=== PATIENT | male | born 1945 | race Caucasian/White ===

== ENCOUNTER 2017-03-19 13:43 | Observation (INO) ==
[2017-03-19] MEDS ORDERED: 0.9 % Sodium Chloride 500 ML IVC ONE (13:56)
[2017-03-19] MEDS ORDERED: Aspirin 81 MG TAB.CHEW PO ONE (13:56)
[2017-03-19] MEDS ORDERED: Nitroglycerin 0.4 MG TAB.SUBL SL ONE (13:56)
--- NOTE | 2017-03-19 13:59 | Emergency Department Note ---
Disposition Clinical Impression: Chest pain Disposition: Admitted As Inpatient Condition: Good Time of Disposition: 17:06 Chest Pain HPI - General Chief Complaint: ED Chest Pain Stated Complaint: Chest Pain Time Seen by Provider: 03/19/17 13:47 Source: patient Mode of arrival: ambulatory Limitations: no limitations Vital Signs Reviewed: Yes Nursing Notes Reviewed: Yes - History of Present Illness HPI Narrative: Patient presents to the ED with the chief complaint of chest pain. Patient is having his anginal equivalent to a SD he had 5 weeks ago. He required 2 stents placed at [facility] in [place]. He has been on aspirin and Plavix daily and has not missed a dose. 6. Approximately 30 minutes prior to arrival. He was getting ready to go to [place] and had the acute onset of left-sided chest heaviness and pressure. States that it was a very intense pressure that radiated into his neck and into his shoulder. He states that he immediately took a nitroglycerin which brought his pain from a 10 -5. The pain is sent started moving down into his arm on the left. States that this is the exact symptoms he had previously and he was concerned. He did get nauseated and diaphoretic which resolved after the nitroglycerin. He did develop a "nitroglycerin headache." And states that he gets this every time he takes nitroglycerin. No fever, chills, cough, congestion, changes in vision, abdominal pain, vomiting, diarrhea, pain or swelling in his legs. No history of DVT or PE. No history of malignancy. He has not smoked for over 30 years. Severity scale (1-10): 5 - Related Data Previous Rx's Medication Instructions Recorded OxyCODONE/APAP 5/325 [Percocet 1 each PO Q6HR PRN #12 tablet 05/15/16 5/325 MG] OxyCODONE/APAP 5/325 [Percocet 1 each PO Q6HR PRN #15 tablet 11/24/16 5/325 MG] Allergies Allergy/AdvReac Type Severity Reaction Status Date / Time No Known Allergies Allergy Verified 11/24/16 14:48 All systems ED: reviewed and negative except as stated. Cardiovascular: Reports: chest pain, dyspnea on exertion Respiratory: Reports: dyspnea Gastrointestinal: Reports: nausea Neurological: Reports: headache Chest Pain PMH - Past Medical History Medical history: Reports: myocardial infarction Psychiatric history: Reports: no psych history - Social History Smoking Status: Former smoker Alcohol use: Reports: none Drug use: Reports: none Physical Exam - General Limitations: no limitations General appearance: alert, other (Patient appears uncomfortable) - Head Head exam: atraumatic, normocephalic, normal inspection - Eye Eye exam: Present: normal appearance, PERRL, EOMI - ENT ENT exam: normal exam, normal oropharynx, mucous membranes moist - Neck Neck exam: Present: normal inspection, full ROM, trachea midline - Chest Chest inspection: Present: normal inspection, symmetric chest wall rise - Respiratory Respiratory exam: Present: normal lung sounds bilaterally - Cardiovascular Cardiovascular exam: Present: regular rate, normal rhythm, normal heart sounds - Abdominal Exam Abdominal exam: Present: soft, Non-Tender. Absent: tenderness, distention, guarding, rebound, rigidity - Extremities Exam Extremities exam: Present: normal inspection, full ROM. Absent: tenderness, pedal edema - Neurological Exam Neurological exam: Present: alert, oriented X3 - Skin Skin exam: Present: warm, dry, intact, normal color Course Course Narrative: Patient presenting with signs and symptoms concerning for ACS. His initial EKG does not show any acute changes. However, he is having his anginal equivalent. We will obviously check a troponin. We will also likely repeat his EKG. We will give him more nitroglycerin to see if we can completely resolve his pain. Patient will be admitted to the hospital - Reevaluation(s) Reevaluation #1: Patient was pain-free after nitroglycerin. Now complaining of headache. We will admit for angina. Repeat EKG was unchanged. Vital Signs Temperature 97.8 F 03/19/17 13:45 Pulse Rate 66 03/19/17 13:45 Respiratory Rate 20 03/19/17 13:45 Blood Pressure 136/77 03/19/17 13:45 O2 Sat by Pulse Oximetry 97 03/19/17 13:45 Temperature 97.8 F 03/19/17 13:45 Pulse Rate 55 03/19/17 17:00 Respiratory Rate 18 03/19/17 17:25 Blood Pressure 127/110 03/19/17 17:25 O2 Sat by Pulse Oximetry 98 03/19/17 17:00 Oxygen Delivery Oxygen Delivery Nasal Cannula Chest Pain - Medical Records Medical records reviewed: Yes I reviewed the patient's medical records. - Lab Data Lab results reviewed: Yes I reviewed the patient's lab results. Result diagrams: 03/19/17 14:18 03/19/17 14:18 Lab Results 03/19/17 03/19/17 03/19/17 Range/Units 14:18 14:18 14:18 WBC 7.1 (4.3-11.1) K/mcL RBC 5.05 (4.19-5.50) M/mcL Hgb 14.1 (12.9-16.9) g/dL Hct 41.7 (37.5-50.1) % MCV 82.6 L (83.0-100.0) fL MCH 27.9 L (28.0-33.3) pg MCHC 33.8 (31.6-35.5) g/dL RDW 14.1 (11.5-14.5) % Plt Count 365 (140-400) K/mcL MPV 8.9 L (9.4-12.4) fL Immature Gran % 0.3 (0-4) % Seg Neutrophils % 65.9 % Lymphocytes % 15.8 % Monocytes % 12.7 % Eosinophils % 3.9 % Basophils % 1.4 % Neutrophils # 4.7 (1.6-8.9) K/mcL Lymphocytes # 1.1 (0.6-4.6) K/mcL Monocytes # 0.9 (0.0-1.3) K/mcL Eosinophils # 0.3 (0.0-0.6) K/mcL Basophils # 0.1 (0.0-0.2) K/mcL PT 12.8 H (9.4-12.1) Seconds INR 1.2 APTT 30.6 (26.0-36.0) Seconds Sodium 138 (136-145) mEq/L Potassium 3.8 (3.5-4.5) mEq/L Chloride 102 (98-109) mEq/L Carbon Dioxide 26 (19-29) mEq/L BUN 18 (8-26) mg/dL Creatinine 1.19 (0.72-1.25) mg/dL Est GFR ( Amer) > 60 (> 60) Est GFR (Non-Af Amer) > 60 (> 60) BUN/Creatinine Ratio 15 (6-26) Glucose 104 H (70-99) mg/dL Calculated Osmolality 288 (280-300) Calcium 9.8 (8.6-10.8) mg/dL Troponin I (0-0.03) ng/mL 03/19/17 Range/Units 14:18 WBC (4.3-11.1) K/mcL RBC (4.19-5.50) M/mcL Hgb (12.9-16.9) g/dL Hct (37.5-50.1) % MCV (83.0-100.0) fL MCH (28.0-33.3) pg MCHC (31.6-35.5) g/dL RDW (11.5-14.5) % Plt Count (140-400) K/mcL MPV (9.4-12.4) fL Immature Gran % (0-4) % Seg Neutrophils % % Lymphocytes % % Monocytes % % Eosinophils % % Basophils % % Neutrophils # (1.6-8.9) K/mcL Lymphocytes # (0.6-4.6) K/mcL Monocytes # (0.0-1.3) K/mcL Eosinophils # (0.0-0.6) K/mcL Basophils # (0.0-0.2) K/mcL PT (9.4-12.1) Seconds INR APTT (26.0-36.0) Seconds Sodium (136-145) mEq/L Potassium (3.5-4.5) mEq/L Chloride (98-109) mEq/L Carbon Dioxide (19-29) mEq/L BUN (8-26) mg/dL Creatinine (0.72-1.25) mg/dL Est GFR ( Amer) (> 60) Est GFR (Non-Af Amer) (> 60) BUN/Creatinine Ratio (6-26) Glucose (70-99) mg/dL Calculated Osmolality (280-300) Calcium (8.6-10.8) mg/dL Troponin I 0.01 (0-0.03) ng/mL - Radiology Data Radiology results reviewed: Yes I reviewed the patient's radiology results. - EKG Data EKG attestation: Yes I reviewed and interpreted this EKG. EKG results narrative: Sinus rhythm, rate 65, PA interval 172, QRS 96, QTC 42, left axis deviation, no acute ischemic changes. We will trend EKGs. Repeat EKG at 1437 was unchanged. Patient is pain-free Critical Care Time Critical Care Time: Yes Total Critical Care Time: 35 Attestation: Critical care time 35 minutes managing patient's chest pain. Kailee - Kailee Situation: Demographics, MOA Background: Presenting Complaint, Relevant PMH, Meds, & Allergies Assessment: Vital Signs, Course and respsone to treatment, Exam Concerns, Patient/Family Expectation, Pertinant Lab Results, Outstanding Labs Recommendation: Recommendation based on pending studies, treatments, or consults Kailee Report Given to: Dr. Delvalle for admission Kailee Repor Time: 17:06 Attestation Statement - Attestation Attestation: Patient was seen with resident physician. I reviewed the history, physical, assessment and plan, and agree with the findings. I also personally evaluated this patient and had [id number] time with this patient. 8-year-old male presents to emergency Department chief complaint of chest pain. Pain is left chest pressure sensation radiating to the left arm across the chest. The same as his heart attack pain was proximally 5 weeks ago when he received stents at [facility] in [place]. Is associated with diaphoresis and shortness of breath. The pain has been ongoing waxing and waning for approximately 1-1.5 hours. He took one sublingual nitroglycerin that he had with him and that resolved the pain about 30%. As other symptoms at this time currently is having pain. On exam vital signs are stable. Heart regular rhythm and rate. Lungs clear. Abdomen soft and nontender. Extremity is unremarkable. Neurological the patient's intact. EKG shows no acute ischemic changes on arrival. We will do chest x-ray repeat EKG, troponin, we will administer nitroglycerin and aspirin and reevaluate. Chest x-ray revealed some mediastinal widening. CT scan of the chest was not obtained and did not reveal any significant abnormalities. Patient's pain was improved while in the emergency department. However considering his cardiac history he will require hospitalization and further evaluation and treatment. His initial troponin was negative, and 2 EKGs showed no acute ischemic changes. I agree with the resident physician assessment and plan. Critical care time 35 minutes.
[2017-03-19 14:30] LABS: Basophils # 0.1 K/mcL (0.0-0.2); Basophils % 1.4 %; Eosinophils # 0.3 K/mcL (0.0-0.6); Eosinophils % 3.9 %; Hematocrit 41.7 % (37.5-50.1); Hemoglobin 14.1 g/dL (12.9-16.9); Immature Granulocytes % 0.3 % (0-4); Lymphocytes # 1.1 K/mcL (0.6-4.6); Lymphocytes % 15.8 %; Mean Corpuscular HGB Conc 33.8 g/dL (31.6-35.5); Mean Corpuscular Hemoglobin 27.9 pg (28.0-33.3); Mean Corpuscular Volume 82.6 fL (83.0-100.0); Mean Platelet Volume 8.9 fL (9.4-12.4); Monocytes # 0.9 K/mcL (0.0-1.3); Monocytes % 12.7 %; Neutrophils # 4.7 K/mcL (1.6-8.9); Platelet Count 365 K/mcL (140-400); Red Blood Count 5.05 M/mcL (4.19-5.50); Red Cell Distribution Width 14.1 % (11.5-14.5); Segmented Neutrophils % 65.9 %
[2017-03-19] MEDS ORDERED: *HR* HYDROmorphone (PF) 1 MG/ML SYRINGE IVP ONE ×2 (14:33→16:54)
[2017-03-19 14:35] LABS: INR 1.2; Prothrombin Time 12.8 Seconds (9.4-12.1)
[2017-03-19 14:38] LABS: Activated Partial Thrombo Time 30.6 Seconds (26.0-36.0)
[2017-03-19 14:43] LABS: BUN/Creatinine Ratio 15 (6-26); Blood Urea Nitrogen 18 mg/dL (8-26); Calcium 9.8 mg/dL (8.6-10.8); Carbon Dioxide 26 mEq/L (19-29); Chloride 102 mEq/L (98-109); Glucose 104 mg/dL (70-99); Osmolality,Calculated 288 (280-300); Potassium 3.8 mEq/L (3.5-4.5); Sodium 138 mEq/L (136-145); eGFR For African Americans > 60 (> 60); eGFR For Non-African Americans > 60 (> 60)
--- NOTE | 2017-03-19 18:54 | Internal Med History&Physical ---
Date of Encounter: 03/19/17 Time of Encounter: 18:50 Assessment and Plan (1) Chest pain Current visit: Yes Status: Acute currently chest pain is better as per the pt. he took one ntg on his way to ED. has had 2 stents placed 6 weeks ago and says that he is compliant with his meds will trend trop, first trop negative. no EKG changes. since stenting was done 6 weeks ago, very less chance of restenosis or thrombosis of the stent. will continue DAPT. Qualifiers: Chest pain type: unspecified Qualified Code(s): R07.9 - Chest pain, unspecified (2) CAD (coronary artery disease) Current visit: Yes Status: Acute Qualifiers: Associated angina: with stable angina Qualified Code(s): I25.118 - Atherosclerotic heart disease of [place] coronary artery with other forms of angina pectoris (3) HTN (hypertension) Current visit: Yes Status: Acute will continue home meds, BP stable for now. Qualifiers: Hypertension type: essential hypertension Qualified Code(s): I10 - Essential (primary) hypertension Internal Medicine - H&P: HPI Chief complaint: chest pain Admitted From: Home Plans for Post Hospital Care: Home History of present illness: Mr. Edwards is a 71 year old male with PMH of CAD s/p stenting, HTN presented to ED with left sided chest pain. He required 2 stents placed at [facility] in [place]. He has been on aspirin and Plavix daily and has not missed a dose. Approximately 30 minutes prior to arrival. He was getting ready to go to [place] and had the acute onset of left-sided chest heaviness and pressure. States that it was a very intense pressure that radiated into his neck and into his shoulder. He states that he immediately took a nitroglycerin which brought his pain from a 10-5. He did get nauseated and diaphoretic which resolved after the nitroglycerin. He did develop a "nitroglycerin headache." And states that he gets this every time he takes nitroglycerin. No fever, chills, cough, congestion, changes in vision, abdominal pain, vomiting, diarrhea, pain or swelling in his legs. No history of DVT or PE. No history of malignancy. He has not smoked for over 30 years. he reports similar chest pain 1 week after the stent placement and he reports that his meds was adjusted( he does not recall which one). Past Med Surg Social Fam HX - Past Medical History Medical history: hypertension, myocardial infarction Psychiatric history: no psych history - Past Surgical History Surgical History: appendectomy - Social History Smoking Status: Former smoker Smokeless Tobacco Status: No Alcohol use: none Drug use: none - Family History Father Hx Family Cancer: Yes Internal Medicine - H&P: Meds OxyCODONE/APAP 5/325 [Percocet 5/325 MG] 1 each PO Q6HR PRN #12 tablet 05/15/16 [Rx] OxyCODONE/APAP 5/325 [Percocet 5/325 MG] 1 each PO Q6HR PRN #15 tablet 11/24/16 [Rx] Allergies No Known Allergies Allergy (Verified 11/24/16 14:48) All Systems PM: A 10-system review of systems was performed and is negative for pertinent findings except as documented above in the HPI. - Constitutional Constitutional: no chills, no fever(s), no night sweats - EENT Eyes: no change in vision, no discharge, no pain, no photophobia Ears: no ear discharge, no ear pain, no tinnitus Nose, mouth and throat: no dysphagia, no nasal discharge, no neck pain, no sore throat - Cardiovascular Cardiovascular ROS IM: chest pain - Respiratory Respiratory: no cough, no dyspnea, no wheezing, no excessive phlegm production - Gastrointestinal Gastrointestinal: no abdominal pain, no diarrhea, no hematemesis, no hematochezia, no melena, no nausea, no vomiting - Musculoskeletal Musculoskeletal ROS IM: no numbness, no tingling - Constitutional Vitals: Temp Pulse Resp BP Pulse Ox 97.8 F 55 18 127/110 98 03/19/17 13:45 03/19/17 17:00 03/19/17 17:25 03/19/17 17:25 03/19/17 17:00 General appearance: Present: A&O X 3, no acute distress Exam: neck- supple chest- b/l clear, no added sounds CVS-s1 and s2, no m/r/g abd-soft, non tender, bs are present ext- no edema neuro- no focal deficits Internal Med - H&P Results - Labs CBC & Chem 7: 03/19/17 14:18 03/19/17 14:18
[2017-03-19] MEDS ORDERED: Naloxone 0.4 MG/ML INJ IVP PRN (19:09)
[2017-03-19] MEDS: Nitroglycerin 0.4 MG TAB.SUBL SL PRN ×2 (20:39→20:45)
[2017-03-19] MEDS: *HR* HYDROcodone/Acet 5/325 mg TABLET PO PRN (20:40)
[2017-03-19] MEDS: *HR* Morphine 2 MG/ML SYRINGE IVP PRN (23:27)
[2017-03-20 02:57] LABS: Basophils # 0.1 K/mcL (0.0-0.2); Basophils % 1.4 %; Eosinophils # 0.3 K/mcL (0.0-0.6); Eosinophils % 5.2 %; Hematocrit 39.4 % (37.5-50.1); Hemoglobin 13.1 g/dL (12.9-16.9); Immature Granulocytes % 0.3 % (0-4); Lymphocytes # 1.2 K/mcL (0.6-4.6); Lymphocytes % 20.3 %; Mean Corpuscular HGB Conc 33.2 g/dL (31.6-35.5); Mean Corpuscular Hemoglobin 27.6 pg (28.0-33.3); Mean Corpuscular Volume 83.1 fL (83.0-100.0); Mean Platelet Volume 8.6 fL (9.4-12.4); Monocytes # 0.8 K/mcL (0.0-1.3); Monocytes % 13.2 %; Neutrophils # 3.5 K/mcL (1.6-8.9); Platelet Count 313 K/mcL (140-400); Red Blood Count 4.74 M/mcL (4.19-5.50); Red Cell Distribution Width 14.3 % (11.5-14.5); Segmented Neutrophils % 59.6 %
[2017-03-20 03:12] LABS: BUN/Creatinine Ratio 13 (6-26); Blood Urea Nitrogen 15 mg/dL (8-26); Calcium 9.2 mg/dL (8.6-10.8); Carbon Dioxide 27 mEq/L (19-29); Chloride 104 mEq/L (98-109); Glucose 97 mg/dL (70-99); Osmolality,Calculated 287 (280-300); Potassium 3.5 mEq/L (3.5-4.5); Sodium 138 mEq/L (136-145); eGFR For African Americans > 60 (> 60); eGFR For Non-African Americans > 60 (> 60)
[2017-03-20] MEDS: *HR* Morphine 2 MG/ML SYRINGE IVP PRN (03:23)
[2017-03-20] MEDS: *HR* HYDROcodone/Acet 5/325 mg TABLET PO PRN (06:18)
[2017-03-20 07:09] VITALS: BP 155/71
[2017-03-20] MEDS ORDERED: Lisinopril 20 MG TABLET PO SCH (09:00)
[2017-03-20] MEDS ORDERED: Aspirin 325 MG TABLET PO SCH (09:00)
[2017-03-20] MEDS ORDERED: Diltiazem CD (24hr) 240 MG CAPSULE PO SCH (09:00)
--- NOTE | 2017-03-20 09:31 | Electrocardiograph Report ---
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
[2017-03-20] MEDS ORDERED: Ondansetron 4 MG/2 ML VIAL IVP ONE (09:54)
[2017-03-20] MEDS ORDERED: Ketorolac 30 MG/ML VIAL IVP ONE (09:54)
[2017-03-20] MEDS: SUMAtriptan succinate 50 MG TABLET PO PRN ×2 (11:37→13:26)
--- NOTE | 2017-03-20 13:07 | Discharge Summary ---
Date of Encounter: 03/20/17 Time of Encounter: 09:30 - Discharge Diagnosis (1) Chest pain Priority: Primary Status: Resolved Comments: Patient denied chest pain after admission. He endorsed mild pressure but denies shortness of breath. He had URI symptoms on examination. Troponins negative 3. Chest x-ray and chest CTA unremarkable. Acute coronary syndrome ruled out. Qualifiers: Chest pain type: unspecified Qualified Code(s): R07.9 - Chest pain, unspecified (2) URI (upper respiratory infection) Priority: Primary Status: Acute Comments: Patient with nasal congestion, sinus headache, and postnasal drip. Mucinex. Suspect viral, no indication for antibiotics. (3) Drug-seeking behavior Priority: Primary Status: Acute Comments: OAS report with 21 prescribers from all around [place]. Patient continually asked for controlled substances while admitted and became very angry when he was not getting them. (4) CAD (coronary artery disease) Priority: Secondary Status: Chronic (5) HTN (hypertension) Priority: Secondary Status: Chronic Comments: Borderline hypertensive at time of discharge however patient was upset that he was not getting Dilaudid. Recommend daily blood pressure checks at home, keeping a log, and following up closely outpatient. Qualifiers: Hypertension type: essential hypertension Qualified Code(s): I10 - Essential (primary) hypertension - Discharge Medications Prescriptions: Guaifenesin [Guaifenesin ER] 1,200 mg PO BID #10 tab.er.12h SUMAtriptan [Imitrex] 50 mg PO Q2H PRN #20 tablet PRN Reason: Migraine Headache Home Medications: Aspirin [Lo-Dose Aspirin EC] 81 mg PO DAILY 03/20/17 [History] Clopidogrel [Plavix] 75 mg PO DAILY 03/20/17 [History] Diltiazem HCl [Diltiazem 24Hr Cd] 240 mg PO BID 03/20/17 [History] Guaifenesin [Guaifenesin ER] 1,200 mg PO BID #10 tab.er.12h 03/20/17 [Rx] HydrALAZINE 25 mg PO Q8HR 03/20/17 [History] Lisinopril [Zestril] 20 mg PO BID 03/20/17 [History] Metoprolol [Lopressor] 50 mg PO BID 03/20/17 [History] SUMAtriptan [Imitrex] 50 mg PO Q2H PRN #20 tablet 03/20/17 [Rx] Allergies/Adverse Reactions: Allergies No Known Allergies Allergy (Verified 11/24/16 14:48) Procedures/tests Complete & Pending: Procedures Performed prior 72 hours Category Date Time Status ECG 12 lead ECG [ECG] Routine Y 03/19/17 20:48 Completed Date of admission: 03/19/17 17:11 Primary care physician: PCP PA Discharging clinician: Prema Chen Anticipated date of discharge: 03/20/17 - Patient Status Disposition: Home, Self-Care Condition: Fair Functional capacity at discharge: independent ambulation Overall status at discharge: patient is back to baseline - Discharge Instructions Follow Up With: [facility] [Primary Care Provider] - Additional Instructions: Follow-up with primary care provider within one to 2 weeks - Diet and Activity Activity: increase activity as tolerated Diet: low fat, low cholesterol, low salt diet Hospital course: Mr. Edwards is a 71 year old male with past medical history of hypertension, former tobacco abuse, CAD status post stent. Patient had 2 stents placed 6 weeks ago at a hospital in [place]. He has been on aspirin and Plavix daily and endorses compliance. Patient presented to the emergency department chief complaint left-sided chest pain that began 30 minutes prior to presentation. Patient stated he was getting ready to go into a store when he had acute onset of left-sided chest heaviness and pressure that varied in intensity and radiated to his neck and his shoulder. He states he took a nitroglycerin which brought his pain down. He also endorsed nausea and diaphoresis which resolved after the nitroglycerin. Patient stating after he took the nitroglycerin that he developed what he referred to as a nitroglycerin headache and states he gets these every time he has to take nitroglycerin. No shortness of breath or swelling in his legs. No changes in his vision or gait. No history of DVT/PE. Workup in the emergency department unremarkable. No ECG changes. Chest x- ray unremarkable. Chest CTA negative for acute processes. Patient was admitted to the hospitalist service for further evaluation and management. Troponins negative 3. Patient denied chest pain throughout his admission. He did endorse intermittent chest pressure but his chief complaint was a headache. Refractory to NSAIDs. Patient became verbally aggressive with nursing staff when he was informed that he would not be receiving Dilaudid. OARRS report was checked which revealed 21 different prescribers over the past year from all over the state of [place]. Patient was again informed that he would not be receiving any controlled substances. His headache was abated with Imitrex which she was sent home on a small supply of. On examination, physical examination consistent with URI with nasal congestion and postnasal drip and sinus pressure. He was also started on guaifenesin. Acute coronary syndrome ruled out. Patient stating he wanted to leave immediately after being told he would not be receiving any narcotic pain medication. He was discharged home in stable condition with close outpatient follow-up recommended. ITS Impressions Chest X-Ray 03/19/17 13:56 IMPRESSION: 1. No prior studies are available for comparison. 2. Minimal widening of the superior mediastinum which is favored to be related to low lung volumes and portable technique. If there is concern for acute vascular injury, dedicated CTA is recommended. 3. Minimal interstitial edema. D/ / 03/19/2017 14:39:36 Ellen Rueda MD / day Interpreting Provider: Ellen Rueda MD Chest CTA 03/19/17 14:56 IMPRESSION: No evidence of pulmonary embolism or acute pulmonary abnormality. Thoracic aorta is normal caliber. D/ / Fito Garcia MD / Fito Garcia MD Interpreting Provider: Fito Garcia MD - Time Spent with Patient Total time spent providing and/or coordinating discharge services: - Constitutional Vitals: Temp Pulse Resp BP Pulse Ox 97.9 F 69 16 155/71 95 03/20/17 07:08 03/20/17 07:08 03/20/17 07:08 03/20/17 07:08 03/20/17 07:08 General appearance: Present: A&O X 3, no acute distress, answers questions appropriately - Head Head exam: Present: atraumatic, normocephalic - Eye Eye exam: Present: PERRL, conjuntiva pink, sclera anicteric Pupils: Present: PERRL - Neck Neck exam general surgery: Present: supple, trachea midline. Absent: lymphadenopathy - Respiratory Respiratory exam: Present: CTAB. Absent: accessory muscle use, rales, respiratory distress, rhonchi, wheezes - Cardiovascular Cardiovascular exam: Present: RRR, +S1, +S2. Absent: diastolic murmur, gallop, rubs, systolic murmur - GI/Abdominal GI/Abdominal exam: Present: normal bowel sounds, soft, no peritoneal signs. Absent: distended, tenderness - Extremities Exam Extremities exam: Present: warm, radial pulses palpable and symetrical. Absent : calf tenderness, cyanotic, pedal edema - Neurological Exam Neurological exam: Present: alert, CN II-XII intact, normal gait, oriented X3, no focal deficits, strengths equal and symetr throughout. Absent: pronater drift, facial droop, speech deficit - Psychiatric Psychiatric exam: Present: agitated. Absent: suicidal ideation - Expanded Psychiatric Exam Focused psych exam: Present: restlessness - Skin Skin exam: Present: dry, intact, normal color, warm
[2017-03-20] MEDS ORDERED: hydrALAZINE 25 MG TABLET PO SCH (16:00)
--- NOTE | 2017-03-20 18:02 | Electrocardiograph Report ---
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
== END 2017-03-20 13:45 | disposition home or self-care (01) ==
LOC: 3BNU 13:43 → EMEROO 13:43 → 3BNU 18:00
PROVIDERS: ADMIT Nurse Practitioner Family; ATTEND Nurse Practitioner Family

== ENCOUNTER 2017-05-10 03:05 | Observation (INO) ==
[2017-05-10] MEDS ORDERED: Aspirin 81 MG TAB.CHEW PO ONE (03:11)
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
[2017-05-10 03:27] LABS: Basophils % 0.1 %; Hematocrit 42.3 % (37.5-50.1); Hemoglobin 14.3 g/dL (12.9-16.9); Immature Granulocytes % 0.5 % (0-4); Lymphocytes # 0.9 K/mcL (0.6-4.6); Lymphocytes % 4.2 %; Mean Corpuscular HGB Conc 33.8 g/dL (31.6-35.5); Mean Corpuscular Hemoglobin 28.2 pg (28.0-33.3); Mean Corpuscular Volume 83.4 fL (83.0-100.0); Mean Platelet Volume 9.4 fL (9.4-12.4); Monocytes # 1.4 K/mcL (0.0-1.3); Monocytes % 6.6 %; Neutrophils # 18.3 K/mcL (1.6-8.9); Platelet Count 246 K/mcL (140-400); Red Blood Count 5.07 M/mcL (4.19-5.50); Red Cell Distribution Width 14.5 % (11.5-14.5); Segmented Neutrophils % 88.6 %
[2017-05-10] MEDS: Nitroglycerin 0.4 MG TAB.SUBL SL ONE ×3 (03:27→03:36)
[2017-05-10 03:39] LABS: BUN/Creatinine Ratio 15 (6-26); Blood Urea Nitrogen 18 mg/dL (8-26); Calcium 10.3 mg/dL (8.6-10.8); Carbon Dioxide 21 mEq/L (19-29); Chloride 106 mEq/L (98-109); Glucose 168 mg/dL (70-99); Osmolality,Calculated 292 (280-300); Potassium 3.9 mEq/L (3.5-4.5); Sodium 138 mEq/L (136-145); eGFR For African Americans > 60 (> 60); eGFR For Non-African Americans > 60 (> 60)
[2017-05-10] MEDS ORDERED: Nitroglycerin 1 INCH/GM PACKET TP ONE (04:14)
[2017-05-10] MEDS ORDERED: Ondansetron 4 MG/2 ML VIAL IVP PRN (05:02)
[2017-05-10] MEDS ORDERED: Naloxone 0.4 MG/ML INJ IVP PRN (05:02)
[2017-05-10] MEDS ORDERED: Acetaminophen 325 MG TABLET PO PRN (05:02)
--- NOTE | 2017-05-10 05:02 | Internal Med History&Physical ---
Date of Encounter: 05/10/17 Time of Encounter: 04:45 Assessment and Plan (1) Chest pain Current visit: Yes Status: Acute Acute on chronic chest pain - possible unstable angina - rule out ACS Continue aspirin, Plavix and statin Recent LHC with stents at [facility] EKG - sinus rhythm with no acute ST-T changes Troponin negative - trend troponin Chest x-ray - negative for any acute process Echocardiogram pending Cardiology consult Labs in a.m. Qualifiers: Chest pain type: unspecified Qualified Code(s): R07.9 - Chest pain, unspecified (2) CAD (coronary artery disease) Current visit: No Status: Chronic Coronary artery disease status post stents Recent left heart catheter with stents at [facility] Continue aspirin, Plavix and statin Qualifiers: Coronary Disease-Associated Artery/Lesion type: [place] artery [place] vs. transplanted heart: [place] heart Associated angina: with stable angina Qualified Code(s): I25.118 - Atherosclerotic heart disease of [place] coronary artery with other forms of angina pectoris (3) Leukocytosis Current visit: Yes Status: Acute Leukocytosis - unclear etiology, possibly reactive, WBC 20.7 UA and cultures pending Empiric IV Rocephin Labs in a.m. Qualifiers: Leukocytosis type: unspecified Qualified Code(s): D72.829 - Elevated white blood cell count, unspecified (4) HTN (hypertension) Current visit: No Status: Chronic Essential hypertension, controlled, monitor Continue home medications Qualifiers: Hypertension type: essential hypertension Qualified Code(s): I10 - Essential (primary) hypertension (5) Hyperlipidemia Current visit: Yes Status: Chronic Continue statin, lipid panel pending Qualifiers: Hyperlipidemia type: mixed hyperlipidemia Qualified Code(s): E78.2 - Mixed hyperlipidemia (6) Drug-seeking behavior Current visit: No Status: Chronic As per medical records patient has a history of drug-seeking behavior OARRS report with 21 prescriber is from [place] - as per records (7) DVT prophylaxis Current visit: Yes Status: Acute Continue heparin subcutaneous Internal Medicine - H&P: HPI Chief complaint: Chest pain Admitted From: Emergency Dept History of present illness: Mr. Edwards is a 71 year old male with past medical history of hypertension, hyperlipidemia, coronary artery disease status post stents and GERD. Patient presents to the ED with complaints of chest pain that started just prior to arrival. Patient states he was driving back from [place] when his symptoms began. Patient describes it as left-sided chest pain radiating to his neck. He does have associated nausea and mild diaphoresis. Mild shortness of breath, which is now resolved. He initially took 2 nitroglycerin and this improved his symptoms. Patient describes the pain as pressure type of pain and rates it about 6 out of 10 in intensity. No aggravating factors. He says it has now improved and the ED with a nitroglycerin patch. Patient also complains of a headache at present. Patient denies shortness of breath at present, denies palpitations denies abdominal pain or vomiting or nausea or dizziness. No other associated symptoms. On examination patient is awake and alert. He is able to provide all history. No family members at bedside. He is in discomfort due to chest pain. Initial ED workup shows troponin is negative, EKG shows sinus rhythm with left axis deviation with no acute ST-T changes, white count is elevated, chest x-ray is negative for any acute process. Patient is being placed in observation for chest pain, rule out ACS. We will continue aspirin and Plavix and statin. Patient apparently had a recent left heart catheter about 2 months ago with stents at [facility]. Cardiology consult. Patient has been explained about his condition and plan of care. He understood and agreed. No unanswered questions. CODE STATUS full code. Past Med Surg Social Fam HX - Past Medical History Medical history: GERD, myocardial infarction, hyperlipidemia, hypertension Psychiatric history: no psych history - Past Surgical History Surgical History: appendectomy - Social History Smoking Status: Former smoker Smokeless Tobacco Status: No Alcohol use: none Drug use: none - Family History Father Hx Family Cancer: Yes Internal Medicine - H&P: Meds Aspirin [Lo-Dose Aspirin EC] 81 mg PO DAILY 03/20/17 [History] Clopidogrel [Plavix] 75 mg PO DAILY 03/20/17 [History] Diltiazem HCl [Diltiazem 24Hr Cd] 240 mg PO BID 03/20/17 [History] Guaifenesin [Guaifenesin ER] 1,200 mg PO BID #10 tab.er.12h 03/20/17 [Rx] Lisinopril [Zestril] 20 mg PO BID 03/20/17 [History] Metoprolol [Lopressor] 50 mg PO BID 03/20/17 [History] SUMAtriptan succinate [Imitrex] 50 mg PO Q2H PRN #20 tablet 03/20/17 [Rx] hydrALAZINE [HydrALAZINE] 25 mg PO Q8HR 03/20/17 [History] Aspirin [Lo-Dose Aspirin EC] 81 mg PO DAILY 04/20/17 [History] Atorvastatin Calcium [Lipitor] 40 mg PO HS 04/20/17 [History] Clopidogrel [Plavix] 75 mg PO DAILY 04/20/17 [History] Diltiazem HCl [Diltiazem 24Hr Cd] 240 mg PO DAILY 04/20/17 [History] Isosorbide DInitrate [Isosorbide Dinitrate] 30 mg PO DAILY 04/20/17 [History] Lansoprazole [Prevacid] 15 mg PO BIDAC 04/20/17 [History] Lisinopril [Zestril] 20 mg PO DAILY 04/20/17 [History] Metoprolol [Lopressor] 50 mg PO BID 04/20/17 [History] Allergies No Known Allergies Allergy (Verified 11/24/16 14:48) All Systems PM: A 10-system review of systems was performed and is negative for pertinent findings except as documented above in the HPI. - Constitutional Constitutional: no fatigue, no fever(s), no weakness - EENT Eyes: no blurry vision, no loss of vision - Cardiovascular Cardiovascular ROS IM: chest pain, diaphoresis, no dyspnea, no dyspnea on exertion, no lightheadedness, no orthopnea, no syncope - Respiratory Respiratory: no cough, no dyspnea, no dyspnea on exertion, no wheezing, no chest congestion - Gastrointestinal Gastrointestinal: no abdominal pain, no cramping, no diarrhea, no nausea, no vomiting - Genitourinary Genitourinary ROS male: no dysuria - Musculoskeletal Musculoskeletal ROS IM: no arthralgias - Neurological Neurological ROS: headache(s), no abnormal gait, no confusion, no dizziness, no focal weakness, no loss of vision, no numbness - Constitutional Vitals: Temp Pulse Resp BP Pulse Ox 97.6 F 84 20 162/103 93 05/10/17 03:05 05/10/17 04:00 05/10/17 04:51 05/10/17 04:51 05/10/17 04:00 General appearance: Present: A&O X 3, no acute distress, answers questions appropriately Exam: Not in any distress, but in obvious discomfort due to chest pain - Head Head exam: Present: atraumatic - Eye Eye exam: Present: EOMI - ENT ENT exam: Present: mucous membranes moist - Neck Neck exam general surgery: Present: supple - Respiratory Respiratory exam: Present: CTAB. Absent: rales, rhonchi, wheezes - Cardiovascular Cardiovascular exam: Present: RRR, +S1, +S2 - GI/Abdominal GI/Abdominal exam: Present: soft, no peritoneal signs. Absent: distended, firm , guarding, rigid, tenderness - Extremities Exam Extremities exam: Present: radial pulses palpable and symetrical. Absent: cyanotic, pedal edema, tenderness - Neurological Exam Neurological exam: Present: alert, oriented X3, no focal deficits Internal Med - H&P Results - Labs CBC & Chem 7: 05/10/17 03:20 05/10/17 03:20
[2017-05-10] MEDS: *HR* Morphine 2 MG/ML SYRINGE IVP PRN ×3 (05:33→14:18)
[2017-05-10] MEDS ORDERED: Nitroglycerin 0.4 MG TAB.SUBL SL PRN (05:36)
[2017-05-10] MEDS ORDERED: Famotidine 20 MG/2 ML VIAL IVP SCH (06:00)
[2017-05-10] MEDS ORDERED: *HR* Heparin 5,000 UNIT/ML VIAL SQ SCH (06:00)
[2017-05-10] MEDS ORDERED: hydrALAZINE 25 MG TABLET PO SCH (08:00)
[2017-05-10 08:26] LABS: Bilirubin,Urine Negative (Negative); Blood,Urine Negative (Negative); Clarity,Urine Clear (Clear); Color,Urine Yellow (Yellow); Glucose,Urine (UA) Normal (Normal); Ketones,Urine Negative (Negative); Leukocyte Esterase,Urine Negative (Negative); Nitrite,Urine Negative (Negative); PH,Urine 5.5 pH Units (5.0-8.0); Protein,Urine Negative (Neg-Trace); Specific Gravity,Urine 1.013 (1.010-1.025); Urobilinogen,Urine Normal (Normal)
[2017-05-10 08:34] LABS: Chol/HDL Ratio 3.5 (0-4.9)
[2017-05-10] MEDS ORDERED: Aspirin Enteric Coated 81 MG Tablet PO SCH (09:00)
[2017-05-10] MEDS ORDERED: Lisinopril 20 MG TABLET PO SCH (09:00)
[2017-05-10] MEDS ORDERED: Diltiazem CD (24hr) 240 MG CAPSULE PO SCH (09:00)
[2017-05-10 09:24] LABS: Hemoglobin A1C 5.7 %
[2017-05-10 09:51] LABS: Amphetamine Screen,Urine Negative ng/mL (Cutoff=1000); Barbiturate Screen,Urine Negative ng/mL (Cutoff=200); Benzodiazepines Screen,Urine Negative ng/mL (Cutoff=200); Cannabinoid Screen,Urine Negative ng/mL (Cutoff = 50); Cocaine Screen,Urine Negative ng/mL (Cutoff= 300); Opiate Screen,Urine Positive ng/mL (Cutoff=300); Phencyclidine Screen,Urine Negative ng/mL (Cutoff=25)
--- NOTE | 2017-05-10 12:07 | Cardiology Consult Note ---
Date of Encounter: 05/10/17 Time of Encounter: 12:00 Assessment and Plan (1) Chest pain Current Visit: Yes Status: Acute Per Cardiology: Atypical, occurring at rest. Chronic back pain and unable to received injections now d/t inability to stop plavix (stenting 01/2017). Trops negative x 3. Outside records received from [facility] inpatient underwent stenting to diagonal branch in January 2017 with multiple recurrent hospitalizations for chest pain. Normal stress test February 2017. Repeat left heart catheterization April 14, 2017-- nonobstructive CAD. Assuming echo (already ordered) shows no significant findings, f/u with primary social insurance administrator. Will s/o, re-consult PRN. Qualifiers: Chest pain type: unspecified Qualified Code(s): R07.9 - Chest pain, unspecified (2) CAD (coronary artery disease) Current Visit: No Status: Chronic Per Cardiology: LHC 04/14/17 at [facility] showed patent diagonal stent with mild nonobstructive disease-- left Main 10-20%, circumflex 20-30%, RCA 20-40% diffuse disease, patent diagonal stent. On asa, plavix, statin, BB, ACEI, Imdur- - patient agreeable to increase Imdur to 60mg PO daily and f/u with his primary [employer] Att[employer] Dr. Esquivel in a few weeks as scheduled. Qualifiers: Coronary Disease-Associated Artery/Lesion type: [place] artery [place] vs. transplanted heart: [place] heart Associated angina: with stable angina Qualified Code(s): I25.118 - Atherosclerotic heart disease of [place] coronary artery with other forms of angina pectoris (3) HTN (hypertension) Current Visit: No Status: Chronic Per Cardiology: Elevated 180's on arrival. Currently improved. Monitor. Qualifiers: Hypertension type: essential hypertension Qualified Code(s): I10 - Essential (primary) hypertension (4) Leukocytosis Current Visit: Yes Status: Acute Per Cardiology: Afebrile. Management per primary service. Qualifiers: Leukocytosis type: unspecified Qualified Code(s): D72.829 - Elevated white blood cell count, unspecified Discussion w patient/family: The assessment and plan as outlined above was discussed with the patient and/or family members who expressed understanding and agreement. All questions were answered. Thank you for involving us in the care of your patient. Please call with any questions. History of Present Illness Consult date: 05/10/17 Consult reason: CP, hx of CAD Chief complaint: CP, Back Pain History of present illness: Mr. Edwards is a 71 year old male with relevant past medical history of seizure disorder, hypertension, GERD, chronic back pain, and CAD. Previous records reviewed: "Patient presents to the ED with complaints of chest pain that started just prior to arrival. Patient states he was driving back from [place] when his symptoms began. Patient describes it as left-sided chest pain radiating to his neck. He does have associated nausea and mild diaphoresis. Mild shortness of breath, which is now resolved. He initially took 2 nitroglycerin and this improved his symptoms. Patient describes the pain as pressure type of pain and rates it about 6 out of 10 in intensity. No aggravating factors". Cardiology consult for chest pain. Confirms above information. Patient reports no chest pain currently. Reports back pain-- chronic. Had previously received injections until unable to complete d/t Plavix. Reports recent addition of Imdur 30mg PO daily about 1 week ago. Past Med Surg Social Fam HX - Past Medical History Attestation: Yes The following information was validated with the patient. Source: patient, old records reviewed Medical history: coronary artery disease, GERD, hyperlipidemia, hypertension, myocardial infarction Psychiatric history: no psych history - Past Surgical History Surgical History: appendectomy - Social History Smoking Status: Former smoker Smokeless Tobacco Status: No Alcohol use: none Drug use: none - Family History Father Hx Family Cancer: Yes Medications and Allergies Aspirin [Lo-Dose Aspirin EC] 81 mg PO DAILY 03/20/17 [History] Clopidogrel [Plavix] 75 mg PO DAILY 03/20/17 [History] Diltiazem HCl [Diltiazem 24Hr Cd] 240 mg PO BID 03/20/17 [History] Lisinopril [Zestril] 20 mg PO BID 03/20/17 [History] Metoprolol [Lopressor] 50 mg PO BID 03/20/17 [History] Atorvastatin Calcium [Lipitor] 40 mg PO HS 04/20/17 [History] Isosorbide DInitrate [Isosorbide Dinitrate] 30 mg PO DAILY 04/20/17 [History] Lansoprazole [Prevacid] 15 mg PO BIDAC 04/20/17 [History] Albuterol Sulfate [Albuterol Inhaler] 2 puff IH Q6HR PRN 05/10/17 [History] Furosemide [Lasix] 20 mg PO DAILY PRN 05/10/17 [History] Potassium Chloride [K-Tab ER] 20 meq PO DAILY PRN MDD WITH LASIX 05/10/17 [ History] Allergies No Known Allergies Allergy (Verified 11/24/16 14:48) All Systems Review: A 10-system review of systems was performed and is negative for pertinent findings except as documented above in the HPI. - Cardiovascular Cardiovascular: as per HPI, chest pain at rest - Musculoskeletal Musculoskeletal: back pain Physical Examination Vital Signs, Last 4 Hours Temp Pulse Resp BP Pulse Ox 05/10/17 11:45 97.6 F 70 18 163/75 96 Selected Entries 05/10/17 03:05 Blood Pressure 183/112 General: Conversant, No Apparent Distress HEENT: Atraumatic, Normocephaly, Mucus Membranes Moist Neck: No JVD, Normal carotid pulses Cardiac: Reg Rate and Rhythm, Normal S1 and S2, No Murmur Lungs: Normal Breath Sounds, No Wheeze, Rales, Rhonchi Neuro: Alert and responsive, No focal deficits noted Abdomen: Soft, Non-Tender Skin: No rashes noted on visualized skin Musculoskeletal: No Chest Wall Tenderness, Other (c/o back pain ) Extremities: No Clubbing, No Cyanosis, No Edema, Normal Pulses Results 05/10/17 03:20 05/10/17 03:20 Lab Results Laboratory Tests 05/10/17 05/10/17 05/10/17 03:20 03:20 07:51 WBC 20.7 H Troponin I 0.00 B-Natriuretic Peptide 80 LDL Cholesterol, Calc Urine Opiates Screen 05/10/17 05/10/17 05/10/17 07:51 07:51 08:12 WBC Troponin I 0.01 B-Natriuretic Peptide LDL Cholesterol, Calc 82 Urine Opiates Screen Positive H ITS Impressions Chest X-Ray 05/10/17 03:11 IMPRESSION: 1. No acute cardiopulmonary disease. D/ / Sterling Duggan MD / Sterling Duggan MD Interpreting Provider: Sterling Duggan MD Active Medications Acetaminophen (Tylenol) 650 mg PO Q6HR PRN PRN Reason: Mild Pain (1-3) Stop: 11/09/17 05:03 Aspirin (Aspirin Ec) 81 mg PO DAILY [facility] Stop: 11/09/17 09:01 Atorvastatin Calcium (Lipitor) 40 mg PO HS [facility] Stop: 11/09/17 05:16 Last Admin: 05/10/17 05:33 Dose: 40 mg Clopidogrel Bisulfate (Plavix) 75 mg PO DAILY [facility] Stop: 11/09/17 09:01 Diltiazem HCl (Cardizem Cd) 240 mg PO DAILY [facility] Stop: 11/09/17 09:01 Famotidine (Pepcid) 20 mg IVP Q12HR [facility] Stop: 11/09/17 06:01 Last Admin: 05/10/17 05:34 Dose: 20 mg Heparin Sodium (Porcine) (Heparin) 5,000 unit SQ Q8HCO [facility] Stop: 11/09/17 06:01 Last Admin: 05/10/17 05:33 Dose: 5,000 unit Hydralazine HCl (Hydralazine) 25 mg PO Q8HR [facility] Stop: 11/09/17 08:01 Ceftriaxone Sodium 1,000 mg/ (Dextrose) 100 mls @ 200 mls/hr IVPB Q24H [facility] Stop: 11/09/17 06:01 Last Admin: 05/10/17 06:47 Dose: 200 mls/hr Isosorbide Dinitrate (Isordil) 30 mg PO DAILY [facility] Stop: 11/09/17 09:01 Lisinopril (Zestril) 20 mg PO DAILY [facility] PRN Reason: Protocol Stop: 11/09/17 09:01 Metoprolol Tartrate (Lopressor) 50 mg PO BID [facility] Stop: 11/09/17 09:01 Morphine Sulfate (Morphine Sulfate) 2 mg IVP Q4HR PRN PRN Reason: Severe Pain (7-10) Stop: 11/09/17 05:03 Last Admin: 05/10/17 09:39 Dose: 2 mg Naloxone HCl (Narcan) 0.4 mg IVP Q2MIN PRN PRN Reason: Opioid Reversal Stop: 11/09/17 05:03 Nitroglycerin (Nitroglycerin) 0.4 mg SL Q5MIN PRN PRN Reason: Chest Pain Stop: 11/09/17 05:37 Last Admin: 05/10/17 08:18 Dose: 0.4 mg Ondansetron HCl (Zofran) 4 mg IVP Q8HR PRN PRN Reason: Nausea And Vomiting Stop: 11/09/17 05:03 - Imaging and Cardiology Chest Xray: report reviewed Echo: pending Cardiac cath: report reviewed - EKG Interpretation EKG results cardiology: personally reviewed, normal ECG, sinus rhythm, other ( SR on tele) Consult Discharge Plan - Plan Referrals: [facility]P [Primary Care Provider[facility] -
--- NOTE | 2017-05-10 14:48 | Discharge Summary ---
Date of Encounter: 05/10/17 Time of Encounter: 13:00 - Discharge Diagnosis (1) Chest pain Priority: Primary Status: Chronic Comments: Patient with ongoing chest pain that is only relieved with IV narcotics. Seen and evaluated by cardiology who recommended continued medical management. Imdur dosage was increased. Follow-up outpatient. Qualifiers: Chest pain type: unspecified Qualified Code(s): R07.9 - Chest pain, unspecified (2) Leukocytosis Priority: Primary Status: Acute Comments: neutrophilic. No signs of acute infections- suspect 2/2 stress. Repeated 12 hours later,just prior to discharge and it was trending down. followup outpatient Qualifiers: Leukocytosis type: other Qualified Code(s): D72.828 - Other elevated white blood cell count (3) Drug-seeking behavior Priority: Primary Status: Suspected Comments: Acute on chronic. Patient has been seek at [facility] as well as other institutions around [place]. OARRS report with 21 prescribers from around [place]. Patient asked for his IV pain medication continuously and at time of discharge, he asked if he could get "just one more shot, then just 2 days of pain pills until I can see my pain doctor." (4) CAD (coronary artery disease) Priority: Secondary Status: Chronic Qualifiers: Coronary Disease-Associated Artery/Lesion type: [place] artery [place] vs. transplanted heart: [place] heart Associated angina: with stable angina Qualified Code(s): I25.118 - Atherosclerotic heart disease of [place] coronary artery with other forms of angina pectoris (5) HTN (hypertension) Priority: Secondary Status: Chronic Comments: Hypertensive at times however normotensive on day of discharge. Likely secondary to pain, recommend continued blood pressure checks at home, keeping a log, and following up outpatient. Qualifiers: Hypertension type: essential hypertension Qualified Code(s): I10 - Essential (primary) hypertension (6) DVT prophylaxis Priority: Primary Status: Acute Comments: Subcutaneous heparin while admitted (7) Hyperlipidemia Priority: Secondary Status: Chronic Comments: Lipid panel unremarkable. Recommend continue statin and low-cholesterol diet. Qualifiers: Hyperlipidemia type: mixed hyperlipidemia Qualified Code(s): E78.2 - Mixed hyperlipidemia - Discharge Medications Prescriptions: Cyclobenzaprine [Flexeril] 10 mg PO BID PRN #12 tablet PRN Reason: Muscle Spasm Isosorbide DInitrate [Isosorbide Dinitrate] 60 mg PO DAILY #60 tablet Home Medications: Aspirin [Lo-Dose Aspirin EC] 81 mg PO DAILY 03/20/17 [History] Clopidogrel [Plavix] 75 mg PO DAILY 03/20/17 [History] Diltiazem HCl [Diltiazem 24Hr Cd] 240 mg PO BID 03/20/17 [History] Lisinopril [Zestril] 20 mg PO BID 03/20/17 [History] Metoprolol [Lopressor] 50 mg PO BID 03/20/17 [History] Atorvastatin Calcium [Lipitor] 40 mg PO HS 04/20/17 [History] Lansoprazole [Prevacid] 15 mg PO BIDAC 04/20/17 [History] Albuterol Sulfate [Albuterol Inhaler] 2 puff IH Q6HR PRN 05/10/17 [History] Cyclobenzaprine [Flexeril] 10 mg PO BID PRN #12 tablet 05/10/17 [Rx] Furosemide [Lasix] 20 mg PO DAILY PRN 05/10/17 [History] Isosorbide DInitrate [Isosorbide Dinitrate] 60 mg PO DAILY #60 tablet 05/10/17 [ Rx] Potassium Chloride [K-Tab ER] 20 meq PO DAILY PRN MDD WITH LASIX 05/10/17 [ History] Allergies/Adverse Reactions: Allergies No Known Allergies Allergy (Verified 11/24/16 14:48) Procedures/tests Complete & Pending: Procedures Performed prior 72 hours Category Date Time Status ECG 12 lead ECG [ECG] AM 0600 Y 05/10/17 06:00 Completed EV echocardiogram Routine Y 05/10/17 05:51 Completed Date of admission: 05/10/17 04:23 [facility] care physician: [facility] Consults: 05/10/17 05:05 Consult to [facility] [place] [CONS] Routine Reason for SW Consult: Discharge planning 05/10/17 05:06 Consult to Cardiology [CONS] Routine Comment: Consulting Provider: Cardiology [facility] Reason for Consult: Chest pain, coronary artery disease Call Completed: No Discharging clinician: Prema Chen Anticipated date of discharge: 05/10/17 - Patient Status Disposition: Home, Self-Care Condition: Good Functional capacity at discharge: independent ambulation Overall status at discharge: patient is progressing back to baseline - Discharge Instructions Follow Up With: [facility] [Primary Care Provider] - Cesar Levy DO [Partnered Physician] - Additional Instructions: Follow-up with primary care provider within one to 2 weeks, follow-up with pain management as needed - Diet and Activity Activity: increase activity as tolerated Diet: low fat, low cholesterol, low salt diet Hospital course: Mr. Edwards is a 71 year old male with past medical history of CAD status post stent, hypertension, hyperlipidemia, GERD, former tobacco abuse. Patient presented to the emergency department chief complaint of chest pain that began just prior to arrival. Patient stating he was driving back from [place] when his symptoms began. He described his pain as left-sided chest pain that radiated to his neck associated with nausea and mild diaphoresis. Also endorsing mild shortness of breath that resolved prior to presentation. Patient stating he took 2 nitroglycerin and this improved his symptoms. He described the pain as pressure type and without aggravating factors. Patient stating the pain improved in the emergency department with a nitroglycerin patch. Patient also endorsed a headache after he was given nitroglycerin. He denied shortness of breath, palpitations, abdominal pain, nausea or dizziness. Workup in the emergency department unremarkable other than mildly elevated blood pressure upon presentation. No ischemic changes on EKG. Chest x-ray negative. Patient did have a white count of 20 upon presentation that trended down prior to discharge and was likely secondary to stress as no active signs of infection were uncovered during this admission-urinalysis normal, chest x- ray negative. Patient was admitted to the hospitalist service for further evaluation and management. Records were received from [facility] and reviewed. In summation, patient had a stent to the diagonal branch placed at [facility] in January of this year. He was then seen again in February for chest pain at which time he had a negative stress test. He was seen again for chest pain on 04/14/17 at which time a left heart catheter was performed which revealed a patent stent and mild nonobstructive disease. Patient was again seen on 04/20/17 for chest pain. In review of his chart, patient has been seen at [facility] 3 times since his stent and at [facility] with this being his fourth visit since his stent was placed. During this admission, cardiology was brought on board who recommended continued medical management and felt that further workup on an inpatient basis was not warranted. His Imdur dosage was increased. During this admission, patient continually asked for IV narcotic pain and new down to the minute when his next dose was due. OARRS report checked which revealed 21 different prescribers from around [place]. Patient was informed that he was going to be treated with medical management and set to be discharged at which time he asked for "one last pain shot and then just a couple days of pain pills." He was requesting pain medication due to his chronic back pain. He states that he can no longer receive injections in his back since he was started on Plavix after his stent was placed. He was given a short supply of muscle relaxers as well as an increased dose of Imdur and he was discharged home in stable condition with close outpatient follow-up recommended. 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 Esquivel. Echocardiogram report pending at time of discharge, recommend follow-up outpatient for results. ITS Impressions Chest X-Ray 05/10/17 03:11 IMPRESSION: 1. No acute cardiopulmonary disease. D/ / Sterling Duggan MD / Sterling Duggan MD Interpreting Provider: Sterling Duggan MD Echocardiogram impressions: - Time Spent with Patient Total time spent providing and/or coordinating discharge services: - Constitutional Vitals: Temp Pulse Resp BP Pulse Ox 97.6 F 70 18 163/75 96 05/10/17 11:45 05/10/17 11:45 05/10/17 11:45 05/10/17 11:45 05/10/17 11:45 General appearance: Present: A&O X 3, pleasant, no acute distress, answers questions appropriately - Head Head exam: Present: atraumatic, normocephalic - Eye Eye exam: Present: PERRL, conjuntiva pink, sclera anicteric Pupils: Present: PERRL - Neck Neck exam general surgery: Present: supple, trachea midline. Absent: lymphadenopathy - Respiratory Respiratory exam: Present: CTAB. Absent: accessory muscle use, rales, respiratory distress, rhonchi, wheezes - Cardiovascular Cardiovascular exam: Present: RRR, +S1, +S2. Absent: diastolic murmur, gallop, rubs, systolic murmur - GI/Abdominal GI/Abdominal exam: Present: normal bowel sounds, soft, no peritoneal signs. Absent: distended, tenderness - Extremities Exam Extremities exam: Present: warm, radial pulses palpable and symetrical. Absent : calf tenderness, cyanotic, pedal edema - Back Exam Back exam: Present: muscle spasm, paraspinal tenderness, tenderness - Neurological Exam Neurological exam: Present: alert, CN II-XII intact, oriented X3, no focal deficits, strengths equal and symetr throughout. Absent: pronater drift, facial droop, speech deficit - Skin Skin exam: Present: dry, intact, normal color, warm
[2017-05-10 15:05] LABS: Basophils % 0.1 %; Hematocrit 38.8 % (37.5-50.1); Immature Granulocytes % 0.8 % (0-4); Lymphocytes % 6.5 %; Mean Corpuscular HGB Conc 33.5 g/dL (31.6-35.5); Mean Corpuscular Hemoglobin 28.3 pg (28.0-33.3); Mean Corpuscular Volume 84.5 fL (83.0-100.0); Mean Platelet Volume 9.5 fL (9.4-12.4); Monocytes # 0.9 K/mcL (0.0-1.3); Monocytes % 5.5 %; Platelet Count 220 K/mcL (140-400); Red Blood Count 4.59 M/mcL (4.19-5.50); Red Cell Distribution Width 14.7 % (11.5-14.5); Segmented Neutrophils % 87.1 %
[2017-05-11 03:30] VITALS: BP 114/73
--- NOTE | 2017-05-11 08:46 | Electrocardiograph Report ---
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
--- NOTE | 2017-05-11 08:46 | Electrocardiograph Report ---
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
--- NOTE | 2017-05-11 08:46 | Electrocardiograph Report ---
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
== END 2017-05-10 17:50 | disposition home or self-care (01) ==
LOC: 3BNU 03:05 → EMEROO 03:05 → SUATTDRO 04:23 → 3BNU 05:10
PROVIDERS: ADMIT Family Medicine; ATTEND Nurse Practitioner Family

== ENCOUNTER 2018-04-16 10:50 | Observation (INO) ==
[2018-04-16] MEDS ORDERED: *HR* Morphine 2 MG/ML SYRINGE IVP ONE (11:12)
[2018-04-16] MEDS: Nitroglycerin 0.4 MG TAB.SUBL SL ONE ×2 (11:14→11:22)
[2018-04-16] MEDS ORDERED: Aspirin 81 MG TAB.CHEW PO STA (11:15)
--- NOTE | 2018-04-16 11:15 | Emergency Department Note ---
Disposition Clinical Impression: Chest pain Qualifiers: Chest pain type: unspecified Qualified Code(s): R07.9 - Chest pain, unspecified Chronic back pain Qualifiers: Back pain location: low back pain Back pain laterality: unspecified Sciatica presence: unspecified whether sciatica present Qualified Code(s): M54.5 - Low back pain; G89.29 - Other chronic pain Disposition: Admitted As Inpatient Condition: Fair [facility]errals: [facility],PC[facility] [Primary Care Provider] - Forms: ED Satisfaction Letter Time of Disposition: 13:23 Chest Pain HPI - General Chief Complaint: ED Chest Pain Stated Complaint: Chest pain Time Seen by Provider: 04/16/18 10:58 Source: patient Limitations: no limitations Vital Signs Reviewed: Yes Nursing Notes Reviewed: Yes - History of Present Illness HPI Narrative: Patient is a 72-year-old male with a past medical history of CAD with 3 stents presents to [facility] ED with a chief complaint of chest pain. States this started approximately 2 hours ago while he was driving. It was briefly relieved for about 5 minutes with nitroglycerin tablets. States it then came back. Denies any nausea, vomiting, fever or chills. States he does feel short of breath with this. States his chest pain is sharp stabbing in nature and goes from his substernal region and radiates up into his left neck. States he had been driving for a while when it started and the pain seemed to start in his hips and went into his back and then the chest pain started. States his cardiology care is mainly through the [facility] over in [place]. Pt complaint: chest pain Onset (ago): hour(s) (2) Duration: constant Onset: during rest Pain Location: substernal Severity: moderate Severity scale (1-10): 7 Quality: sharp Pain Radiation: neck Improves with: nitroglycerin Worsens with: nothing Associated symptoms: Reports: dyspnea. Denies: nausea, vomiting, diaphoresis Treatments prior to arrival chest pain: nitroglycerin - Related Data Home Medications Medication Instructions Recorded Confirmed Aspirin [Lo-Dose Aspirin EC] 81 mg PO DAILY 03/20/17 12/14/17 Clopidogrel [Plavix] 75 mg PO DAILY 03/20/17 12/14/17 Diltiazem HCl [Diltiazem 24Hr Cd] 240 mg PO BID 03/20/17 12/14/17 Lisinopril [Zestril] 20 mg PO BID 03/20/17 12/14/17 Metoprolol [Lopressor] 50 mg PO BID 03/20/17 12/14/17 Atorvastatin Calcium [Lipitor] 40 mg PO HS 04/20/17 12/14/17 Lansoprazole [Prevacid] 15 mg PO BIDAC 04/20/17 12/14/17 Albuterol Sulfate [Albuterol 2 puff IH Q6HR PRN 05/10/17 12/14/17 Inhaler] Furosemide [Lasix] 20 mg PO DAILY PRN 05/10/17 12/14/17 Potassium Chloride [K-Tab ER] 20 meq PO DAILY PRN MDD WITH LASIX 05/10/17 Isosorbide MONOnitrate (24 HR) 60 mg PO DAILY 12/15/17 12/15/17 [Imdur] Previous Rx's Medication Instructions Recorded Cyclobenzaprine [Flexeril] 10 mg PO BID PRN #12 tablet 05/10/17 clonazePAM [Klonopin] 0.5 mg PO TID PRN #30 tablet 05/20/17 OxyCODONE/APAP 5/325 [Percocet 1 each PO Q4HR PRN 7 Days #28 12/15/17 5/325 MG] tablet Allergies Allergy/AdvReac Type Severity Reaction Status Date / Time No Known Allergies Allergy Verified 08/06/17 16:51 All systems ED: reviewed and negative except as stated. Chest Pain PMH - Past Medical History Medical history: Reports: coronary artery disease, GERD, hyperlipidemia, hypertension, myocardial infarction Surgical history: Reports: angioplasty/stent, appendectomy Psychiatric history: Reports: no psych history - Social History Smoking Status: Former smoker Alcohol use: Reports: none Drug use: Reports: none Physical Exam - General Limitations: no limitations General appearance: alert, in no apparent distress - Head Head exam: atraumatic, normocephalic, normal inspection - Eye Eye exam: Present: normal appearance, EOMI - ENT ENT exam: normal exam, normal oropharynx, mucous membranes moist - Neck Neck exam: Present: normal inspection, full ROM, trachea midline - Chest Chest inspection: Present: normal inspection, symmetric chest wall rise - Respiratory Respiratory exam: Present: normal lung sounds bilaterally - Cardiovascular Cardiovascular exam: Present: regular rate, normal rhythm, normal heart sounds - Abdominal Exam Abdominal exam: Present: soft, Non-Tender. Absent: tenderness, distention, guarding, rebound, rigidity - Extremities Exam Extremities exam: Present: normal inspection, full ROM. Absent: tenderness, pedal edema - Back Exam Back exam: Present: normal inspection, full ROM, paraspinal tenderness (lumbar) - Neurological Exam Neurological exam: Present: alert - Psychiatric Psychiatric exam: Present: normal affect, normal mood - Skin Skin exam: Present: warm, dry, intact, normal color Course Course Narrative: Patient seen and examined. Chest pain 2 hours, relieved with nitroglycerin briefly. Cardiopulmonary workup ordered. We will give more sublingual nitroglycerin. However when talking with the patient, he states the nitroglycerin we will just make his headache worse. We will go ahead and give 4 mg of morphine. Aspirin also given. We will likely admit for cardiac workup. - Reevaluation(s) Reevaluation #1: Labwork unremarkable. Pain was relieved with morphine. I discussed with the hospitalist for admission for chest pain workup for ACS. Patient has been accepted for admission. Time: 13:23 Vital Signs Temperature 97.7 F 04/16/18 10:55 Pulse Rate 67 04/16/18 10:55 Respiratory Rate 18 04/16/18 10:55 Blood Pressure 173/100 04/16/18 10:55 O2 Sat by Pulse Oximetry 95 04/16/18 10:55 Temperature 97.7 F 04/16/18 10:55 Pulse Rate 71 04/16/18 12:25 Respiratory Rate 21 04/16/18 12:25 Blood Pressure 121/102 04/16/18 12:25 O2 Sat by Pulse Oximetry 96 04/16/18 12:25 Oxygen Delivery Oxygen Delivery Room Air Chest Pain - Medical Records Medical records reviewed: Yes I reviewed the patient's medical records. - Lab Data Lab results reviewed: Yes I reviewed the patient's lab results. Result diagrams: 04/16/18 11:24 04/16/18 11:24 Lab Results 04/16/18 04/16/18 Range/Units 11:24 11:24 WBC 6.4 (4.3-11.1) K/mcL RBC 3.99 L (4.19-5.50) M/mcL Hgb 10.3 L (12.9-16.9) g/dL Hct 32.1 L (37.5-50.1) % MCV 80.5 L (83.0-100.0) fL MCH 25.8 L (28.0-33.3) pg MCHC 32.1 (31.6-35.5) g/dL RDW 17.2 H (11.5-14.5) % Plt Count 210 (140-400) K/mcL MPV 9.6 (9.4-12.4) fL Immature Gran % 0.5 (0-4) % Seg Neutrophils % 60.5 % Lymphocytes % 23.8 % Monocytes % 11.7 % Eosinophils % 3.0 % Basophils % 0.5 % Neutrophils # 3.9 (1.6-8.9) K/mcL Lymphocytes # 1.5 (0.6-4.6) K/mcL Monocytes # 0.8 (0.0-1.3) K/mcL Eosinophils # 0.2 (0.0-0.6) K/mcL Basophils # 0.0 (0.0-0.2) K/mcL Sodium 135 L (136-145) mEq/L Potassium 3.6 (3.5-5.1) mEq/L Chloride 105 (98-107) mEq/L Carbon Dioxide 22 L (23-29) mEq/L BUN 16 (8-23) mg/dL Creatinine 1.25 (0.70-1.30) mg/dL Est GFR ( Amer) > 60 (> 60) Est GFR (Non-Af Amer) 57 L (> 60) BUN/Creatinine Ratio 13 (6-26) Glucose 109 H (70-105) mg/dL Calculated Osmolality 282 (280-300) Calcium 9.1 (8.6-10.3) mg/dL Troponin I < 0.03 (< 0.04) ng/mL - Radiology Data Radiology results reviewed: Yes I reviewed the patient's radiology results. Chest X-Ray 04/16/18 11:04 IMPRESSION: No acute cardiopulmonary disease. D/ / Marco Smith MD / Marco Smith MD Interpreting Provider: Marco Smith MD - EKG Data EKG attestation: Yes I reviewed and interpreted this EKG. EKG results narrative: EKG done at 1055 shows normal sinus rhythm with a rate of [address] elevation or depression. Normal axis. Unchanged from prior EKG done 2017. Heart Score - Score History: Moderately Suspicious EKG: Non Specific repolarisation Disturbance Age: Greater than 65 Risk Factors: Equal/Greater than 3 risk factor or history of atherosclerotic disease Troponin: Less than normal limit HEART Score Total: 6
[2018-04-16 11:31] LABS: Basophils % 0.5 %; Eosinophils # 0.2 K/mcL (0.0-0.6); Hematocrit 32.1 % (37.5-50.1); Hemoglobin 10.3 g/dL (12.9-16.9); Immature Granulocytes % 0.5 % (0-4); Lymphocytes # 1.5 K/mcL (0.6-4.6); Lymphocytes % 23.8 %; Mean Corpuscular HGB Conc 32.1 g/dL (31.6-35.5); Mean Corpuscular Hemoglobin 25.8 pg (28.0-33.3); Mean Corpuscular Volume 80.5 fL (83.0-100.0); Mean Platelet Volume 9.6 fL (9.4-12.4); Monocytes # 0.8 K/mcL (0.0-1.3); Monocytes % 11.7 %; Neutrophils # 3.9 K/mcL (1.6-8.9); Platelet Count 210 K/mcL (140-400); Red Blood Count 3.99 M/mcL (4.19-5.50); Red Cell Distribution Width 17.2 % (11.5-14.5); Segmented Neutrophils % 60.5 %
--- NOTE | 2018-04-16 11:32 | Emergency Department Note ---
Disposition Clinical Impression: Chronic back pain Chest pain Qualifiers: Chest pain type: unspecified Qualified Code(s): R07.9 - Chest pain, unspecified Disposition: Admitted As Inpatient Condition: Fair General Adult HPI - General Chief complaint: ED Chest Pain Stated complaint: Chest pain Time Seen by Provider: 04/16/18 10:58 Source: patient Limitations: no limitations - History of Present Illness Pain Scale: 0 - Related Data Home Medications Medication Instructions Recorded Confirmed Aspirin [Lo-Dose Aspirin EC] 81 mg PO DAILY 03/20/17 04/16/18 Clopidogrel [Plavix] 75 mg PO DAILY 03/20/17 04/16/18 Lisinopril [Zestril] 20 mg PO DAILY 03/20/17 04/16/18 Metoprolol [Lopressor] 50 mg PO QAM 03/20/17 04/16/18 Atorvastatin Calcium [Lipitor] 40 mg PO DAILY 04/20/17 04/16/18 Albuterol Sulfate [Albuterol 1 puff IH Q6HR PRN 05/10/17 04/16/18 Inhaler] Furosemide [Lasix] 20 mg PO DAILY PRN 05/10/17 04/16/18 Finasteride [Proscar] 5 mg PO DAILY 04/16/18 04/16/18 Nitroglycerin [Nitrostat] 0.4 mg SL Q5M PRN 04/16/18 04/16/18 Omeprazole [PriLOSEC] 20 mg PO DAILY 04/16/18 04/16/18 Sennosides/Docusate Sodium 1 tab PO DAILY PRN 04/16/18 04/16/18 [Senna-Docusate Sodium Tablet] cloNIDine HCl [CloNIDine HCl] 0.1 mg PO BID PRN 04/16/18 04/16/18 Previous Rx's Medication Instructions Recorded Cyclobenzaprine [Flexeril] 10 mg PO BID PRN #12 tablet 05/10/17 Allergies Allergy/AdvReac Type Severity Reaction Status Date / Time No Known Allergies Allergy Verified 04/16/18 13:32 Past Medical History - Past Medical History Medical history: Reports: coronary artery disease, GERD, hyperlipidemia, hypertension, myocardial infarction Surgical history: Reports: angioplasty/stent, appendectomy Psychiatric history: Reports: no psych history - Social History Smoking Status: Former smoker Smokeless Tobacco Status: No Alcohol use: Reports: none Drug use: Reports: none Physical Exam - General Limitations: no limitations General appearance: alert, in no apparent distress Course Vital Signs Temperature 97.7 F 04/16/18 10:55 Pulse Rate 67 04/16/18 10:55 Respiratory Rate 18 04/16/18 10:55 Blood Pressure 173/100 04/16/18 10:55 O2 Sat by Pulse Oximetry 95 04/16/18 10:55 Temperature 98.0 F 04/16/18 14:39 Pulse Rate 62 04/16/18 14:39 Respiratory Rate 19 04/16/18 14:39 Blood Pressure 149/89 04/16/18 14:39 O2 Sat by Pulse Oximetry 96 04/16/18 14:39 Oxygen Delivery Oxygen Delivery Room Air Medical Decision Making - Lab Data Result diagrams: 04/16/18 11:24 04/16/18 11:24 Lab Results 04/16/18 04/16/18 Range/Units 11:24 11:24 WBC 6.4 (4.3-11.1) K/mcL RBC 3.99 L (4.19-5.50) M/mcL Hgb 10.3 L (12.9-16.9) g/dL Hct 32.1 L (37.5-50.1) % MCV 80.5 L (83.0-100.0) fL MCH 25.8 L (28.0-33.3) pg MCHC 32.1 (31.6-35.5) g/dL RDW 17.2 H (11.5-14.5) % Plt Count 210 (140-400) K/mcL MPV 9.6 (9.4-12.4) fL Immature Gran % 0.5 (0-4) % Seg Neutrophils % 60.5 % Lymphocytes % 23.8 % Monocytes % 11.7 % Eosinophils % 3.0 % Basophils % 0.5 % Neutrophils # 3.9 (1.6-8.9) K/mcL Lymphocytes # 1.5 (0.6-4.6) K/mcL Monocytes # 0.8 (0.0-1.3) K/mcL Eosinophils # 0.2 (0.0-0.6) K/mcL Basophils # 0.0 (0.0-0.2) K/mcL Sodium 135 L (136-145) mEq/L Potassium 3.6 (3.5-5.1) mEq/L Chloride 105 (98-107) mEq/L Carbon Dioxide 22 L (23-29) mEq/L BUN 16 (8-23) mg/dL Creatinine 1.25 (0.70-1.30) mg/dL Est GFR ( Amer) > 60 (> 60) Est GFR (Non-Af Amer) 57 L (> 60) BUN/Creatinine Ratio 13 (6-26) Glucose 109 H (70-105) mg/dL Calculated Osmolality 282 (280-300) Calcium 9.1 (8.6-10.3) mg/dL Troponin I < 0.03 (< 0.04) ng/mL Attestation Statement - Attestation Attestation: I examined this patient and my medical decision-making was reviewed with the Resident Physician. I agree with the documented findings, disposition and treatment plan as described except to the extent set forth below. [id number] time provided Patient with a known history of coronary artery disease s/p coronary stent placement x 3 presents with chest pain. He is chest pain-free at the time of my evaluation. ECG reviewed by me upon arrival. Patient evaluated in conjunction with the resident physician Dr. Bennett
[2018-04-16 11:56] LABS: BUN/Creatinine Ratio 13 (6-26); Blood Urea Nitrogen 16 mg/dL (8-23); Calcium 9.1 mg/dL (8.6-10.3); Carbon Dioxide 22 mEq/L (23-29); Chloride 105 mEq/L (98-107); Glucose 109 mg/dL (70-105); Osmolality,Calculated 282 (280-300); Potassium 3.6 mEq/L (3.5-5.1); Sodium 135 mEq/L (136-145); eGFR For African Americans > 60 (> 60); eGFR For Non-African Americans 57 (> 60)
[2018-04-16 11:58] LABS: Troponin I < 0.03 ng/mL (< 0.04)
[2018-04-16] MEDS ORDERED: Naloxone 0.4 MG/ML INJ IVP PRN (13:11)
[2018-04-16] MEDS ORDERED: Ondansetron 4 MG/2 ML VIAL IVP PRN (13:11)
[2018-04-16] MEDS ORDERED: Acetaminophen 325 MG TABLET PO PRN (13:11)
[2018-04-16] MEDS ORDERED: traMADol 50 MG TABLET PO PRN (13:11)
[2018-04-16] MEDS ORDERED: Ketorolac 15 MG/ML VIAL IVP PRN (13:11)
[2018-04-16] MEDS ORDERED: clonazePAM 0.5 MG TABLET PO PRN (13:19)
[2018-04-16] MEDS ORDERED: Furosemide 20 MG TABLET PO PRN (13:19)
--- NOTE | 2018-04-16 13:25 | Internal Med History&Physical ---
Date of Encounter: 04/16/18 Time of Encounter: 13:23 Internal Medicine - H&P: HPI Chief complaint: Chest pain Admitted From: Emergency Dept History of present illness: Mr. Edwards is a 72 year old male with a past medical history of CAD status post stents, chronic kidney disease stage III, hypertension and chronic back pain who came to emergency room complaining of chest pain that started around 10 AM we will he was driving, she took nitroglycerin glycerin which improved the pain after 5 minutes, unfortunately the pain came back 10 out of 10 in intensity substernal sharp pressure-like that has decreased down to 3 out of 10 after the administration of morphine at the emergency room. Chest x-rays unremarkable, EKG is normal, the patient had a normal stress test back in December, complaining of headaches with nitroglycerin. Blood pressure was 173/104. Past Med Surg Social Fam HX - Past Medical History Medical history: coronary artery disease (Stents), GERD, hyperlipidemia, hypertension, myocardial infarction, other (Chronic kidney disease of stage III , chronic back pain, seizures 15 years ago, according to prior records he has drug-seeking behavior) Additional medical history: back pain Psychiatric history: no psych history - Past Surgical History Surgical History: angioplasty/stent, appendectomy, other (Right arm surgery) Additional surgical history: heart stents 07/2017 - Social History Smoking Status: Former smoker Smokeless Tobacco Status: No Alcohol use: none Drug use: none - Family History Father Hx Family Cancer: Yes - Additional Family History Additional family history: Father with heart disease Internal Medicine - H&P: Meds Aspirin [Lo-Dose Aspirin EC] 81 mg PO DAILY 03/20/17 [History] Clopidogrel [Plavix] 75 mg PO DAILY 03/20/17 [History] Diltiazem HCl [Diltiazem 24Hr Cd] 240 mg PO BID 03/20/17 [History] Lisinopril [Zestril] 20 mg PO BID 03/20/17 [History] Metoprolol [Lopressor] 50 mg PO BID 03/20/17 [History] Atorvastatin Calcium [Lipitor] 40 mg PO HS 04/20/17 [History] Lansoprazole [Prevacid] 15 mg PO BIDAC 04/20/17 [History] Albuterol Sulfate [Albuterol Inhaler] 2 puff IH Q6HR PRN 05/10/17 [History] Cyclobenzaprine [Flexeril] 10 mg PO BID PRN #12 tablet 05/10/17 [Rx] Furosemide [Lasix] 20 mg PO DAILY PRN 05/10/17 [History] Potassium Chloride [K-Tab ER] 20 meq PO DAILY PRN MDD WITH LASIX 05/10/17 [ History] clonazePAM [Klonopin] 0.5 mg PO TID PRN #30 tablet 05/20/17 [Rx] Isosorbide MONOnitrate (24 HR) [Imdur] 60 mg PO DAILY 12/15/17 [History] OxyCODONE/APAP 5/325 [Percocet 5/325 MG] 1 each PO Q4HR PRN 7 Days #28 tablet [Rx] 3 Allergy/AdvReac Type Severity Reaction Status Date / Time No Known Allergies Allergy Verified 08/06/17 16:51 All Systems PM: A 10-system review of systems was performed and is negative for pertinent findings except as documented above in the HPI. Review of systems: No shortness of breath, other systems out of the 10 reviewed were negative - Constitutional Vitals: Temp Pulse Resp BP Pulse Ox 97.7 F 71 21 121/102 96 04/16/18 10:55 04/16/18 12:25 04/16/18 12:25 04/16/18 12:25 04/16/18 12:25 General appearance: Present: A&O X 3 - Head Head exam: Present: atraumatic, normocephalic - Eye Eye exam: Present: PERRL, conjuntiva pink, sclera anicteric Pupils: Present: PERRL - Neck Neck exam general surgery: Present: supple, trachea midline. Absent: lymphadenopathy - Respiratory Respiratory exam: Present: CTAB. Absent: accessory muscle use, rales, rhonchi, wheezes - Cardiovascular Cardiovascular exam: Present: RRR, +S1, +S2. Absent: diastolic murmur, gallop, rubs, systolic murmur - GI/Abdominal GI/Abdominal exam: Present: normal bowel sounds, soft, no peritoneal signs. Absent: distended, tenderness - Extremities Exam Extremities exam: Present: warm, radial pulses palpable and symmetrical. Absent : calf tenderness, cyanotic, pedal edema - Neurological Exam Neurological exam: Present: CN II-XII intact, oriented X3, no focal deficits. Absent: pronater drift, facial droop, speech deficit - Skin Skin exam: Present: dry, intact Internal Med - H&P Results - Labs CBC & Chem 7: 04/16/18 11:24 04/16/18 11:24 Labs: Short CBC 04/16/18 Range/Units 11:24 WBC 6.4 (4.3-11.1) K/mcL Hgb 10.3 L (12.9-16.9) g/dL Hct 32.1 L (37.5-50.1) % Plt Count 210 (140-400) K/mcL Neutrophils # 3.9 (1.6-8.9) K/mcL BMP 04/16/18 11:24 Sodium 135 L Potassium 3.6 Chloride 105 Carbon Dioxide 22 L BUN 16 Creatinine 1.25 Glucose 109 H Calcium 9.1 Cardiac Enzymes 04/16/18 Range/Units 11:24 Troponin I < 0.03 (< 0.04) ng/mL - Impressions ITS Impressions Chest X-Ray 04/16/18 11:04 IMPRESSION: No acute cardiopulmonary disease. D/ / Marco Smith MD / Marco Smith MD Interpreting Provider: Marco Smith MD - Assessment and plan (1) Chest pain Current Visit: Yes Status: Acute Assessment and plan: Unclear etiology Schedule recheck troponins Continue aspirin, metoprolol, isosorbide, Plavix, atorvastatin Check lipid panel Consider cardiology consult if not improving Omeprazole for GI prophylaxis and Lovenox for DVT prophylaxis. The patient will be admitted for observation. Full code. Time spent on this admission 40 minutes Qualifiers: Chest pain type: unspecified Qualified Code(s): R07.9 - Chest pain, unspecified (2) CAD (coronary artery disease) Current Visit: No Status: Chronic Qualifiers: Coronary Disease-Associated Artery/Lesion type: [place] artery [place] vs. transplanted heart: [place] heart Associated angina: with stable angina Qualified Code(s): I25.118 - Atherosclerotic heart disease of [place] coronary artery with other forms of angina pectoris (3) Chronic back pain Current Visit: No Status: Chronic Qualifiers: Back pain location: thoracic back pain Back pain laterality: midline Qualified Code(s): M54.6 - Pain in thoracic spine; G89.29 - Other chronic pain; G89.29 - Other chronic pain (4) GERD (gastroesophageal reflux disease) Current Visit: No Status: Chronic Qualifiers: Esophagitis presence: without esophagitis Qualified Code(s): K21.9 - Gastro -esophageal reflux disease without esophagitis (5) HTN (hypertension) Current Visit: No Status: Chronic Assessment and plan: Continue lisinopril Hydralazine IV as needed Qualifiers: Hypertension type: essential hypertension Qualified Code(s): I10 - Essential (primary) hypertension (6) Hyperlipidemia Current Visit: No Status: Chronic Qualifiers: Hyperlipidemia type: pure hypercholesterolemia Qualified Code(s): E78.00 - Pure hypercholesterolemia, unspecified; E78.0 - Pure hypercholesterolemia (7) Anemia Current Visit: Yes Status: Acute Assessment and plan: No evidence of active bleeding Recheck CBC in the morning Qualifiers: Anemia type: iron deficiency Qualified Code(s): D50.8 - Other iron deficiency anemias - Time Spent With Patient Total time spent is greater than 50% in coordination of care (as documented) at patient's floor/unit and/or counseling patient:
[2018-04-16] MEDS ORDERED: *HR* Enoxaparin 40 MG/0.4 ML SYRINGE SQ SCH (13:27)
[2018-04-16 14:40] VITALS: BP 149/89
[2018-04-16] MEDS ORDERED: Ketorolac 30 MG/ML VIAL IVP PRN (16:29)
[2018-04-16] MEDS ORDERED: Nitroglycerin 0.4 MG TAB.SUBL SL PRN (16:31)
--- NOTE | 2018-04-16 19:44 | Discharge Summary ---
Orders not resulted at time of discharge: Pending orders 04/16/18 13:29 Fecal Hemoccult [Occult Blood,Stool] [BF] Stat Date of Encounter: 04/16/18 Time of Encounter: 19:38 - Discharge Diagnosis (1) Chest pain Priority: Primary Status: Acute Qualifiers: Chest pain type: unspecified Qualified Code(s): R07.9 - Chest pain, unspecified (2) CAD (coronary artery disease) Priority: Secondary Status: Chronic Qualifiers: Coronary Disease-Associated Artery/Lesion type: [place] artery [place] vs. transplanted heart: [place] heart Associated angina: with stable angina Qualified Code(s): I25.118 - Atherosclerotic heart disease of [place] coronary artery with other forms of angina pectoris (3) Chronic back pain Priority: Secondary Status: Chronic Qualifiers: Back pain location: thoracic back pain Back pain laterality: midline Qualified Code(s): M54.6 - Pain in thoracic spine; G89.29 - Other chronic pain; G89.29 - Other chronic pain (4) GERD (gastroesophageal reflux disease) Priority: Secondary Status: Chronic Qualifiers: Esophagitis presence: without esophagitis Qualified Code(s): K21.9 - Gastro -esophageal reflux disease without esophagitis (5) HTN (hypertension) Priority: Secondary Status: Chronic Qualifiers: Hypertension type: essential hypertension Qualified Code(s): I10 - Essential (primary) hypertension (6) Hyperlipidemia Priority: Secondary Status: Chronic Qualifiers: Hyperlipidemia type: pure hypercholesterolemia Qualified Code(s): E78.00 - Pure hypercholesterolemia, unspecified; E78.0 - Pure hypercholesterolemia (7) Anemia Priority: Secondary Status: Acute Qualifiers: Anemia type: iron deficiency Qualified Code(s): D50.8 - Other iron deficiency anemias Hospital course: Mr. Edwards is a 72 year old male with a past medical history of oronary artery disease (Stents), GERD, hyperlipidemia, hypertension, myocardial infarction, Chronic kidney disease of stage III, chronic back pain, seizures 15 years ago, according to prior records he has drug-seeking behavior who came to emergency room complaining of chest pain that started around 10 AM while he was driving, he took nitroglycerin glycerin which improved the pain after 5 minutes, unfortunately the pain came back 10 out of 10 in intensity substernal sharp pressure-like that has decreased down to 3 out of 10 after the administration of morphine at the emergency room. Chest x-rays was unremarkable, EKG is normal , the patient had a normal stress test back in December, complaining of headaches with nitroglycerin. Blood pressure was 173/104. His hemoglobin was 10.3, there were no signs of bleeding, he was started on omeprazole and she was scheduled to have his hemoglobin rechecked and to consider calling GI if needed. He was admitted in order to have proper monitoring with telemetry and to recheck troponins, also to schedule a limited echocardiogram to evaluate wall motion of the heart. Nurse paged me saying that the patient wanted to leave AGAINST MEDICAL ADVICE and did not want to wait for me to see him again. Apparently he was requesting more opioids as Toradol, tramadol and nitroglycerin were not helping with his pain. Apparently his nurse explained all the risks including . - Time Spent with Patient Total time spent providing and/or coordinating discharge services: Greater than 30 minutes (40 min) - Discharge Medications Home Medications: Aspirin [Lo-Dose Aspirin EC] 81 mg PO DAILY 03/20/17 [History] Clopidogrel [Plavix] 75 mg PO DAILY 03/20/17 [History] Lisinopril [Zestril] 20 mg PO DAILY 03/20/17 [History] Metoprolol [Lopressor] 50 mg PO QAM 03/20/17 [History] Atorvastatin Calcium [Lipitor] 40 mg PO DAILY 04/20/17 [History] Albuterol Sulfate [Albuterol Inhaler] 1 puff IH Q6HR PRN 05/10/17 [History] Cyclobenzaprine [Flexeril] 10 mg PO BID PRN #12 tablet 05/10/17 [Rx] Furosemide [Lasix] 20 mg PO DAILY PRN 05/10/17 [History] Finasteride [Proscar] 5 mg PO DAILY 04/16/18 [History] Nitroglycerin [Nitrostat] 0.4 mg SL Q5M PRN 04/16/18 [History] Omeprazole [PriLOSEC] 20 mg PO DAILY 04/16/18 [History] Sennosides/Docusate Sodium [Senna-Docusate Sodium Tablet] 1 tab PO DAILY PRN 01/29 [History] cloNIDine HCl [CloNIDine HCl] 0.1 mg PO BID PRN 04/16/18 [History] Allergies/Adverse Reactions: 3 Allergy/AdvReac Type Severity Reaction Status Date / Time No Known Allergies Allergy Verified 04/16/18 13:32 Date of admission: 04/16/18 13:24 Primary care physician: PCP [facility] - Constitutional Vitals: Temp Pulse Resp BP Pulse Ox 98.0 F 62 19 149/89 96 04/16/18 14:39 04/16/18 14:39 04/16/18 14:39 04/16/18 14:39 04/16/18 14:39 General appearance: Present: A&O X 3, morbidly obese - Head Head exam: Present: atraumatic, normocephalic - Eye Eye exam: Present: PERRL, conjuntiva pink, sclera anicteric Pupils: Present: PERRL - Neck Neck exam general surgery: Present: supple, trachea midline. Absent: lymphadenopathy - Respiratory Respiratory exam: Present: CTAB. Absent: accessory muscle use, rales, rhonchi, wheezes - Cardiovascular Cardiovascular exam: Present: RRR, +S1, +S2. Absent: diastolic murmur, gallop, rubs, systolic murmur - GI/Abdominal GI/Abdominal exam: Present: normal bowel sounds, soft, no peritoneal signs. Absent: distended, tenderness - Extremities Exam Extremities exam: Present: warm, radial pulses palpable and symmetrical. Absent : calf tenderness, cyanotic, pedal edema - Neurological Exam Neurological exam: Present: CN II-XII intact, oriented X3, no focal deficits. Absent: pronater drift, facial droop, speech deficit - Skin Skin exam: Present: dry, intact - Patient Status Disposition: Left Against Medical Advice Condition: Fair - Discharge Instructions Follow Up With: [facility] [Primary Care Provider] -
[2018-04-16] MEDS ORDERED: Lisinopril 20 MG TABLET PO SCH (21:00)
[2018-04-16] MEDS ORDERED: DILTIAZEM HCL 240 MG PO SCH (21:00)
[2018-04-17] MEDS ORDERED: Aspirin Enteric Coated 81 MG Tablet PO SCH (09:00)
[2018-04-17] MEDS ORDERED: Isosorbide MONOnitrate (24 HR) 60 MG TAB.ER.24H PO SCH (09:00)
[2018-04-17] MEDS ORDERED: Furosemide 20 MG TABLET PO SCH (09:00)
--- NOTE | 2018-04-17 17:34 | Electrocardiograph Report ---
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
== END 2018-04-16 18:15 | disposition left against medical advice (07) ==
LOC: 2ANU 10:50 → EMEROO 10:50 → 2ANU 13:57
PROVIDERS: ADMIT Family Medicine; ATTEND Family Medicine

== ENCOUNTER 2018-05-04 09:11 | Observation (INO) ==
[2018-05-04] MEDS ORDERED: Aspirin 81 MG TAB.CHEW PO ONE (09:14)
--- NOTE | 2018-05-04 09:32 | Emergency Department Note ---
Disposition Clinical Impression: Chest pain Disposition: Admitted As Inpatient [facility]errals: [facility] [Primary Care Provider[facility] - Chest Pain HPI - General Stated Complaint: CP CAMERON Time Seen by Provider: 05/04/18 09:13 Vital Signs Reviewed: Yes Nursing Notes Reviewed: Yes - History of Present Illness HPI Narrative: 72-year-old male presents from home via EMS for evaluation of chest pain. Onset approximately 1.5 hours prior to arrival. Described as a substernal heavy dullness as well as sharp stabbing which radiates interscapular early as well as to his left arm causing left arm weakness. He has associated nausea with dyspnea. Similar in character but not as severe in intensity to prior [place]. He did take 2 sublingual nitroglycerin in route which did mildly help his symptoms which have since rebounded. He also has associated cough. He notes a headache after the sublingual nitroglycerin which is typical for him. PMH: Hypertension, [place] 2, stent 2 most recently approximately 1 year ago. 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 ROS: Positive: As above Negative: Fever, chills, vomiting, palpitations, abdominal pain Severity scale (1-10): 8 - Related Data Home Medications Medication Instructions Recorded Confirmed Aspirin [Lo-Dose Aspirin EC] 81 mg PO DAILY 03/20/17 05/04/18 Clopidogrel [Plavix] 75 mg PO DAILY 03/20/17 05/04/18 Lisinopril [Zestril] 20 mg PO DAILY 03/20/17 05/04/18 Metoprolol [Lopressor] 50 mg PO QAM 03/20/17 05/04/18 Atorvastatin Calcium [Lipitor] 40 mg PO DAILY 04/20/17 05/04/18 Albuterol Sulfate [Albuterol 1 puff IH Q6HR PRN 05/10/17 05/04/18 Inhaler] Furosemide [Lasix] 20 mg PO DAILY PRN 05/10/17 05/04/18 Finasteride [Proscar] 5 mg PO DAILY 04/16/18 05/04/18 Nitroglycerin [Nitrostat] 0.4 mg SL Q5M PRN 04/16/18 05/04/18 Omeprazole [PriLOSEC] 20 mg PO DAILY 04/16/18 05/04/18 Sennosides/Docusate Sodium 1 tab PO DAILY PRN 04/16/18 05/04/18 [Senna-Docusate Sodium Tablet] cloNIDine HCl [CloNIDine HCl] 0.1 mg PO BID PRN 04/16/18 05/04/18 Previous Rx's Medication Instructions Recorded Cyclobenzaprine [Flexeril] 10 mg PO BID PRN #12 tablet 05/10/17 Allergies Allergy/AdvReac Type Severity Reaction Status Date / Time No Known Allergies Allergy Verified 04/16/18 13:32 All systems ED: reviewed and negative except as stated. Review of Systems: As Per HPI Chest Pain PMH - Past Medical History Medical history: Reports: coronary artery disease, GERD, hyperlipidemia, hypertension, myocardial infarction Surgical history: Reports: angioplasty/stent, appendectomy Psychiatric history: Reports: no psych history - Social History Smoking Status: Former smoker Alcohol use: Reports: none Drug use: Reports: none Physical Exam Vital Signs Reviewed General: Patient is alert, oriented, and in moderate distress-he is dyspneic though oxygenating well, holding his chest and wincing and his chest pain. Head: atraumatic, normocephalic Eye: normal appearance, no scleral icterus, no conjunctival injection ENT: mucous membranes moist, normal external ear exam Neck: normal inspection, trachea midline, full ROM Chest: normal inspection, symmetric chest rise Respiratory: Good respiratory effort. Bilateral breath sounds are clear without wheezing, crackles, or rhonchi. Cardiovascular: Regular rate and rhythm. No clicks, rubs, gallops, or murmors. Normal heart sounds. Bilateral radial pulses 2/4 equal. Abdomen: Bowel sounds present normoactive x-4 quadrants. Abdomen is soft, nondistended, and nontender. No guarding or rebound. No organomegaly noted. Musculoskeletal: Spontaneously moving all extremities. Skin: warm, dry, intact. Neuro: Alert and oriented x4. Sensation light touch intact. Psych: Patient's affect is appropriate for situation. - General General appearance: alert Course Course Narrative: EKG dated 05/04/18 at 09:13 interpreted as sinus tachycardia with a rate of 100. ME 156, QRS 122, QTC 405. PVCs. Left axis. Nonspecific ST-T changes. Compared to previous dated 04/16/2018 showing no acute ischemic changes or comparison. History is concerning for ACS. Patient is in agreement to admission for continued evaluation. Once IV access is obtained, we will begin sublingual nitroglycerin and, if needed, nitro drip as long as his blood pressure tolerates it. EKG does not show ST elevated [place]. It is been less than 4-6 hours since onset of symptoms; initial troponin therefore not reliable. Patient's chest pain did improve several nitroglycerin however it did not resolve and is now worsening. Initial troponin is below upper limit of normal however this is within the troponin 10 concern to. Next I discussed the patient with the on-call corporate logistics manager, Dr. Abrams, who recommends beginning a nitroglycerin drip as well as heparin drip. He agrees for admission to hospital so cardiology consult. We will repeat EKG as well as troponin. I discussed the patient with the on-call hospitalist, Dr. Holder, who agrees to accept the patient with cardiology consult. Vital Signs Temperature 96.2 F L 05/04/18 09:14 Pulse Rate 100 05/04/18 09:14 Respiratory Rate 11 05/04/18 09:14 Blood Pressure 173/107 05/04/18 09:14 O2 Sat by Pulse Oximetry 100 05/04/18 09:14 Temperature 97.5 F L 05/04/18 09:56 Pulse Rate 119 05/04/18 10:31 Respiratory Rate 18 05/04/18 10:31 Blood Pressure 145/95 05/04/18 10:31 O2 Sat by Pulse Oximetry 98 05/04/18 10:26 Oxygen Delivery Oxygen Delivery Nasal Cannula Chest Pain - Lab Data Result diagrams: 05/04/18 09:41 05/04/18 09:41 Lab Results 05/04/18 05/04/18 05/04/18 Range/Units 09:41 09:41 09:41 WBC 5.7 (4.3-11.1) K/mcL RBC 4.52 (4.19-5.50) M/mcL Hgb 11.0 L (12.9-16.9) g/dL Hct 35.0 L (37.5-50.1) % MCV 77.4 L (83.0-100.0) fL MCH 24.3 L (28.0-33.3) pg MCHC 31.4 L (31.6-35.5) g/dL RDW 16.5 H (11.5-14.5) % Plt Count 250 (140-400) K/mcL MPV 9.7 (9.4-12.4) fL Immature Gran % 0.2 (0-4) % Seg Neutrophils % 58.4 % Lymphocytes % 24.3 % Monocytes % 13.2 % Eosinophils % 3.2 % Basophils % 0.7 % Neutrophils # 3.3 (1.6-8.9) K/mcL Lymphocytes # 1.4 (0.6-4.6) K/mcL Monocytes # 0.8 (0.0-1.3) K/mcL Eosinophils # 0.2 (0.0-0.6) K/mcL Basophils # 0.0 (0.0-0.2) K/mcL PT 12.6 H (9.4-12.1) Seconds INR 1.2 APTT 36.7 H (26.0-36.0) Seconds Sodium 138 (136-145) mEq/L Potassium 3.3 L (3.5-5.1) mEq/L Chloride 104 (98-107) mEq/L Carbon Dioxide 25 (23-29) mEq/L BUN 11 (8-23) mg/dL Creatinine 1.24 (0.70-1.30) mg/dL Est GFR ( Amer) > 60 (> 60) Est GFR (Non-Af Amer) 57 L (> 60) BUN/Creatinine Ratio 9 (6-26) Glucose 126 H (70-105) mg/dL Calculated Osmolality 287 (280-300) Calcium 10.2 (8.6-10.3) mg/dL Troponin I < 0.03 (< 0.04) ng/mL Heart Score - Score History: Highly Suspicious EKG: Non Specific repolarisation Disturbance Age: Greater than 65 Risk Factors: Equal/Greater than 3 risk factor or history of atherosclerotic disease
[2018-05-04] MEDS ORDERED: *HR* FentaNYL (PF) 100 MCG/2 ML VIAL IVP ONE ×2 (09:39→10:48)
[2018-05-04] MEDS ORDERED: Ondansetron 4 MG/2 ML VIAL IVP ONE (09:39)
[2018-05-04 09:53] LABS: Basophils % 0.7 %; Eosinophils # 0.2 K/mcL (0.0-0.6); Eosinophils % 3.2 %; Immature Granulocytes % 0.2 % (0-4); Lymphocytes # 1.4 K/mcL (0.6-4.6); Lymphocytes % 24.3 %; Mean Corpuscular HGB Conc 31.4 g/dL (31.6-35.5); Mean Corpuscular Hemoglobin 24.3 pg (28.0-33.3); Mean Corpuscular Volume 77.4 fL (83.0-100.0); Mean Platelet Volume 9.7 fL (9.4-12.4); Monocytes # 0.8 K/mcL (0.0-1.3); Monocytes % 13.2 %; Neutrophils # 3.3 K/mcL (1.6-8.9); Platelet Count 250 K/mcL (140-400); Red Blood Count 4.52 M/mcL (4.19-5.50); Red Cell Distribution Width 16.5 % (11.5-14.5); Segmented Neutrophils % 58.4 %
[2018-05-04 10:05] LABS: INR 1.2; Prothrombin Time 12.6 Seconds (9.4-12.1)
[2018-05-04 10:08] LABS: Activated Partial Thrombo Time 36.7 Seconds (26.0-36.0)
[2018-05-04] MEDS ORDERED: Nitroglycerin 0.4 MG TAB.SUBL SL ONE (10:12)
[2018-05-04 10:16] LABS: Troponin I < 0.03 ng/mL (< 0.04)
[2018-05-04 10:18] LABS: BUN/Creatinine Ratio 9 (6-26); Blood Urea Nitrogen 11 mg/dL (8-23); Calcium 10.2 mg/dL (8.6-10.3); Carbon Dioxide 25 mEq/L (23-29); Chloride 104 mEq/L (98-107); Glucose 126 mg/dL (70-105); Osmolality,Calculated 287 (280-300); Potassium 3.3 mEq/L (3.5-5.1); Sodium 138 mEq/L (136-145); eGFR For African Americans > 60 (> 60); eGFR For Non-African Americans 57 (> 60)
--- NOTE | 2018-05-04 10:32 | Emergency Department Note ---
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[place] Time Seen by Provider: 05/04/18 09:13 - History of Present Illness Pain Scale: 5 - Related Data Home Medications Medication Instructions Recorded Confirmed Aspirin [Lo-Dose Aspirin EC] 81 mg PO DAILY 03/20/17 04/16/18 Clopidogrel [Plavix] 75 mg PO DAILY 03/20/17 04/16/18 Lisinopril [Zestril] 20 mg PO DAILY 03/20/17 04/16/18 Metoprolol [Lopressor] 50 mg PO QAM 03/20/17 04/16/18 Atorvastatin Calcium [Lipitor] 40 mg PO DAILY 04/20/17 04/16/18 Albuterol Sulfate [Albuterol 1 puff IH Q6HR PRN 05/10/17 04/16/18 Inhaler] Furosemide [Lasix] 20 mg PO DAILY PRN 05/10/17 04/16/18 Finasteride [Proscar] 5 mg PO DAILY 04/16/18 04/16/18 Nitroglycerin [Nitrostat] 0.4 mg SL Q5M PRN 04/16/18 04/16/18 Omeprazole [PriLOSEC] 20 mg PO DAILY 04/16/18 04/16/18 Sennosides/Docusate Sodium 1 tab PO DAILY PRN 04/16/18 04/16/18 [Senna-Docusate Sodium Tablet] cloNIDine HCl [CloNIDine HCl] 0.1 mg PO BID PRN 04/16/18 04/16/18 Previous Rx's Medication Instructions Recorded Cyclobenzaprine [Flexeril] 10 mg PO BID PRN #12 tablet 05/10/17 Allergies Allergy/AdvReac Type Severity Reaction Status Date / Time No Known Allergies Allergy Verified 04/16/18 13:32 Past Medical History - Past Medical History Medical history: Reports: coronary artery disease, GERD, hyperlipidemia, hypertension, myocardial infarction Surgical history: Reports: angioplasty/stent, appendectomy Psychiatric history: Reports: no psych history - Social History Smoking Status: Former smoker Smokeless Tobacco Status: No Alcohol use: Reports: none Drug use: Reports: none Physical Exam - General General appearance: alert Course Vital Signs Temperature 96.2 F L 05/04/18 09:14 Pulse Rate 100 05/04/18 09:14 Respiratory Rate 11 05/04/18 09:14 Blood Pressure 173/107 05/04/18 09:14 O2 Sat by Pulse Oximetry 100 05/04/18 09:14 Temperature 97.5 F L 05/04/18 09:56 Pulse Rate 92 05/04/18 10:21 Respiratory Rate 20 05/04/18 10:26 Blood Pressure 141/95 05/04/18 10:26 O2 Sat by Pulse Oximetry 98 05/04/18 10:26 Oxygen Delivery Oxygen Delivery Nasal Cannula Medical Decision Making - Lab Data Result diagrams: 05/04/18 09:41 05/04/18 09:41 Lab Results 05/04/18 05/04/18 05/04/18 Range/Units 09:41 09:41 09:41 WBC 5.7 (4.3-11.1) K/mcL RBC 4.52 (4.19-5.50) M/mcL Hgb 11.0 L (12.9-16.9) g/dL Hct 35.0 L (37.5-50.1) % MCV 77.4 L (83.0-100.0) fL MCH 24.3 L (28.0-33.3) pg MCHC 31.4 L (31.6-35.5) g/dL RDW 16.5 H (11.5-14.5) % Plt Count 250 (140-400) K/mcL MPV 9.7 (9.4-12.4) fL Immature Gran % 0.2 (0-4) % Seg Neutrophils % 58.4 % Lymphocytes % 24.3 % Monocytes % 13.2 % Eosinophils % 3.2 % Basophils % 0.7 % Neutrophils # 3.3 (1.6-8.9) K/mcL Lymphocytes # 1.4 (0.6-4.6) K/mcL Monocytes # 0.8 (0.0-1.3) K/mcL Eosinophils # 0.2 (0.0-0.6) K/mcL Basophils # 0.0 (0.0-0.2) K/mcL PT 12.6 H (9.4-12.1) Seconds INR 1.2 APTT 36.7 H (26.0-36.0) Seconds Sodium 138 (136-145) mEq/L Potassium 3.3 L (3.5-5.1) mEq/L Chloride 104 (98-107) mEq/L Carbon Dioxide 25 (23-29) mEq/L BUN 11 (8-23) mg/dL Creatinine 1.24 (0.70-1.30) mg/dL Est GFR ( Amer) > 60 (> 60) Est GFR (Non-Af Amer) 57 L (> 60) BUN/Creatinine Ratio 9 (6-26) Glucose 126 H (70-105) mg/dL Calculated Osmolality 287 (280-300) Calcium 10.2 (8.6-10.3) mg/dL Troponin I < 0.03 (< 0.04) ng/mL Attestation Statement - Attestation Attestation: I examined this patient and my medical decision-making was reviewed with the Resident Physician. I agree with the documented findings, disposition and treatment plan as described except to the extent set forth below. 72 year old male presnte to the eD with complaints of chest pain for the past two hours and has a history of two cardiac stents. PAtient states that feels simliar to his cardiac pains back then but is not as severe. WE have given him aSA and nitro and have decreased his blood pressure. PAtinet is still having pain, we ethan ltreat with fnatyl although I think he may need nitro drip and heparin therapy . So we will consult with cardiolgoy before doing so and then admit to medicine.
[2018-05-04] MEDS ORDERED: *HR* Labetalol 20 MG/4 ML SYRINGE IVP ONE (10:48)
[2018-05-04] MEDS ORDERED: Nitroglycerin 25 MG/250 ML INFUS..BTL IVC SCH (11:15)
[2018-05-04] MEDS ORDERED: *HR* Heparin 5,000 UNIT/ML VIAL IVP ONE (11:16)
[2018-05-04] MEDS ORDERED: *HR* Heparin 5,000 UNIT/ML VIAL IVP PRN ×2 (11:16)
[2018-05-04] MEDS ORDERED: Heparin 25,000 UNIT/500 ML D5W 25,000 UNIT/500 ML BAG IVC SCH ×2 (11:30→12:30)
[2018-05-04] MEDS ORDERED: Naloxone 0.4 MG/ML INJ IVP PRN (12:17)
[2018-05-04] MEDS ORDERED: cloNIDine HCl 0.1 MG TABLET PO PRN (12:20)
[2018-05-04] MEDS ORDERED: Sennosides/Docusate Sodium TABLET PO PRN (12:20)
[2018-05-04] MEDS ORDERED: Furosemide 20 MG TABLET PO PRN (12:20)
[2018-05-04] MEDS ORDERED: Nitroglycerin 0.4 MG TAB.SUBL SL PRN (12:20)
--- NOTE | 2018-05-04 12:28 | Internal Med History&Physical ---
Date of Encounter: 05/04/18 Time of Encounter: 12:30 Internal Medicine - H&P: HPI Chief complaint: chest pain Admitted From: Home Plans for Post Hospital Care: Home History of present illness: Mr. Edwards is a 72 year old male with past medical history of coronary artery disease with 2 stents placed at approximately a year ago presented to the emergency department with chest pain. Substernal chest pain 10/10. Associated with nausea and vomiting, and some shortness of breath. Pain was radiating to the left arm. Stated that similar in character to what happened to him when he had his prior CT. Patient did take 2 sublingual nitroglycerin glycerin and his pain improved. He had some headaches from the nitroglycerin which is typical for him. Denied any blurry vision no abdominal pain or changes in bowel movement. Past Med Surg Social Fam HX - Past Medical History Medical history: coronary artery disease, GERD, hyperlipidemia, hypertension, myocardial infarction Additional medical history: back pain Psychiatric history: no psych history - Past Surgical History Surgical History: angioplasty/stent, appendectomy Additional surgical history: heart stents 07/2017,2015. loop recorder - Social History Smoking Status: Former smoker Smokeless Tobacco Status: No Alcohol use: none Drug use: none - Family History Father Hx Family Cancer: Yes Internal Medicine - H&P: Meds Aspirin [Lo-Dose Aspirin EC] 81 mg PO DAILY 03/20/17 [History] Clopidogrel [Plavix] 75 mg PO DAILY 03/20/17 [History] Lisinopril [Zestril] 20 mg PO DAILY 03/20/17 [History] Metoprolol [Lopressor] 50 mg PO QAM 03/20/17 [History] Atorvastatin Calcium [Lipitor] 40 mg PO DAILY 04/20/17 [History] Albuterol Sulfate [Albuterol Inhaler] 1 puff IH Q6HR PRN 05/10/17 [History] Cyclobenzaprine [Flexeril] 10 mg PO BID PRN #12 tablet 05/10/17 [Rx] Furosemide [Lasix] 20 mg PO DAILY PRN 05/10/17 [History] Finasteride [Proscar] 5 mg PO DAILY 04/16/18 [History] Nitroglycerin [Nitrostat] 0.4 mg SL Q5M PRN 04/16/18 [History] Omeprazole [PriLOSEC] 20 mg PO DAILY 04/16/18 [History] Sennosides/Docusate Sodium [Senna-Docusate Sodium Tablet] 1 tab PO DAILY PRN 01/29 [History] cloNIDine HCl [CloNIDine HCl] 0.1 mg PO BID PRN 04/16/18 [History] 3 Allergy/AdvReac Type Severity Reaction Status Date / Time No Known Allergies Allergy Verified 04/16/18 13:32 All Systems PM: A 10-system review of systems was performed and is negative for pertinent findings except as documented above in the HPI. Review of systems: Comprehensive 10 point review of system was done and it was negative other than what was mentioned above - Constitutional Vitals: Temp Pulse Resp BP Pulse Ox 97.5 F L 119 8 145/95 98 05/04/18 09:56 05/04/18 10:31 05/04/18 11:37 05/04/18 11:37 05/04/18 10:26 - Head Head exam: Present: atraumatic, normocephalic - Eye Eye exam: Present: PERRL, conjuntiva pink, sclera anicteric Pupils: Present: PERRL - Neck Neck exam general surgery: Present: supple, trachea midline. Absent: lymphadenopathy - Respiratory Respiratory exam: Present: CTAB. Absent: accessory muscle use, rales, rhonchi, wheezes - Cardiovascular Cardiovascular exam: Present: RRR, +S1, +S2. Absent: diastolic murmur, gallop, rubs, systolic murmur - GI/Abdominal GI/Abdominal exam: Present: normal bowel sounds, soft, no peritoneal signs. Absent: distended, tenderness - Extremities Exam Extremities exam: Present: warm, radial pulses palpable and symmetrical. Absent : calf tenderness, cyanotic, pedal edema - Neurological Exam Neurological exam: Present: CN II-XII intact, oriented X3, no focal deficits. Absent: pronater drift, facial droop, speech deficit - Skin Skin exam: Present: dry, intact Internal Med - H&P Results - Labs CBC & Chem 7: 05/04/18 09:41 05/04/18 09:41 - Assessment and plan (1) Chest pain Current Visit: Yes Status: Acute Assessment and plan: Mostly acute coronary syndrome Patient will be started on heparin drip ACS protocol Aspirin, metoprolol, statin, nitrates when necessary Serial troponin every 6 hours for 3 sets Cardiology consult, already contacted from the emergency department Monitor vital signs Qualifiers: Qualified Code(s): R07.9 - Chest pain, unspecified (2) Chest pain Current Visit: No Status: Acute Qualifiers: Chest pain type: unspecified Qualified Code(s): R07.9 - Chest pain, unspecified (3) Unstable angina Current Visit: Yes Status: Acute Assessment and plan: Plan as above (4) Hypokalemia Current Visit: Yes Status: Acute Assessment and plan: Mild hypokalemia with potassium 3.3 -Replaced Monitor and replace electrolytes as needed (5) CAD (coronary artery disease) Current Visit: No Status: Chronic Qualifiers: Coronary Disease-Associated Artery/Lesion type: [place] artery [place] vs. transplanted heart: [place] heart Associated angina: with stable angina Qualified Code(s): I25.118 - Atherosclerotic heart disease of [place] coronary artery with other forms of angina pectoris (6) HTN (hypertension) Current Visit: No Status: Chronic Qualifiers: Hypertension type: essential hypertension Qualified Code(s): I10 - Essential (primary) hypertension (7) Hyperlipidemia Current Visit: No Status: Chronic Qualifiers: Hyperlipidemia type: pure hypercholesterolemia Qualified Code(s): E78.00 - Pure hypercholesterolemia, unspecified; E78.0 - Pure hypercholesterolemia (8) On esomeprazole prophylaxis Current Visit: Yes Status: Acute (9) DVT prophylaxis Current Visit: Yes Status: Acute Assessment and plan: Already started on heparin drip - Time Spent With Patient Total time spent is greater than 50% in coordination of care (as documented) at patient's floor/unit and/or counseling patient:
[2018-05-04] MEDS ORDERED: 0.9 % Sodium Chloride 1,000 ML IVC SCH (12:30)
[2018-05-04] MEDS ORDERED: traMADol 50 MG TABLET PO PRN (12:57)
[2018-05-04 13:24] LABS: Hematocrit 36.4 % (37.5-50.1); Hemoglobin 11.5 g/dL (12.9-16.9); Mean Corpuscular HGB Conc 31.6 g/dL (31.6-35.5); Mean Corpuscular Hemoglobin 24.6 pg (28.0-33.3); Mean Corpuscular Volume 77.9 fL (83.0-100.0); Mean Platelet Volume 9.9 fL (9.4-12.4); Platelet Count 257 K/mcL (140-400); Red Blood Count 4.67 M/mcL (4.19-5.50); Red Cell Distribution Width 16.7 % (11.5-14.5)
--- NOTE | 2018-05-04 13:57 | Cardiology Consult Note ---
Date of Encounter: 05/04/18 Time of Encounter: 13:54 Assessment and Plan (1) Chest pain Current Visit: Yes Status: Acute - Acute on chronic on medical therapy, possibly multifactorial - Pain on rest and partially reproducible. Relieved with NTG and reports exertional component. - Recent cardiac workup including Echo showed ejection fraction of 60% otherwise normal with mild diastolic dysfunction. Stress test on 12/16/17 which was negative for ischemia or infarct. Left heart catheterization at [facility] with 1 stent placed to diagonal branch on 01/2017, repeat left heart catheterization on 04/14/17 showed patent stent with no additional occlusions. - Patient continues to have symptoms despite medical management. Plan - Continue BB, statin, ASA, NTG PRN, ACEi - Heparin gtt, add imdur - Plan for LHC tomorrow after 24 hours of heparin. NPO midnight. Further plan discussed with Dr. Abrams Qualifiers: Chest pain type: unspecified Qualified Code(s): R07.9 - Chest pain, unspecified (2) CAD (coronary artery disease) Current Visit: Yes Status: Chronic As above Qualifiers: Coronary Disease-Associated Artery/Lesion type: [place] artery [place] vs. transplanted heart: [place] heart Associated angina: with stable angina Qualified Code(s): I25.118 - Atherosclerotic heart disease of [place] coronary artery with other forms of angina pectoris (3) HTN (hypertension) Current Visit: Yes Status: Chronic Mildly elevated however may also require NTG gtt Qualifiers: Hypertension type: essential hypertension Qualified Code(s): I10 - Essential (primary) hypertension (4) Hyperlipidemia Current Visit: Yes Status: Chronic continue statin Qualifiers: Hyperlipidemia type: pure hypercholesterolemia Qualified Code(s): E78.00 - Pure hypercholesterolemia, unspecified; E78.0 - Pure hypercholesterolemia (5) Acute coronary syndrome Current Visit: Yes Status: Suspected Suspect unstable angina as above. (6) Hypokalemia Current Visit: Yes Status: Acute K of 3.3 Will give 40 mEq and recommend goal of 4-5 per primary team Discussion w patient/family: The assessment and plan as outlined above was discussed with the patient and/or family members who expressed understanding and agreement. All questions were answered. Thank you for involving us in the care of your patient. Please call with any questions. History of Present Illness Consult date: 05/04/18 Requesting physician: Mario Banerjee Consult reason: Chest pain Chief complaint: Chest pain History of present illness: Mr. Edwards is a 72 year old male with past medical history of hypertension, hyperlipidemia, CAD status post stent in 2017. Presents to emergency room with complaint of chest pain starting this morning. He states that he was driving on his way to [place] when he begins to experience sudden onset, sharp left- sided chest pain with radiation to his left arm and left neck. He states he has had these symptoms the past and had its previous left heart catheter however he notes that this episode is not as severe as it was then. He states that exacerbating factors include deep breaths and coughing but is partially relieved by nitroglycerin. He did take 2 doses of his own on his way to the emergency department. Denies any symptoms of fevers, chills, lower extremity swelling but does admit to mild nausea as well as shortness of breath during these episodes. Previous cardiac workup includes left heart catheterization done at [facility] in January 2017 with 1 drug-eluting stent placed to diagonal branch as well as a repeat left heart catheter on 04/14/17 again at [facility] for persistent chest pain which showed a patent stent with no additional blockages. He did have a stress test on 12/16/17 which was negative for infarct or ischemia. Echocardiogram most recent on 05/13/18 which showed an ejection fraction of 60% and no wall motion abnormalities. In the emergency department, patient was started on heparin drip as well as nitroglycerin sublingually which he states did help relieve his pain. Currently turning time of interview, patient says that his pain is markedly improved. At this time his only complaints are intermittent bouts of chest discomfort, shortness of breath, "borderline nausea "as well as bilateral hip pain. Past Med Surg Social Fam HX - Past Medical History Medical history: coronary artery disease, GERD, hyperlipidemia, hypertension, myocardial infarction Additional medical history: back pain Psychiatric history: no psych history - Past Surgical History Surgical History: angioplasty/stent, appendectomy Additional surgical history: heart stents 07/2017,2015. loop recorder - Social History Smoking Status: Former smoker Smokeless Tobacco Status: No Alcohol use: none Drug use: none - Family History Father Hx Family Cancer: Yes Medications and Allergies Aspirin [Lo-Dose Aspirin EC] 81 mg PO DAILY 03/20/17 [History] Clopidogrel [Plavix] 75 mg PO DAILY 03/20/17 [History] Lisinopril [Zestril] 20 mg PO DAILY 03/20/17 [History] Metoprolol [Lopressor] 50 mg PO QAM 03/20/17 [History] Atorvastatin Calcium [Lipitor] 40 mg PO DAILY 04/20/17 [History] Albuterol Sulfate [Albuterol Inhaler] 1 puff IH Q6HR PRN 05/10/17 [History] Cyclobenzaprine [Flexeril] 10 mg PO BID PRN #12 tablet 05/10/17 [Rx] Furosemide [Lasix] 20 mg PO DAILY PRN 05/10/17 [History] Finasteride [Proscar] 5 mg PO DAILY 04/16/18 [History] Nitroglycerin [Nitrostat] 0.4 mg SL Q5M PRN 04/16/18 [History] Omeprazole [PriLOSEC] 20 mg PO DAILY 04/16/18 [History] Sennosides/Docusate Sodium [Senna-Docusate Sodium Tablet] 1 tab PO DAILY PRN 01/29 [History] cloNIDine HCl [CloNIDine HCl] 0.1 mg PO BID PRN 04/16/18 [History] 3 Allergy/AdvReac Type Severity Reaction Status Date / Time No Known Allergies Allergy Verified 04/16/18 13:32 All Systems Review: The remainder of the systems were reviewed and are negative - Constitutional Constitutional: no chills, no fatigue, no fever(s) - Cardiovascular Cardiovascular: chest pain at rest, dyspnea at rest, radiating jaw, neck or arm pain, no chest pain with exertion, no claudication, no dyspnea on exertion, no leg edema, no lightheadedness, no orthopnea, no palpitations, no syncope - Respiratory Respiratory: cough, dyspnea, no wheezing - Gastrointestinal Gastrointestinal: nausea - Musculoskeletal Musculoskeletal: arthralgias Physical Examination Vital Signs, Last 4 Hours Temp Pulse Resp BP Pulse Ox 05/04/18 13:05 92 05/04/18 12:38 97.9 F 72 15 153/81 92 05/04/18 11:37 8 145/95 General: Conversant, No Apparent Distress, Other (mildly uncomfortable due to hip pain, anxious) HEENT: Atraumatic, Normocephaly, Mucus Membranes Moist Neck: No JVD, Normal carotid pulses Cardiac: Reg Rate and Rhythm, Normal S1 and S2, No Murmur, Other (frequent PVCs) Lungs: Normal Breath Sounds Neuro: Alert and responsive, No focal deficits noted Abdomen: Soft, Non-Tender Skin: No rashes noted on visualized skin Musculoskeletal: Other (Reproducible chest pain, however states it is different pain) Extremities: No Clubbing, No Cyanosis, No Edema, Normal Pulses Results 05/04/18 12:27 05/04/18 09:41 Lab Results 05/04/18 05/04/18 12:27 12:27 WBC 5.8 Hgb 11.5 L Hct 36.4 L Plt Count 257 Troponin I < 0.03 Consult Discharge Plan - Plan [facility]errals: [facility] [Primary Care Provider] -
[2018-05-04] MEDS ORDERED: Ondansetron 4 MG/2 ML VIAL IVP PRN (14:20)
[2018-05-04] MEDS ORDERED: *HR* Morphine 2 MG/ML SYRINGE IVP PRN (14:35)
[2018-05-04] MEDS: *HR* HYDROcodone/Acet 5/325 mg TABLET PO PRN ×2 (15:35→20:17)
--- NOTE | 2018-05-04 17:28 | Electrocardiograph Report ---
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
--- NOTE | 2018-05-04 17:40 | Electrocardiograph Report ---
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
[2018-05-04 18:38] LABS: INR 1.2; Prothrombin Time 12.9 Seconds (9.4-12.1)
[2018-05-04 18:45] LABS: Activated Partial Thrombo Time 75.1 Seconds (26.0-36.0)
[2018-05-04] MEDS: 0.9 % Sodium Chloride 1,000 ML IVC SCH (20:22)
[2018-05-05] MEDS ORDERED: *HR* FentaNYL (PF) 100 MCG/2 ML VIAL IVP ONE (00:51)
[2018-05-05 01:12] LABS: Basophils % 0.6 %; Eosinophils # 0.2 K/mcL (0.0-0.6); Eosinophils % 4.1 %; Hematocrit 31.6 % (37.5-50.1); Hemoglobin 9.8 g/dL (12.9-16.9); Immature Granulocytes % 0.2 % (0-4); Lymphocytes # 1.4 K/mcL (0.6-4.6); Mean Corpuscular Hemoglobin 24.3 pg (28.0-33.3); Mean Corpuscular Volume 78.4 fL (83.0-100.0); Mean Platelet Volume 9.8 fL (9.4-12.4); Monocytes # 0.7 K/mcL (0.0-1.3); Monocytes % 12.1 %; Neutrophils # 3.1 K/mcL (1.6-8.9); Platelet Count 219 K/mcL (140-400); Red Blood Count 4.03 M/mcL (4.19-5.50); Red Cell Distribution Width 16.8 % (11.5-14.5)
[2018-05-05 01:39] LABS: BUN/Creatinine Ratio 10 (6-26); Blood Urea Nitrogen 12 mg/dL (8-23); Calcium 9.7 mg/dL (8.6-10.3); Carbon Dioxide 23 mEq/L (23-29); Chloride 105 mEq/L (98-107); Chol/HDL Ratio 2.8 (0-4.9); Cholesterol 98 mg/dL (< 200); Glucose 123 mg/dL (70-105); HDL Cholesterol 35 mg/dL (40-59); LDL Cholesterol,Calculated 46 mg/dL (0-99); Osmolality,Calculated 283 (280-300); Potassium 4.1 mEq/L (3.5-5.1); Sodium 136 mEq/L (136-145); Triglycerides 86 mg/dL (< 150); eGFR For African Americans > 60 (> 60); eGFR For Non-African Americans > 60 (> 60)
[2018-05-05] MEDS: *HR* HYDROcodone/Acet 5/325 mg TABLET PO PRN ×2 (04:38→08:57)
[2018-05-05] MEDS: Isosorbide MONOnitrate (24 HR) 30 MG TAB.ER.24H PO SCH ×2 (06:57→08:57)
[2018-05-05] MEDS ORDERED: Aspirin Enteric Coated 81 MG Tablet PO SCH (09:00)
[2018-05-05] MEDS ORDERED: Lisinopril 20 MG TABLET PO SCH (09:00)
[2018-05-05] MEDS ORDERED: Finasteride 5 MG TABLET PO SCH (09:00)
--- NOTE | 2018-05-05 11:04 | Event Note ---
Date of Encounter: 05/05/18 Time of Encounter: 11:02 Known history of CAD, prior PCI in 2017. Recurrent admissions for chest discomfort over the last several months. Stress test negative and fibroid 2018. TTE earlier this month demonstrated normal LV function. Returns to the hospital with ongoing episodes of chest discomfort. Despite medical therapy, describes chest discomfort again last night. Given recurrent chest discomfort despite negative stress test and medical therapy, we discussed the risks, benefits, and alternatives to cardiac catheterization. Patient understands and wishes to proceed. Further recommendations to follow. Thanks, Mendez Abrams DO, FACC
--- NOTE | 2018-05-05 11:21 | Discharge Summary ---
Orders not resulted at time of discharge: Pending orders 05/04/18 15:24 CL Cardiac Catheterization [CL] Routine 05/06/18 01:00 PTT [Activated Partial Thrombo Time] [COAG] Timed Date of Encounter: 05/05/18 Time of Encounter: 11:19 - Discharge Diagnosis (1) Chest pain Priority: Primary Status: Acute Qualifiers: Chest pain type: unspecified Qualified Code(s): R07.9 - Chest pain, unspecified (2) CAD (coronary artery disease) Priority: Secondary Status: Chronic Qualifiers: Coronary Disease-Associated Artery/Lesion type: [place] artery [place] vs. transplanted heart: [place] heart Associated angina: with stable angina Qualified Code(s): I25.118 - Atherosclerotic heart disease of [place] coronary artery with other forms of angina pectoris (3) Acute hypokalemia Priority: Secondary Status: Acute (4) Neck pain Priority: Secondary Status: Chronic (5) Anemia Priority: Secondary Status: Chronic Qualifiers: Anemia type: unspecified type Qualified Code(s): D64.9 - Anemia, unspecified Hospital course: Mr. Edwards is a 72 year old male. Shortly before this hospitalization he experienced the left-sided anterior chest pain with radiation to the left shoulder, when driving his car. Sublingual nitroglycerin helped some. The pain subsided in the emergency room. Cardiology was consulted. They feel that he is chest pain is of noncardiac origin. The patient has underlying coronary artery disease. His stress test from December 2017 was negative for ischemia. His last transthoracic echo was done earlier this month. It showed normal findings. The patient had PCI in January 2017. He does experience neck pain at times. I feel that he is chest pain was caused by cervical radiculopathy.I advised him to try Tylenol with or without ibuprofen when having more chest pain. He will also be taking Imdur and when necessary nitroglycerin sublingually. He is good today. He is pain-free. His breathing is fine. He is going home. Discharge discussed with: patient - Time Spent with Patient Total time spent providing and/or coordinating discharge services: Less than 30 minutes - Discharge Medications Prescriptions: Isosorbide MONOnitrate (24 HR) [Imdur] 60 mg PO DAILY #30 tab.er.24h Home Medications: Aspirin [Lo-Dose Aspirin EC] 81 mg PO DAILY 03/20/17 [History] Clopidogrel [Plavix] 75 mg PO DAILY 03/20/17 [History] Lisinopril [Zestril] 20 mg PO DAILY 03/20/17 [History] Metoprolol [Lopressor] 50 mg PO QAM 03/20/17 [History] Atorvastatin Calcium [Lipitor] 40 mg PO DAILY 04/20/17 [History] Albuterol Sulfate [Albuterol Inhaler] 1 puff IH Q6HR PRN 05/10/17 [History] Cyclobenzaprine [Flexeril] 10 mg PO BID PRN #12 tablet 05/10/17 [Rx] Furosemide [Lasix] 20 mg PO DAILY PRN 05/10/17 [History] Finasteride [Proscar] 5 mg PO DAILY 04/16/18 [History] Nitroglycerin [Nitrostat] 0.4 mg SL Q5M PRN 04/16/18 [History] Omeprazole [PriLOSEC] 20 mg PO DAILY 04/16/18 [History] Sennosides/Docusate Sodium [Senna-Docusate Sodium Tablet] 1 tab PO DAILY PRN 01/29 [History] cloNIDine HCl [CloNIDine HCl] 0.1 mg PO BID PRN 04/16/18 [History] Isosorbide MONOnitrate (24 HR) [Imdur] 60 mg PO DAILY #30 tab.er.24h 05/05/18 [ Rx] Allergies/Adverse Reactions: 3 Allergy/AdvReac Type Severity Reaction Status Date / Time No Known Allergies Allergy Verified 04/16/18 13:32 Date of admission: 05/04/18 11:25 [facility] care physician: [facility] Consults: 05/04/18 12:19 Consult to Physician [CONS] Routine Consulting Provider: Mendez Abrams Reason for Consult: ACS Call Completed: Yes Discharging clinician: Raza Rosario Anticipated date of discharge: 05/05/18 - Constitutional Vitals: Temp Pulse Resp BP Pulse Ox 97.5 F L 93 18 159/83 98 05/05/18 08:03 05/05/18 08:03 05/05/18 08:03 05/05/18 08:03 05/05/18 08:03 General appearance: Present: pleasant, no acute distress, answers questions appropriately - Respiratory Respiratory exam: Present: CTAB. Absent: accessory muscle use, rales, rhonchi, wheezes - Cardiovascular Cardiovascular exam: Present: RRR, +S1, +S2. Absent: diastolic murmur, gallop, rubs, systolic murmur - GI/Abdominal GI/Abdominal exam: Present: normal bowel sounds, soft, no peritoneal signs. Absent: distended, tenderness - Patient Status Disposition: Home, Self-Care Condition: Good Functional capacity at discharge: independent ambulation Overall status at discharge: patient is back to baseline - Discharge Instructions Instructions: Isosorbide Mononitrate (By mouth), Chest Pain (DC) Follow Up With: [facility] [Primary Care Provider] - (office will call patient with a hospital follow up date and time) Forms: ED Satisfaction Letter - Diet and Activity Activity: resume usual activities as tolerated - VTE Deep Vein Thrombosis/Pulmonary Embolism Present on Admission: No
[2018-05-05 11:42] VITALS: BP 137/83
[2018-05-05] MEDS: 0.9 % Sodium Chloride 1,000 ML IVC SCH (11:43)
--- NOTE | 2018-05-05 12:34 | Event Note ---
Date of Encounter: 05/05/18 Time of Encounter: 12:32 We noticed patient's name fell off of our rounding list. Discharge summary draft in progress. Called floor. Patient's previous nurse states patient decided not to have heart catheterization and has been discharged.
== END 2018-05-05 12:21 | disposition home or self-care (01) ==
LOC: EMEROO 09:11 → 2ANU 09:11 → SUATTDRO 11:25 → 2ANU 12:10
PROVIDERS: ADMIT Internal Medicine; ATTEND Internal Medicine

== ENCOUNTER 2018-08-26 23:23 | Observation (INO) ==
[2018-08-26] MEDS ORDERED: Aspirin 325 MG TABLET PO ONE (23:36)
[2018-08-26] MEDS ORDERED: 0.9 % Sodium Chloride 500 ML IVC ONE (23:37)
--- NOTE | 2018-08-26 23:40 | Emergency Department Note ---
Disposition Clinical Impression: Chest pain Qualifiers: Chest pain type: unspecified Qualified Code(s): R07.9 - Chest pain, unspecified Anemia Qualifiers: Anemia type: unspecified type Qualified Code(s): D64.9 - Anemia, unspecified Disposition: Admitted As Inpatient Condition: Fair [facility]errals: [facility] [Primary Care Provider] - Time of Disposition: 01:32 Chest Pain HPI - General Stated Complaint: Chest Pain Time Seen by Provider: 08/26/18 23:31 Source: patient Mode of arrival: wheelchair Limitations: no limitations Vital Signs Reviewed: Yes Nursing Notes Reviewed: Yes - History of Present Illness HPI Narrative: 73-year-old male with history of CAD status post 3 stents, hypertension, diabetes since for evaluation of chest pain. Patient states he has had nonexertional chest pain started 2 hours prior to ED arrival. States he was driving at the time of symptom onset. Described as nonexertional. Notes it to be pressure sensation in the left chest with radiation to the left axilla. States it is similar to his prior heart attacks. Patient's last stent placed was in [place]. Patient noted some nausea no vomiting or diaphoresis. Patient did feel some shortness of breath. No fevers or cough. Patient states he does take Plavix and aspirin. Patient states he took his nitroglycerin prior to ED arrival which improved the pain but did not completely resolve the pain. - Related Data Home Medications Medication Instructions Recorded Confirmed Aspirin [Lo-Dose Aspirin EC] 81 mg PO DAILY 03/20/17 06/04/18 Clopidogrel [Plavix] 75 mg PO DAILY 03/20/17 06/04/18 Lisinopril [Zestril] 20 mg PO DAILY 03/20/17 06/04/18 Metoprolol [Lopressor] 50 mg PO QAM 03/20/17 06/04/18 Atorvastatin Calcium [Lipitor] 40 mg PO DAILY 04/20/17 06/04/18 Albuterol Sulfate [Albuterol 1 puff IH Q6HR PRN 05/10/17 06/04/18 Inhaler] Furosemide [Lasix] 20 mg PO DAILY PRN 05/10/17 06/04/18 Finasteride [Proscar] 5 mg PO DAILY 04/16/18 06/04/18 Nitroglycerin [Nitrostat] 0.4 mg SL Q5M PRN 04/16/18 06/04/18 Omeprazole [PriLOSEC] 20 mg PO DAILY 04/16/18 06/04/18 Sennosides/Docusate Sodium 1 tab PO DAILY PRN 04/16/18 06/04/18 [Senna-Docusate Sodium Tablet] cloNIDine HCl [CloNIDine HCl] 0.1 mg PO BID PRN 04/16/18 06/04/18 Ferrous Sulfate 325 mg PO DAILY 06/04/18 06/04/18 Previous Rx's Medication Instructions Recorded Cyclobenzaprine [Flexeril] 10 mg PO BID PRN #12 tablet 05/10/17 Isosorbide MONOnitrate (24 HR) 60 mg PO DAILY #30 tab.er.24h 05/05/18 [Imdur] Allergies Allergy/AdvReac Type Severity Reaction Status Date / Time No Known Allergies Allergy Verified 06/04/18 11:17 All systems ED: reviewed and negative except as stated. Constitutional: Denies: fever Cardiovascular: Reports: chest pain. Denies: palpitations Respiratory: Reports: dyspnea. Denies: cough, sputum production Gastrointestinal: Reports: nausea. Denies: abdominal pain, vomiting Chest Pain PMH - Past Medical History Medical history: Reports: coronary artery disease, GERD, hyperlipidemia, hypertension, myocardial infarction Surgical history: Reports: angioplasty/stent, appendectomy Psychiatric history: Reports: no psych history Prior Cardiac Testing/Procedures: Stenting - Social History Smoking Status: Former smoker Alcohol use: Reports: none Drug use: Reports: none Physical Exam - General Limitations: no limitations General appearance: alert, in no apparent distress - Head Head exam: atraumatic, normocephalic, normal inspection - Eye Eye exam: Present: normal appearance, PERRL, EOMI - ENT ENT exam: normal exam, mucous membranes moist - Neck Neck exam: Present: normal inspection, trachea midline - Chest Chest inspection: Present: normal inspection, symmetric chest wall rise - Respiratory Respiratory exam: Present: normal lung sounds bilaterally. Absent: respiratory distress - Cardiovascular Cardiovascular exam: Present: regular rate, normal rhythm. Absent: systolic murmur - Abdominal Exam Abdominal exam: Present: soft, Non-Tender - Extremities Exam Extremities exam: Present: normal inspection. Absent: pedal edema - Back Exam Back exam: Present: normal inspection - Neurological Exam Neurological exam: Present: alert, CN II-XII intact - Skin Skin exam: Present: warm, dry, intact, normal color Course Course Narrative: Patient seen and examined. Patient does have a concerning history of ACS. Patient with cardiopulmonary screening evaluation with chest x-ray EKG troponin. Disposition admission. - Reevaluation(s) Reevaluation #1: Patient still continuing to have chest pain. Repeat EKG shows unifocal PVC with no ST elevation. Left axis deviation. Similar to prior EKGs. Time: 00:44 Reevaluation #2: Patient seen resting comfortably. Patient denies any chest pain. Time: 01:22 Vital Signs Pulse Rate 77 08/27/18 00:31 Respiratory Rate 19 08/27/18 00:31 Blood Pressure 163/104 08/27/18 00:31 O2 Sat by Pulse Oximetry 97 08/27/18 00:31 Pulse Rate 70 08/27/18 01:20 Respiratory Rate 18 08/27/18 01:20 Blood Pressure 159/92 08/27/18 01:20 O2 Sat by Pulse Oximetry 96 08/27/18 01:20 Oxygen Delivery Oxygen Delivery Room Air Chest Pain - MDM Narrative Medical decision making narrative: Patient presents for concerns of chest pain. Does have a concerning history with history of CAD in the past. Patient will admitted for chest pain. Patient did get some relief with nitroglycerin but did not completely resolve the pain. Patient had serial EKGs which showed no acute abnormality. Patient' s troponin is negative with 2 hour onset of chest discomfort. Patient's symptoms are not consistent with dissection or PE. - Lab Data Lab results reviewed: Yes I reviewed the patient's lab results. Result diagrams: 08/27/18 00:56 08/26/18 23:50 Lab Results 08/26/18 08/26/18 08/26/18 Range/Units 23:50 23:50 23:50 WBC (4.3-11.1) K/mcL RBC (4.19-5.50) M/mcL Hgb (12.9-16.9) g/dL Hct (37.5-50.1) % MCV (83.0-100.0) fL MCH (28.0-33.3) pg MCHC (31.6-35.5) g/dL RDW (11.5-14.5) % Plt Count (140-400) K/mcL MPV (9.4-12.4) fL Immature Gran % (0-4) % Seg Neutrophils % % Lymphocytes % % Monocytes % % Eosinophils % % Basophils % % Neutrophils # (1.6-8.9) K/mcL Lymphocytes # (0.6-4.6) K/mcL Monocytes # (0.0-1.3) K/mcL Eosinophils # (0.0-0.6) K/mcL Basophils # (0.0-0.2) K/mcL Immature Plt Fraction (1.1-6.1) % PT 11.0 (9.4-12.1) Seconds INR 1.0 Sodium 139 (136-145) mEq/L Potassium 3.5 (3.5-5.1) mEq/L Chloride 104 (98-107) mEq/L Carbon Dioxide 26 (23-29) mEq/L BUN 15 (8-23) mg/dL Creatinine 1.23 (0.70-1.30) mg/dL Est GFR ( Amer) > 60 (> 60) Est GFR (Non-Af Amer) 58 L (> 60) BUN/Creatinine Ratio 12 (6-26) Glucose 113 H (70-105) mg/dL Calculated Osmolality 290 (280-300) Calcium 9.3 (8.6-10.3) mg/dL Troponin I < 0.03 (< 0.04) ng/mL B-Natriuretic Peptide 116 H (Less than 100) pg/mL Specimen Rejected 08/27/18 08/27/18 Range/Units 00:56 23:50 WBC 5.5 (4.3-11.1) K/mcL RBC 3.90 L (4.19-5.50) M/mcL Hgb 9.9 L (12.9-16.9) g/dL Hct 30.9 L (37.5-50.1) % MCV 79.2 L (83.0-100.0) fL MCH 25.4 L (28.0-33.3) pg MCHC 32.0 (31.6-35.5) g/dL RDW 19.1 H (11.5-14.5) % Plt Count 198 (140-400) K/mcL MPV 9.6 (9.4-12.4) fL Immature Gran % 0.4 (0-4) % Seg Neutrophils % 58.8 % Lymphocytes % 22.6 % Monocytes % 14.2 % Eosinophils % 3.6 % Basophils % 0.4 % Neutrophils # 3.2 (1.6-8.9) K/mcL Lymphocytes # 1.2 (0.6-4.6) K/mcL Monocytes # 0.8 (0.0-1.3) K/mcL Eosinophils # 0.2 (0.0-0.6) K/mcL Basophils # 0.0 (0.0-0.2) K/mcL Immature Plt Fraction 2.8 (1.1-6.1) % PT (9.4-12.1) Seconds INR Sodium (136-145) mEq/L Potassium (3.5-5.1) mEq/L Chloride (98-107) mEq/L Carbon Dioxide (23-29) mEq/L BUN (8-23) mg/dL Creatinine (0.70-1.30) mg/dL Est GFR ( Amer) (> 60) Est GFR (Non-Af Amer) (> 60) BUN/Creatinine Ratio (6-26) Glucose (70-105) mg/dL Calculated Osmolality (280-300) Calcium (8.6-10.3) mg/dL Troponin I (< 0.04) ng/mL B-Natriuretic Peptide (Less than 100) pg/mL Specimen Rejected Clotted - Radiology Data Radiology results reviewed: Yes I reviewed the patient's radiology results. - EKG Data EKG attestation: Yes I reviewed and interpreted this EKG. EKG shows normal: sinus rhythm Rate: normal Rhythm: NSR [place]/QRS: left axis deviation QRS morphology: poor R-wave progression Interpretation: no acute changes, unchanged when compared to prior tracing (date ) (05/2018), nonspecific ST-T wave changes Heart Score - Score History: Highly Suspicious EKG: Normal Age: Greater than 65 Risk Factors: Equal/Greater than 3 risk factor or history of atherosclerotic disease Troponin: Less than normal limit HEART Score Total: 6 S.B.A.R. - S.B.A.R. Situation: Demographics Background: Presenting Complaint Assessment: Vital Signs, Course and respsone to treatment, Patient/Family Expectation Recommendation: Barrier(s) to disposition, Recommendation based on pending studies, treatments, or consults S.B.A.R. Report Given to: Dr. Lora Dugan Repor Time: 01:33
[2018-08-27 00:17] LABS: Troponin I < 0.03 ng/mL (< 0.04)
[2018-08-27] MEDS: Nitroglycerin 0.4 MG TAB.SUBL SL PRN ×3 (00:29→00:42)
[2018-08-27 00:36] LABS: BUN/Creatinine Ratio 12 (6-26); Blood Urea Nitrogen 15 mg/dL (8-23); Calcium 9.3 mg/dL (8.6-10.3); Carbon Dioxide 26 mEq/L (23-29); Chloride 104 mEq/L (98-107); Glucose 113 mg/dL (70-105); Osmolality,Calculated 290 (280-300); Potassium 3.5 mEq/L (3.5-5.1); Sodium 139 mEq/L (136-145); eGFR For Non-African Americans 58 (> 60)
[2018-08-27] MEDS ORDERED: *HR* HYDROmorphone (PF) 1 MG/ML SYRINGE IVP ONE (00:43)
[2018-08-27 01:03] LABS: Basophils % 0.4 %; Eosinophils # 0.2 K/mcL (0.0-0.6); Eosinophils % 3.6 %; Hematocrit 30.9 % (37.5-50.1); Immature Granulocytes % 0.4 % (0-4); Immature Platelets 2.8 % (1.1-6.1); Lymphocytes # 1.2 K/mcL (0.6-4.6); Lymphocytes % 22.6 %; Mean Corpuscular Hemoglobin 25.4 pg (28.0-33.3); Mean Corpuscular Volume 79.2 fL (83.0-100.0); Mean Platelet Volume 9.6 fL (9.4-12.4); Monocytes # 0.8 K/mcL (0.0-1.3); Monocytes % 14.2 %; Neutrophils # 3.2 K/mcL (1.6-8.9); Platelet Count 198 K/mcL (140-400); Red Cell Distribution Width 19.1 % (11.5-14.5); Segmented Neutrophils % 58.8 %
[2018-08-27 01:05] LABS: Hemoglobin 9.9 g/dL (12.9-16.9)
--- NOTE | 2018-08-27 01:39 | Emergency Department Note ---
Disposition Clinical Impression: Chest pain Qualifiers: Chest pain type: unspecified Qualified Code(s): R07.9 - Chest pain, unspecified Anemia Qualifiers: Anemia type: unspecified type Qualified Code(s): D64.9 - Anemia, unspecified Disposition: Admitted As Inpatient Condition: Fair [facility]errals: [facility] [Primary Care Provider] - General Adult HPI - General Stated complaint: Chest Pain Time Seen by Provider: 08/26/18 23:31 Source: patient Mode of arrival: wheelchair Limitations: no limitations Nursing Notes Reviewed: Yes Vital Signs Reviewed: Yes - Related Data Home Medications Medication Instructions Recorded Confirmed Aspirin [Lo-Dose Aspirin EC] 81 mg PO DAILY 03/20/17 06/04/18 Clopidogrel [Plavix] 75 mg PO DAILY 03/20/17 06/04/18 Lisinopril [Zestril] 20 mg PO DAILY 03/20/17 06/04/18 Metoprolol [Lopressor] 50 mg PO QAM 03/20/17 06/04/18 Atorvastatin Calcium [Lipitor] 40 mg PO DAILY 04/20/17 06/04/18 Albuterol Sulfate [Albuterol 1 puff IH Q6HR PRN 05/10/17 06/04/18 Inhaler] Furosemide [Lasix] 20 mg PO DAILY PRN 05/10/17 06/04/18 Finasteride [Proscar] 5 mg PO DAILY 04/16/18 06/04/18 Nitroglycerin [Nitrostat] 0.4 mg SL Q5M PRN 04/16/18 06/04/18 Omeprazole [PriLOSEC] 20 mg PO DAILY 04/16/18 06/04/18 Sennosides/Docusate Sodium 1 tab PO DAILY PRN 04/16/18 06/04/18 [Senna-Docusate Sodium Tablet] cloNIDine HCl [CloNIDine HCl] 0.1 mg PO BID PRN 04/16/18 06/04/18 Ferrous Sulfate 325 mg PO DAILY 06/04/18 06/04/18 Previous Rx's Medication Instructions Recorded Cyclobenzaprine [Flexeril] 10 mg PO BID PRN #12 tablet 05/10/17 Isosorbide MONOnitrate (24 HR) 60 mg PO DAILY #30 tab.er.24h 05/05/18 [Imdur] Allergies Allergy/AdvReac Type Severity Reaction Status Date / Time No Known Allergies Allergy Verified 06/04/18 11:17 Constitutional: Denies: fever Cardiovascular: Reports: chest pain. Denies: palpitations Respiratory: Reports: dyspnea. Denies: cough, sputum production Gastrointestinal: Reports: nausea. Denies: abdominal pain, vomiting Past Medical History - Past Medical History Medical history: Reports: coronary artery disease, GERD, hyperlipidemia, hypertension, myocardial infarction Surgical history: Reports: angioplasty/stent, appendectomy Psychiatric history: Reports: no psych history - Social History Smoking Status: Former smoker Smokeless Tobacco Status: No Alcohol use: Reports: none Drug use: Reports: none Physical Exam - General Limitations: no limitations General appearance: alert, in no apparent distress Course Vital Signs Pulse Rate 77 08/27/18 00:31 Respiratory Rate 19 08/27/18 00:31 Blood Pressure 163/104 08/27/18 00:31 O2 Sat by Pulse Oximetry 97 08/27/18 00:31 Pulse Rate 70 08/27/18 01:20 Respiratory Rate 18 08/27/18 01:20 Blood Pressure 159/92 08/27/18 01:20 O2 Sat by Pulse Oximetry 96 08/27/18 01:20 Oxygen Delivery Oxygen Delivery Room Air Medical Decision Making - Medical Records Medical records reviewed: Yes I reviewed the patient's medical records. - Lab Data Lab results reviewed: Yes I reviewed the patient's lab results. Result diagrams: 08/27/18 00:56 08/26/18 23:50 Lab Results 08/26/18 08/26/18 08/26/18 Range/Units 23:50 23:50 23:50 WBC (4.3-11.1) K/mcL RBC (4.19-5.50) M/mcL Hgb (12.9-16.9) g/dL Hct (37.5-50.1) % MCV (83.0-100.0) fL MCH (28.0-33.3) pg MCHC (31.6-35.5) g/dL RDW (11.5-14.5) % Plt Count (140-400) K/mcL MPV (9.4-12.4) fL Immature Gran % (0-4) % Seg Neutrophils % % Lymphocytes % % Monocytes % % Eosinophils % % Basophils % % Neutrophils # (1.6-8.9) K/mcL Lymphocytes # (0.6-4.6) K/mcL Monocytes # (0.0-1.3) K/mcL Eosinophils # (0.0-0.6) K/mcL Basophils # (0.0-0.2) K/mcL Immature Plt Fraction (1.1-6.1) % PT 11.0 (9.4-12.1) Seconds INR 1.0 Sodium 139 (136-145) mEq/L Potassium 3.5 (3.5-5.1) mEq/L Chloride 104 (98-107) mEq/L Carbon Dioxide 26 (23-29) mEq/L BUN 15 (8-23) mg/dL Creatinine 1.23 (0.70-1.30) mg/dL Est GFR ( Amer) > 60 (> 60) Est GFR (Non-Af Amer) 58 L (> 60) BUN/Creatinine Ratio 12 (6-26) Glucose 113 H (70-105) mg/dL Calculated Osmolality 290 (280-300) Calcium 9.3 (8.6-10.3) mg/dL Troponin I < 0.03 (< 0.04) ng/mL B-Natriuretic Peptide 116 H (Less than 100) pg/mL Specimen Rejected 08/27/18 08/27/18 Range/Units 00:56 23:50 WBC 5.5 (4.3-11.1) K/mcL RBC 3.90 L (4.19-5.50) M/mcL Hgb 9.9 L (12.9-16.9) g/dL Hct 30.9 L (37.5-50.1) % MCV 79.2 L (83.0-100.0) fL MCH 25.4 L (28.0-33.3) pg MCHC 32.0 (31.6-35.5) g/dL RDW 19.1 H (11.5-14.5) % Plt Count 198 (140-400) K/mcL MPV 9.6 (9.4-12.4) fL Immature Gran % 0.4 (0-4) % Seg Neutrophils % 58.8 % Lymphocytes % 22.6 % Monocytes % 14.2 % Eosinophils % 3.6 % Basophils % 0.4 % Neutrophils # 3.2 (1.6-8.9) K/mcL Lymphocytes # 1.2 (0.6-4.6) K/mcL Monocytes # 0.8 (0.0-1.3) K/mcL Eosinophils # 0.2 (0.0-0.6) K/mcL Basophils # 0.0 (0.0-0.2) K/mcL Immature Plt Fraction 2.8 (1.1-6.1) % PT (9.4-12.1) Seconds INR Sodium (136-145) mEq/L Potassium (3.5-5.1) mEq/L Chloride (98-107) mEq/L Carbon Dioxide (23-29) mEq/L BUN (8-23) mg/dL Creatinine (0.70-1.30) mg/dL Est GFR ( Amer) (> 60) Est GFR (Non-Af Amer) (> 60) BUN/Creatinine Ratio (6-26) Glucose (70-105) mg/dL Calculated Osmolality (280-300) Calcium (8.6-10.3) mg/dL Troponin I (< 0.04) ng/mL B-Natriuretic Peptide (Less than 100) pg/mL Specimen Rejected Clotted - EKG Data EKG #1 EKG attestation: Yes I reviewed and interpreted this EKG. EKG results narrative: EKG shows a normal sinus rhythm with ventricular rate is 72. No acute ST segment elevation or depression. No arrhythmia or ectopy. Attestation Statement - Attestation Attestation: I, Mack Yo MD, personally evaluated this patient and discussed their management with the resident physician. I reviewed the resident's note and agree with the documented findings, medical decision making, and plan of care. 73-year-old male with history of coronary artery disease and stents presents to the emergency department with a complaint of some left-sided chest pain which started while he was driving about an 31-year-old 11 PM this evening. The pain radiated to the left shoulder and down the left arm. He complains of nausea with the pain. Also shortness breath and diaphoresis. He did take his nitroglycerin which improved the pain for a short time but then the pain would return. On examination patient is a well-developed well-nourished well-appearing elderly male in no acute distress. He is alert and oriented 3. There is no cyanosis or diaphoresis. Chest is nontender to palpation. Breath sounds are clear and equal bilaterally. Heart regular rate and rhythm. Abdomen is soft and nontender with normal bowel sounds. EKG shows a normal sinus rhythm with no acute changes. Labs reviewed. Troponin normal. The hospitalist, Dr. Paulino, was consulted and accepted admission of the patient.
[2018-08-27] MEDS ORDERED: *HR* Morphine 2 MG/ML SYRINGE IVP ONE (03:31)
[2018-08-27] MEDS ORDERED: Naloxone 0.4 MG/ML INJ IVP PRN (03:56)
--- NOTE | 2018-08-27 05:05 | Internal Med History&Physical ---
Date of Encounter: 08/27/18 Time of Encounter: 05:02 Internal Medicine - H&P: HPI Chief complaint: Chest Pain History of present illness: Mr. Edwards is a 73 year old male with a past medical history of coronary artery disease status post PCI, hyperlipidemia and hypertension who presents with left- sided chest pain. Patient states he was in his usual state of health until around 11 PM this evening while driving experienced sudden intermittent eft- sided chest pain radiating to the left axilla and left side of the neck. Patient describes the pain as sharp electric shocks which buildup and radiate to his left axilla and last for a few minutes. He states the pain is unaffected with breathing or changes in position. He he does also endorse nausea and shortness of breath associated with these shocklike episodes. Patient received 1 dose of nitroglycerin in the ED which improved his symptoms for short time, however symptoms recurred. Patient was given 1 mg of Dilaudid after which his symptoms improved. Patient was given a loading dose of aspirin and admitted for observation. Initial troponin and EKG findings were within normal limits. Patient underwent left heart catheterization in May of this year which showed mild coronary artery disease; EF of 65%. Patient is currently on aspirin and Plavix in addition to a beta april and statin therapy. Past Med Surg Social Fam HX - Past Medical History Medical history: coronary artery disease, GERD, hyperlipidemia, hypertension, myocardial infarction Additional medical history: back pain Psychiatric history: no psych history - Past Surgical History Surgical History: angioplasty/stent, appendectomy Additional surgical history: heart stents 07/2017,2015. loop recorder - Social History Smoking Status: Former smoker Smokeless Tobacco Status: No Alcohol use: none Drug use: none - Family History Father Hx Family Cancer: Yes Internal Medicine - H&P: Meds Aspirin [Lo-Dose Aspirin EC] 81 mg PO DAILY 03/20/17 [History] Clopidogrel [Plavix] 75 mg PO DAILY 03/20/17 [History] Lisinopril [Zestril] 20 mg PO DAILY 03/20/17 [History] Metoprolol [Lopressor] 50 mg PO QAM 03/20/17 [History] Atorvastatin Calcium [Lipitor] 40 mg PO DAILY 04/20/17 [History] Albuterol Sulfate [Albuterol Inhaler] 1 puff IH Q6HR PRN 05/10/17 [History] Cyclobenzaprine [Flexeril] 10 mg PO BID PRN #12 tablet 05/10/17 [Rx] Furosemide [Lasix] 20 mg PO DAILY PRN 05/10/17 [History] Finasteride [Proscar] 5 mg PO DAILY 04/16/18 [History] Nitroglycerin [Nitrostat] 0.4 mg SL Q5M PRN 04/16/18 [History] Omeprazole [PriLOSEC] 20 mg PO DAILY 04/16/18 [History] Sennosides/Docusate Sodium [Senna-Docusate Sodium Tablet] 1 tab PO DAILY PRN 01/29 [History] cloNIDine HCl [CloNIDine HCl] 0.1 mg PO BID PRN 04/16/18 [History] Isosorbide MONOnitrate (24 HR) [Imdur] 60 mg PO DAILY #30 tab.er.24h 05/05/18 [ Rx] Ferrous Sulfate 325 mg PO DAILY 06/04/18 [History] 3 Allergy/AdvReac Type Severity Reaction Status Date / Time No Known Allergies Allergy Verified 06/04/18 11:17 All Systems PM: A 10-system review of systems was performed and is negative for pertinent findings except as documented above in the HPI. - Constitutional Vitals: Temp Pulse Resp BP Pulse Ox 97.6 F 75 16 173/96 96 08/27/18 02:17 08/27/18 02:17 08/27/18 02:17 08/27/18 02:17 08/27/18 02:17 Exam: General: Alert and oriented 3; in no acute distress Skin:Normal color, no rash, no lesions. HEENT:EOM, pupils equal, round and reactive. Cardiovascular:Normal S1 & S2, no rubs, murmurs or gallops. No JVD. Pulse regular. Chest wall nontender to palpation. Lungs:Normal breath sounds, no wheezes or crackles. Abdomen:Soft, non-tender, no rigidity. Extremities:No deformity, no edema or tenderness, no joint swelling or clubbing. Neurological:Normal cognition and motor skills. Pulses:Carotid and radial pulses normal +2. Rest of the physical exam is non contributory Internal Med - H&P Results - Labs CBC & Chem 7: 08/27/18 00:56 08/26/18 23:50 - Assessment and plan (1) Chest pain Current Visit: Yes Status: Acute Assessment and plan: Atypical chest pain described as left-sided electrical shocks radiating to the left axilla and neck. Nonpleuritic. Nonreproducible. Rule out acute coronary syndrome. EKG showed no acute ST or T-wave changes. Initial troponin was negative. Patient had left heart catheter in May of this year which showed mild coronary artery disease. Ejection fraction of 65%. Patient received loading dose of aspirin in the ED. We will continue to trend troponin. Sublingual nitroglycerin as needed. Cardiology consult for the morning. Qualifiers: Chest pain type: unspecified Qualified Code(s): R07.9 - Chest pain, unspecified (2) CAD (coronary artery disease) Current Visit: No Status: Chronic Assessment and plan: History of coronary artery disease status post PCI with drug-eluting stents. Patient on optical medical management. Continue aspirin, statin, beta april and Plavix. Qualifiers: Coronary Disease-Associated Artery/Lesion type: [place] artery [place] vs. transplanted heart: [place] heart Associated angina: with unstable angina Qualified Code(s): I25.110 - Atherosclerotic heart disease of [place] coronary artery with unstable angina pectoris (3) HTN (hypertension) Current Visit: No Status: Acute Assessment and plan: Blood pressure remains mildly elevated. We will resume patient's home antihypertensives. Qualifiers: Hypertension type: unspecified Qualified Code(s): I10 - Essential (primary ) hypertension - Time Spent With Patient Total time spent is greater than 50% in coordination of care (as documented) at patient's floor/unit and/or counseling patient:
[2018-08-27] MEDS ORDERED: Furosemide 20 MG TABLET PO PRN (06:10)
[2018-08-27] MEDS ORDERED: cloNIDine HCl 0.1 MG TABLET PO PRN (06:10)
[2018-08-27] MEDS ORDERED: Sennosides/Docusate Sodium TABLET PO PRN (06:10)
[2018-08-27] MEDS: *HR* Morphine 2 MG/ML SYRINGE IVP PRN ×3 (06:38→14:54)
[2018-08-27] MEDS ORDERED: Isosorbide MONOnitrate (24 HR) 30 MG TAB.ER.24H PO SCH (09:00)
[2018-08-27] MEDS ORDERED: Finasteride 5 MG TABLET PO SCH (09:00)
[2018-08-27] MEDS ORDERED: Aspirin Enteric Coated 81 MG Tablet PO SCH (09:00)
[2018-08-27] MEDS ORDERED: Lisinopril 20 MG TABLET PO SCH (09:00)
--- NOTE | 2018-08-27 11:54 | Cardiology Consult Note ---
Date of Encounter: 08/27/18 Time of Encounter: 10:30 Assessment and Plan (1) Chest pain Current Visit: Yes Status: Acute Atypical chest pain symptoms; troponin negative. No ischemic ECG changes present. Recent [facility] 2017 ([facility]) and again at [facility] May 2018 that demonstrated mild, non-obstructive CAD with preserved LVEF. Blood pressure noted to be significant elevated upon presentation and overnight. Will optimize nitrates. Consider non-cardiac causes of chest discomfort. No further recommendations as inpt, recommend outpatient follow-up with [place] [facility]or. Qualifiers: Chest pain type: precordial pain Qualified Code(s): R07.2 - Precordial pain (2) CAD (coronary artery disease) Current Visit: No Status: Chronic Hx of PCI to diagonal several years ago. Continue asa, statin, BB, nitrates. Plan as above. Qualifiers: Coronary Disease-Associated Artery/Lesion type: [place] artery [place] vs. transplanted heart: [place] heart Associated angina: with unstable angina Qualified Code(s): I25.110 - Atherosclerotic heart disease of [place] coronary artery with unstable angina pectoris (3) HTN (hypertension) Current Visit: Yes Status: Chronic Appears to be poorly controlled. Will increase nitrates. Defer further medication titration to primary service. Qualifiers: Hypertension type: essential hypertension Qualified Code(s): I10 - Essential (primary) hypertension Discussion w patient/family: The assessment and plan as outlined above was discussed with the patient and/or family members who expressed understanding and agreement. All questions were answered. Thank you for involving us in the care of your patient. Please call with any questions. The patient will be discussed and reviewed with Dr. Abrams; changes to be made accordingly. History of Present Illness Consult date: 08/27/18 Requesting physician: Yin Hanley Consult reason: Chest pain Chief complaint: Chest pain History of present illness: Mr. Edwards is a 73 year old male with PMHx significant for CAD s/p PCI (diagonal) , HTN, chronic back pain, HLD, and BPH who presented to the ED with complaints of chest pain that started around 11PM yesterday evening while driving. Chest pain described as left-sided, sharp/shooting discomfort, that radiates to his left shoulder. Discomfort typically lasts for 1.5-2 minutes. He notes that NTG tabs alleviate the pain by 50% but then recurs. Reports pain is only alleviated with Dilaudid. Discomfort is different that prior chest pain presentation, lacks pressure/heaviness. Discomfort does not worsen with exertion or movement. Denies any other new symptoms. He saw his Plumbing Contractor at the [place] last week, reports started on Imdur for unclear reasons. Upon arrival to the ED, ECG was without acute ischemic changes. Troponin was negative. His blood pressure was noted to be significant elevated upon arrival and overnight. Recent CV testing: [facility] 05/2018: mild, non-obstructive CAD. EF 60% [facility] 05/2017 ([facility]): non-obstructive CAD Past Med Surg Social Fam HX - Past Medical History Attestation: Yes The following information was validated with the patient. Source: patient Medical history: coronary artery disease, GERD, hyperlipidemia, hypertension, myocardial infarction Additional medical history: back pain Psychiatric history: no psych history - Past Surgical History Surgical History: angioplasty/stent, appendectomy Additional surgical history: heart stents 07/2017,2015. loop recorder - Social History Smoking Status: Former smoker Smokeless Tobacco Status: No Alcohol use: none Drug use: none - Family History Father Hx Family Cancer: Yes Medications and Allergies Aspirin [Lo-Dose Aspirin EC] 81 mg PO DAILY 03/20/17 [History] Clopidogrel [Plavix] 75 mg PO DAILY 03/20/17 [History] Lisinopril [Zestril] 20 mg PO DAILY 03/20/17 [History] Metoprolol [Lopressor] 50 mg PO QAM 03/20/17 [History] Atorvastatin Calcium [Lipitor] 40 mg PO DAILY 04/20/17 [History] Albuterol Sulfate [Albuterol Inhaler] 1 puff IH Q6HR PRN 05/10/17 [History] Cyclobenzaprine [Flexeril] 10 mg PO BID PRN #12 tablet 05/10/17 [Rx] Furosemide [Lasix] 20 mg PO DAILY PRN 05/10/17 [History] Finasteride [Proscar] 5 mg PO DAILY 04/16/18 [History] Nitroglycerin [Nitrostat] 0.4 mg SL Q5M PRN 04/16/18 [History] Omeprazole [PriLOSEC] 20 mg PO DAILY 04/16/18 [History] Sennosides/Docusate Sodium [Senna-Docusate Sodium Tablet] 1 tab PO DAILY PRN 01/29 [History] cloNIDine HCl [CloNIDine HCl] 0.1 mg PO BID PRN 04/16/18 [History] Isosorbide MONOnitrate (24 HR) [Imdur] 60 mg PO DAILY #30 tab.er.24h 05/05/18 [ Rx] Ferrous Sulfate 325 mg PO DAILY 06/04/18 [History] 3 Allergy/AdvReac Type Severity Reaction Status Date / Time No Known Allergies Allergy Verified 06/04/18 11:17 All Systems Review: The remainder of the systems were reviewed and are negative - Cardiovascular Cardiovascular: as per HPI Physical Examination Vital Signs, Last 4 Hours Temp Pulse Resp BP Pulse Ox 08/27/18 11:20 98.2 F 56 16 155/65 95 General: Conversant, No Apparent Distress HEENT: Atraumatic, Normocephaly, Mucus Membranes Moist Neck: No JVD, Normal carotid pulses Cardiac: Reg Rate and Rhythm, Normal S1 and S2, No Murmur Lungs: Normal Breath Sounds, No Wheeze, Rales, Rhonchi Neuro: Alert and responsive, No focal deficits noted Abdomen: Soft, Non-Tender Skin: No rashes noted on visualized skin Musculoskeletal: No Chest Wall Tenderness Extremities: No Clubbing, No Cyanosis, No Edema, Normal Pulses Results 08/27/18 00:56 08/26/18 23:50 Lab Results 08/27/18 06:08 Troponin I < 0.03 Active Medications Albuterol Sulfate (Albuterol Inhaler) 1 puff IH [id number] PRN PRN Reason: Shortness Of Breath Stop: 02/26/19 06:11 Aspirin (Aspirin Ec) 81 mg PO DAILY [facility] Stop: 02/26/19 09:01 Last Admin: 08/27/18 08:41 Dose: 81 mg Atorvastatin Calcium (Lipitor) 40 mg PO DAILY [facility] Stop: 02/26/19 09:01 Last Admin: 08/27/18 08:42 Dose: 40 mg Clonidine HCl (Clonidine Hcl) 0.1 mg PO BID PRN PRN Reason: BP >160/100 Stop: 02/26/19 06:11 Clopidogrel Bisulfate (Plavix) 75 mg PO DAILY [facility] Stop: 02/26/19 09:01 Last Admin: 08/27/18 08:41 Dose: 75 mg Finasteride (Proscar) 5 mg PO DAILY [facility] PRN Reason: Protocol Stop: 02/26/19 09:01 Last Admin: 08/27/18 08:42 Dose: 5 mg Furosemide (Lasix) 20 mg PO DAILY PRN PRN Reason: Edema Stop: 02/26/19 06:11 Isosorbide Mononitrate (Imdur) 30 mg PO ONCE ONE Stop: 08/27/18 12:01 Isosorbide Mononitrate (Imdur) 90 mg PO DAILY [facility] Stop: 02/27/19 09:01 Lisinopril (Zestril) 20 mg PO DAILY [facility] PRN Reason: Protocol Stop: 02/26/19 09:01 Last Admin: 08/27/18 08:41 Dose: 20 mg Metoprolol Tartrate (Lopressor) 50 mg PO QAM [facility] Stop: 02/26/19 09:01 Last Admin: 08/27/18 08:41 Dose: 50 mg Morphine Sulfate (Morphine Sulfate) 2 mg IVP Q4HR PRN; Protocol PRN Reason: Moderate Pain Stop: 02/26/19 04:45 Last Admin: 08/27/18 10:48 Dose: 2 mg Naloxone HCl (Narcan) 0.4 mg IVP Q2MIN PRN PRN Reason: SEE COMMENTS Stop: 02/26/19 03:57 Nitroglycerin (Nitroglycerin) 0.4 mg SL Q5MIN PRN PRN Reason: Chest Pain Stop: 02/25/19 23:38 Last Admin: 08/27/18 00:42 Dose: 0.4 mg Omeprazole (Prilosec) 20 mg PO DAILY [facility] PRN Reason: Protocol Stop: 02/26/19 09:01 Last Admin: 08/27/18 08:41 Dose: 20 mg Senna/Docusate Sodium (Senna Plus) 1 each PO DAILY PRN; Protocol PRN Reason: Constipation Stop: 02/26/19 06:11 - Imaging and Cardiology Echo: report reviewed Cardiac cath: report reviewed Other Results: 12 hour tele: avg HR=68 SR. No events noted. - EKG Interpretation EKG results cardiology: personally reviewed Consult Discharge Plan - Plan [facility]errals: [facility] [Primary Care Provider] -
[2018-08-27] MEDS ORDERED: Isosorbide MONOnitrate (24 HR) 30 MG TAB.ER.24H PO ONE (12:00)
[2018-08-27 17:23] VITALS: BP 170/93
--- NOTE | 2018-08-27 17:53 | Discharge Summary ---
- NOTES TO OUTPATIENT PROVIDER Notes to Outpatient Provider: Imdur increased per cardiology will need to follow up as an outpatient also will need to closely monitor blood pressure advised patient to keep blood pressure log. Increased lisinopril- monitor kidney function Orders not resulted at time of discharge: Pending orders 08/27/18 06:00 EKG [ECG 12 lead ECG] [ECG] AM 0600 Date of Encounter: 08/27/18 Time of Encounter: 17:46 - Discharge Diagnosis (1) CAD (coronary artery disease) Priority: Secondary Status: Chronic Qualifiers: Coronary Disease-Associated Artery/Lesion type: [place] artery [place] vs. transplanted heart: [place] heart Associated angina: with unstable angina Qualified Code(s): I25.110 - Atherosclerotic heart disease of [place] coronary artery with unstable angina pectoris (2) HTN (hypertension) Priority: Secondary Status: Chronic Qualifiers: Hypertension type: essential hypertension Qualified Code(s): I10 - Essential (primary) hypertension (3) Chest pain Priority: Primary Status: Acute Qualifiers: Chest pain type: unspecified Qualified Code(s): R07.9 - Chest pain, unspecified Hospital course: Mr. Edwards is a 73 year old male - Time Spent with Patient Total time spent providing and/or coordinating discharge services: - Discharge Medications Prescriptions: Isosorbide MONOnitrate (24 HR) [Imdur] 90 mg PO DAILY #30 tab.er.24h Lisinopril [Zestril] 40 mg PO DAILY #30 tablet Lisinopril [Zestril] 30 mg PO DAILY #30 tablet Home Medications: Aspirin [Lo-Dose Aspirin EC] 81 mg PO DAILY 03/20/17 [History] Clopidogrel [Plavix] 75 mg PO DAILY 03/20/17 [History] Metoprolol [Lopressor] 50 mg PO QAM 03/20/17 [History] Atorvastatin Calcium [Lipitor] 40 mg PO DAILY 04/20/17 [History] Albuterol Sulfate [Albuterol Inhaler] 1 puff IH Q6HR PRN 05/10/17 [History] Cyclobenzaprine [Flexeril] 10 mg PO BID PRN #12 tablet 05/10/17 [Rx] Furosemide [Lasix] 20 mg PO DAILY PRN 05/10/17 [History] Finasteride [Proscar] 5 mg PO DAILY 04/16/18 [History] Nitroglycerin [Nitrostat] 0.4 mg SL Q5M PRN 04/16/18 [History] Omeprazole [PriLOSEC] 20 mg PO DAILY 04/16/18 [History] Sennosides/Docusate Sodium [Senna-Docusate Sodium Tablet] 1 tab PO DAILY PRN 01/29 [History] cloNIDine HCl [CloNIDine HCl] 0.1 mg PO BID PRN 04/16/18 [History] Ferrous Sulfate 325 mg PO DAILY 06/04/18 [History] Isosorbide MONOnitrate (24 HR) [Imdur] 90 mg PO DAILY #30 tab.er.24h 08/27/18 [ Rx] Lisinopril [Zestril] 30 mg PO DAILY #30 tablet 08/27/18 [Rx] Lisinopril [Zestril] 40 mg PO DAILY #30 tablet 08/27/18 [Rx] Allergies/Adverse Reactions: 3 Allergy/AdvReac Type Severity Reaction Status Date / Time No Known Allergies Allergy Verified 06/04/18 11:17 Date of admission: 08/27/18 01:37 [facility] care physician: [facility] Consults: 08/27/18 04:47 Consult to Cardiology [CONS] Routine Comment: Consulting Provider: Cardiology [facility] Reason for Consult: Recurrent chest pain Call Completed: No Discharging clinician: Rohini Munguia Anticipated date of discharge: 08/27/18 - Constitutional Vitals: Temp Pulse Resp BP Pulse Ox 98.2 F 56 16 170/93 95 08/27/18 11:20 08/27/18 11:20 08/27/18 11:20 08/27/18 17:22 08/27/18 11:20 Exam: General: Alert and oriented 3; in no acute distress Skin:Normal color, no rash, no lesions. HEENT:EOM, pupils equal, round and reactive. Cardiovascular:Normal S1 & S2, no rubs, murmurs or gallops. No JVD. Pulse regular. Chest wall nontender to palpation. Lungs:Normal breath sounds, no wheezes or crackles. Abdomen:Soft, non-tender, no rigidity. Extremities:No deformity, no edema or tenderness, no joint swelling or clubbing. Neurological:Normal cognition and motor skills. Pulses:Carotid and radial pulses normal +2. Rest of the physical exam is non contributory - Patient Status Disposition: Home, Self-Care Condition: Fair Functional capacity at discharge: independent ambulation Overall status at discharge: patient is back to baseline - Discharge Instructions Instructions: Lisinopril (By mouth), Isosorbide Mononitrate (By mouth), Chest Pain (DC), Chronic Hypertension (DC), Anemia (GEN) Follow Up With: [facility] [Primary Care Provider] - (Please call and schedule a follow up to be seen within 7 days.) Additional Instructions: Keep a log of your blood pressures. Return to the emergency department if needed. - Diet and Activity Activity: increase activity as tolerated Diet: low fat, low cholesterol, low salt diet
[2018-08-28] MEDS ORDERED: Lisinopril 20 MG TABLET PO SCH (09:00)
[2018-08-28] MEDS ORDERED: Isosorbide MONOnitrate (24 HR) 30 MG TAB.ER.24H PO SCH (09:00)
--- NOTE | 2018-08-28 11:19 | Electrocardiograph Report ---
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
--- NOTE | 2018-08-28 11:23 | Electrocardiograph Report ---
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
== END 2018-08-27 18:20 | disposition home or self-care (01) ==
LOC: 3BNU 23:23 → EMEROOARM 23:23 → 3BNU 08-27 02:14
PROVIDERS: ADMIT Internal Medicine; ATTEND Internal Medicine

== ENCOUNTER 2018-10-28 05:12 | Observation (INO) ==
--- NOTE | 2018-10-28 05:31 | Emergency Department Note ---
SOB HPI - General Stated Complaint: CHEST PAIN Time Seen by Provider: 10/28/18 05:22 Nursing Notes Reviewed: Yes Vital Signs Reviewed: Yes - Related Data Home Medications Medication Instructions Recorded Confirmed Aspirin [Lo-Dose Aspirin EC] 81 mg PO DAILY 03/20/17 10/22/18 Clopidogrel [Plavix] 75 mg PO DAILY 03/20/17 08/27/18 Metoprolol [Lopressor] 50 mg PO BID 03/20/17 10/22/18 Atorvastatin Calcium [Lipitor] 40 mg PO DAILY 04/20/17 10/22/18 Albuterol Sulfate [Albuterol 2 puff IH Q6HR PRN 05/10/17 10/22/18 Inhaler] Furosemide [Lasix] 20 mg PO DAILY PRN 05/10/17 08/27/18 Finasteride [Proscar] 5 mg PO DAILY 04/16/18 10/22/18 Nitroglycerin [Nitrostat] 0.4 mg SL Q5M PRN 04/16/18 10/22/18 Omeprazole [PriLOSEC] 20 mg PO DAILY 04/16/18 10/22/18 cloNIDine HCl [CloNIDine HCl] 0.1 mg PO BID PRN 04/16/18 10/22/18 Ferrous Sulfate 325 mg PO DAILY 06/04/18 08/27/18 Cyclobenzaprine [Flexeril] 10 mg PO HS 10/22/18 10/22/18 Etodolac 300 mg PO BID 10/22/18 10/22/18 Tamsulosin HCl [Flomax] 0.4 mg PO DAILY 10/22/18 10/22/18 Triamterene/HCTZ 37.5/25mg 1 tab PO DAILY 10/22/18 10/22/18 [Dyazide] Previous Rx's Medication Instructions Recorded Isosorbide MONOnitrate (24 HR) 90 mg PO DAILY #30 tab.er.24h 08/27/18 [Imdur] Lisinopril [Zestril] 30 mg PO DAILY #30 tablet 08/27/18 Acetaminophen [Tylenol] 650 mg PO Q6H PRN #0 10/22/18 Allergies Allergy/AdvReac Type Severity Reaction Status Date / Time No Known Allergies Allergy Verified 10/28/18 05:15 All systems ED: reviewed and negative except as stated. Review of Systems: As Per HPI Past Medical History - Past Medical History Medical history: Reports: coronary artery disease, GERD, hyperlipidemia, hypertension, myocardial infarction Surgical history: Reports: angioplasty/stent, appendectomy Psychiatric history: Reports: no psych history - Social History Smoking Status: Former smoker Smokeless Tobacco Status: No Alcohol use: Reports: none Drug use: Reports: none Course Vital Signs Temperature 98.8 F 10/28/18 05:18 Pulse Rate 80 10/28/18 05:18 Respiratory Rate 20 10/28/18 05:18 Blood Pressure 157/101 10/28/18 05:18 O2 Sat by Pulse Oximetry 98 10/28/18 05:18 Temperature 98.8 F 10/28/18 05:18 Pulse Rate 80 10/28/18 05:18 Respiratory Rate 20 10/28/18 05:18 Blood Pressure 157/101 10/28/18 05:18 O2 Sat by Pulse Oximetry 98 10/28/18 05:18 Oxygen Delivery Oxygen Delivery Room Air
[2018-10-28 05:40] LABS: Basophils % 0.5 %; Eosinophils # 0.2 K/mcL (0.0-0.6); Hematocrit 32.4 % (37.5-50.1); Hemoglobin 10.3 g/dL (12.9-16.9); Immature Granulocytes % 0.2 % (0-4); Lymphocytes # 1.2 K/mcL (0.6-4.6); Lymphocytes % 19.6 %; Mean Corpuscular HGB Conc 31.8 g/dL (31.6-35.5); Mean Corpuscular Hemoglobin 24.5 pg (28.0-33.3); Mean Corpuscular Volume 77.1 fL (83.0-100.0); Mean Platelet Volume 9.3 fL (9.4-12.4); Monocytes # 0.8 K/mcL (0.0-1.3); Monocytes % 12.7 %; Neutrophils # 3.8 K/mcL (1.6-8.9); Platelet Count 243 K/mcL (140-400); Red Cell Distribution Width 16.9 % (11.5-14.5)
[2018-10-28] MEDS ORDERED: Aspirin 81 MG TAB.CHEW PO ONE (05:45)
--- NOTE | 2018-10-28 05:49 | Emergency Department Note ---
Disposition Clinical Impression: Chest pain Qualifiers: Chest pain type: unspecified Qualified Code(s): R07.9 - Chest pain, unspecified Disposition: Admitted As Inpatient Condition: Fair [facility]Primary Care Provider[facility] - Forms: ED Satisfaction Letter Time of Disposition: 07:03 Chest Pain HPI - General Chief Complaint: ED Chest Pain Stated Complaint: CHEST PAIN Time Seen by Provider: 10/28/18 05:22 Source: patient Limitations: no limitations Vital Signs Reviewed: Yes Nursing Notes Reviewed: Yes - History of Present Illness HPI Narrative: 73-year-old male presents from home for evaluation of chest pain. Onset 3 hours prior to arrival. Described as left parasternal sharp stabbing which builds in intensity to a lightning pain down his left arm. Associate with nausea, diaphoresis, shortness of breath. Described as waxing and waning; lasted approximately 30 minutes before transiently resolving. Improved with some legal nitroglycerin of his own prescription. Similar in character and intensity to symptoms which warranted stent placement 1 year ago. 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 He was recently seen and evaluated for similar symptoms at a hospital in [place] where, at that time, he was helping a friend move. This was last week. PMH: Hypertension, CAD with ACS status post stent 2. ROS: Positive: As above Negative: Fever, chills, vomiting, palpitations, unusual back pain, abdominal pain, diarrhea or constipation Severity scale (1-10): 8 - Related Data Home Medications Medication Instructions Recorded Confirmed Aspirin [Lo-Dose Aspirin EC] 81 mg PO DAILY 03/20/17 10/22/18 Clopidogrel [Plavix] 75 mg PO DAILY 03/20/17 08/27/18 Metoprolol [Lopressor] 50 mg PO BID 03/20/17 10/22/18 Atorvastatin Calcium [Lipitor] 40 mg PO DAILY 04/20/17 10/22/18 Albuterol Sulfate [Albuterol 2 puff IH Q6HR PRN 05/10/17 10/22/18 Inhaler] Furosemide [Lasix] 20 mg PO DAILY PRN 05/10/17 08/27/18 Finasteride [Proscar] 5 mg PO DAILY 04/16/18 10/22/18 Nitroglycerin [Nitrostat] 0.4 mg SL Q5M PRN 04/16/18 10/22/18 Omeprazole [PriLOSEC] 20 mg PO DAILY 04/16/18 10/22/18 cloNIDine HCl [CloNIDine HCl] 0.1 mg PO BID PRN 04/16/18 10/22/18 Ferrous Sulfate 325 mg PO DAILY 06/04/18 08/27/18 Cyclobenzaprine [Flexeril] 10 mg PO HS 10/22/18 10/22/18 Etodolac 300 mg PO BID 10/22/18 10/22/18 Tamsulosin HCl [Flomax] 0.4 mg PO DAILY 10/22/18 10/22/18 Triamterene/HCTZ 37.5/25mg 1 tab PO DAILY 10/22/18 10/22/18 [Dyazide] Previous Rx's Medication Instructions Recorded Isosorbide MONOnitrate (24 HR) 90 mg PO DAILY #30 tab.er.24h 08/27/18 [Imdur] Lisinopril [Zestril] 30 mg PO DAILY #30 tablet 08/27/18 Acetaminophen [Tylenol] 650 mg PO Q6H PRN #0 10/22/18 Allergies Allergy/AdvReac Type Severity Reaction Status Date / Time No Known Allergies Allergy Verified 10/28/18 05:15 All systems ED: reviewed and negative except as stated. Review of Systems: As Per HPI Chest Pain PMH - Past Medical History Medical history: Reports: coronary artery disease, GERD, hyperlipidemia, hypertension, myocardial infarction Surgical history: Reports: angioplasty/stent, appendectomy Psychiatric history: Reports: no psych history Prior Cardiac Testing/Procedures: Stenting - Social History Smoking Status: Former smoker Alcohol use: Reports: none Drug use: Reports: none Physical Exam Vital Signs Reviewed General: Patient is alert, oriented, and in distress from his chest pain. He appears uncomfortable, short of breath. Head: atraumatic, normocephalic Eye: normal appearance, no scleral icterus, no conjunctival injection ENT: mucous membranes moist, normal external ear exam Neck: normal inspection, trachea midline, full ROM Chest: normal inspection, symmetric chest rise Respiratory: Good respiratory effort. Bilateral breath sounds are clear without wheezing, crackles, or rhonchi. Cardiovascular: Regular rate and rhythm. No clicks, rubs, gallops, or murmors. Normal heart sounds. Bilateral radial pulses 2/4 equal. Abdomen: Bowel sounds present normoactive. Abdomen is soft, nondistended, and nontender. No guarding or rebound. Musculoskeletal: Spontaneously moving all extremities. Skin: warm, dry, intact. Neuro: GCS 15. No focal neurologic deficits observed. Psych: Patient's affect is appropriate for situation. - General Limitations: no limitations General appearance: alert, in no apparent distress Course Course Narrative: Chart check: Cardiac catheterization 05/2018 showed moderate cardiovascular disease, LVEF 65%, no stents placed at that time. Immediate concern is for ACS/unstable angina. EKG shows no acute ischemic changes. Patient's history is concerning as is his clinical picture. Patient provides business card for Dr. Jerry Mortensen, [employer] who has information patient's recent exercise stress test perf [facility] [place]. F: [phone], ph:[phone] The above appears to be a systems operator office. They will not be open through the night normally be open this weekend. EKG dated 10/28/2018 at 05:18 interpreted as sinus rhythm with rate of 80. IL 147, QRS 13, QTC 447. PVC. Nonspecific ST-T changes. Compared to previous EKG dated 10/21/2018 showing no acute ischemic changes or comparison. Serum hematology shows anemia consistent with patient's baseline. Serum chemistry is unremarkable; initial troponin below upper limits of normal. EKG is unremarkable. Patient symptoms improved with some sublingual nitroglycerin 3. Blood pressure tolerated nitroglycerin. Patient's chest pain began to return approximately 20 minutes after his last sublingual nitroglycerin. Begin nitroglycerin drip. Patient complains of headache. He is provided with thousand milligrams Tylenol. Followed by 50 g but no. I discussed the above with the admitting hospitalist, Dr. Sharma. He agrees to see the patient for chest pain rule out ACS. Vital Signs Temperature 98.8 F 10/28/18 05:18 Pulse Rate 80 10/28/18 05:18 Respiratory Rate 20 10/28/18 05:18 Blood Pressure 157/101 10/28/18 05:18 O2 Sat by Pulse Oximetry 98 10/28/18 05:18 Temperature 98.8 F 10/28/18 05:18 Pulse Rate 92 10/28/18 06:23 Respiratory Rate 20 10/28/18 06:23 Blood Pressure 152/84 10/28/18 06:23 O2 Sat by Pulse Oximetry 96 10/28/18 06:23 Oxygen Delivery Oxygen Delivery Room Air Chest Pain - Lab Data Result diagrams: 10/28/18 05:28 10/28/18 05:28 Lab Results 10/28/18 10/28/18 10/28/18 Range/Units 05:28 05:28 05:28 WBC 6.1 (4.3-11.1) K/mcL RBC 4.20 (4.19-5.50) M/mcL Hgb 10.3 L (12.9-16.9) g/dL Hct 32.4 L (37.5-50.1) % MCV 77.1 L (83.0-100.0) fL MCH 24.5 L (28.0-33.3) pg MCHC 31.8 (31.6-35.5) g/dL RDW 16.9 H (11.5-14.5) % Plt Count 243 (140-400) K/mcL MPV 9.3 L (9.4-12.4) fL Immature Gran % 0.2 (0-4) % Seg Neutrophils % 63.0 % Lymphocytes % 19.6 % Monocytes % 12.7 % Eosinophils % 4.0 % Basophils % 0.5 % Neutrophils # 3.8 (1.6-8.9) K/mcL Lymphocytes # 1.2 (0.6-4.6) K/mcL Monocytes # 0.8 (0.0-1.3) K/mcL Eosinophils # 0.2 (0.0-0.6) K/mcL Basophils # 0.0 (0.0-0.2) K/mcL PT (9.4-12.1) Seconds INR APTT (26.0-36.0) Seconds Sodium 137 (136-145) mEq/L Potassium 3.9 (3.5-5.1) mEq/L Chloride 105 (98-107) mEq/L Carbon Dioxide 23 (23-29) mEq/L BUN 18 (8-23) mg/dL Creatinine 1.24 (0.70-1.30) mg/dL Est GFR ( Amer) > 60 (> 60) Est GFR (Non-Af Amer) 57 L (> 60) BUN/Creatinine Ratio 15 (6-26) Glucose 109 H (70-105) mg/dL Calculated Osmolality 286 (280-300) Lactic Acid (0.5-2.2) mmol/L Calcium 9.5 (8.6-10.3) mg/dL Troponin I < 0.03 (< 0.04) ng/mL B-Natriuretic Peptide 30 (Less than 100) pg/mL 10/28/18 10/28/18 Range/Units 05:28 05:42 WBC (4.3-11.1) K/mcL RBC (4.19-5.50) M/mcL Hgb (12.9-16.9) g/dL Hct (37.5-50.1) % MCV (83.0-100.0) fL MCH (28.0-33.3) pg MCHC (31.6-35.5) g/dL RDW (11.5-14.5) % Plt Count (140-400) K/mcL MPV (9.4-12.4) fL Immature Gran % (0-4) % Seg Neutrophils % % Lymphocytes % % Monocytes % % Eosinophils % % Basophils % % Neutrophils # (1.6-8.9) K/mcL Lymphocytes # (0.6-4.6) K/mcL Monocytes # (0.0-1.3) K/mcL Eosinophils # (0.0-0.6) K/mcL Basophils # (0.0-0.2) K/mcL PT 11.1 (9.4-12.1) Seconds INR 1.0 APTT 30.7 (26.0-36.0) Seconds Sodium (136-145) mEq/L Potassium (3.5-5.1) mEq/L Chloride (98-107) mEq/L Carbon Dioxide (23-29) mEq/L BUN (8-23) mg/dL Creatinine (0.70-1.30) mg/dL Est GFR ( Amer) (> 60) Est GFR (Non-Af Amer) (> 60) BUN/Creatinine Ratio (6-26) Glucose (70-105) mg/dL Calculated Osmolality (280-300) Lactic Acid 1.2 (0.5-2.2) mmol/L Calcium (8.6-10.3) mg/dL Troponin I (< 0.04) ng/mL B-Natriuretic Peptide (Less than 100) pg/mL Heart Score - Score History: Moderately Suspicious EKG: Non Specific repolarisation Disturbance Age: Greater than 65 Risk Factors: Equal/Greater than 3 risk factor or history of atherosclerotic dis ease Troponin: Less than normal limit HEART Score Total: 6
[2018-10-28 05:59] LABS: Troponin I < 0.03 ng/mL (< 0.04)
[2018-10-28 06:00] LABS: BUN/Creatinine Ratio 15 (6-26); Blood Urea Nitrogen 18 mg/dL (8-23); Calcium 9.5 mg/dL (8.6-10.3); Carbon Dioxide 23 mEq/L (23-29); Chloride 105 mEq/L (98-107); Glucose 109 mg/dL (70-105); Osmolality,Calculated 286 (280-300); Potassium 3.9 mEq/L (3.5-5.1); Sodium 137 mEq/L (136-145); eGFR For Non-African Americans 57 (> 60)
[2018-10-28 06:04] LABS: Prothrombin Time 11.1 Seconds (9.4-12.1)
[2018-10-28 06:07] LABS: Activated Partial Thrombo Time 30.7 Seconds (26.0-36.0)
[2018-10-28] MEDS: Nitroglycerin 0.4 MG TAB.SUBL SL ONE ×3 (06:11→06:21)
--- NOTE | 2018-10-28 06:45 | Emergency Department Note ---
Disposition Clinical Impression: Chest pain Qualifiers: Chest pain type: unspecified Qualified Code(s): R07.9 - Chest pain, unspecified Disposition: Admitted As Inpatient Condition: Fair General Adult HPI - General Chief complaint: ED Chest Pain Stated complaint: CHEST PAIN Time Seen by Provider: 10/28/18 05:22 Source: patient Limitations: no limitations Nursing Notes Reviewed: Yes Vital Signs Reviewed: Yes - History of Present Illness Pain Scale: 8 - Related Data Home Medications Medication Instructions Recorded Confirmed Aspirin [Lo-Dose Aspirin EC] 81 mg PO DAILY 03/20/17 10/22/18 Clopidogrel [Plavix] 75 mg PO DAILY 03/20/17 08/27/18 Metoprolol [Lopressor] 50 mg PO BID 03/20/17 10/22/18 Atorvastatin Calcium [Lipitor] 40 mg PO DAILY 04/20/17 10/22/18 Albuterol Sulfate [Albuterol 2 puff IH Q6HR PRN 05/10/17 10/22/18 Inhaler] Furosemide [Lasix] 20 mg PO DAILY PRN 05/10/17 08/27/18 Finasteride [Proscar] 5 mg PO DAILY 04/16/18 10/22/18 Nitroglycerin [Nitrostat] 0.4 mg SL Q5M PRN 04/16/18 10/22/18 Omeprazole [PriLOSEC] 20 mg PO DAILY 04/16/18 10/22/18 cloNIDine HCl [CloNIDine HCl] 0.1 mg PO BID PRN 04/16/18 10/22/18 Ferrous Sulfate 325 mg PO DAILY 06/04/18 08/27/18 Cyclobenzaprine [Flexeril] 10 mg PO HS 10/22/18 10/22/18 Etodolac 300 mg PO BID 10/22/18 10/22/18 Tamsulosin HCl [Flomax] 0.4 mg PO DAILY 10/22/18 10/22/18 Triamterene/HCTZ 37.5/25mg 1 tab PO DAILY 10/22/18 10/22/18 [Dyazide] Previous Rx's Medication Instructions Recorded Isosorbide MONOnitrate (24 HR) 90 mg PO DAILY #30 tab.er.24h 08/27/18 [Imdur] Lisinopril [Zestril] 30 mg PO DAILY #30 tablet 08/27/18 Acetaminophen [Tylenol] 650 mg PO Q6H PRN #0 10/22/18 Allergies Allergy/AdvReac Type Severity Reaction Status Date / Time No Known Allergies Allergy Verified 10/28/18 05:15 Past Medical History - Past Medical History Medical history: Reports: coronary artery disease, GERD, hyperlipidemia, hypertension, myocardial infarction Surgical history: Reports: angioplasty/stent, appendectomy Psychiatric history: Reports: no psych history - Social History Smoking Status: Former smoker Smokeless Tobacco Status: No Alcohol use: Reports: none Drug use: Reports: none Physical Exam - General Limitations: no limitations General appearance: alert, in no apparent distress Course Vital Signs Temperature 98.8 F 10/28/18 05:18 Pulse Rate 80 10/28/18 05:18 Respiratory Rate 20 10/28/18 05:18 Blood Pressure 157/101 10/28/18 05:18 O2 Sat by Pulse Oximetry 98 10/28/18 05:18 Temperature 98.8 F 10/28/18 05:18 Pulse Rate 92 10/28/18 06:23 Respiratory Rate 20 10/28/18 06:23 Blood Pressure 152/84 10/28/18 06:23 O2 Sat by Pulse Oximetry 96 10/28/18 06:23 Oxygen Delivery Oxygen Delivery Room Air Medical Decision Making - Medical Records Medical records reviewed: Yes I reviewed the patient's medical records. - Lab Data Lab results reviewed: Yes I reviewed the patient's lab results. Result diagrams: 10/28/18 05:28 10/28/18 05:28 Lab Results 10/28/18 10/28/18 10/28/18 Range/Units 05:28 05:28 05:28 WBC 6.1 (4.3-11.1) K/mcL RBC 4.20 (4.19-5.50) M/mcL Hgb 10.3 L (12.9-16.9) g/dL Hct 32.4 L (37.5-50.1) % MCV 77.1 L (83.0-100.0) fL MCH 24.5 L (28.0-33.3) pg MCHC 31.8 (31.6-35.5) g/dL RDW 16.9 H (11.5-14.5) % Plt Count 243 (140-400) K/mcL MPV 9.3 L (9.4-12.4) fL Immature Gran % 0.2 (0-4) % Seg Neutrophils % 63.0 % Lymphocytes % 19.6 % Monocytes % 12.7 % Eosinophils % 4.0 % Basophils % 0.5 % Neutrophils # 3.8 (1.6-8.9) K/mcL Lymphocytes # 1.2 (0.6-4.6) K/mcL Monocytes # 0.8 (0.0-1.3) K/mcL Eosinophils # 0.2 (0.0-0.6) K/mcL Basophils # 0.0 (0.0-0.2) K/mcL PT (9.4-12.1) Seconds INR APTT (26.0-36.0) Seconds Sodium 137 (136-145) mEq/L Potassium 3.9 (3.5-5.1) mEq/L Chloride 105 (98-107) mEq/L Carbon Dioxide 23 (23-29) mEq/L BUN 18 (8-23) mg/dL Creatinine 1.24 (0.70-1.30) mg/dL Est GFR ( Amer) > 60 (> 60) Est GFR (Non-Af Amer) 57 L (> 60) BUN/Creatinine Ratio 15 (6-26) Glucose 109 H (70-105) mg/dL Calculated Osmolality 286 (280-300) Lactic Acid (0.5-2.2) mmol/L Calcium 9.5 (8.6-10.3) mg/dL Troponin I < 0.03 (< 0.04) ng/mL B-Natriuretic Peptide 30 (Less than 100) pg/mL 10/28/18 10/28/18 Range/Units 05:28 05:42 WBC (4.3-11.1) K/mcL RBC (4.19-5.50) M/mcL Hgb (12.9-16.9) g/dL Hct (37.5-50.1) % MCV (83.0-100.0) fL MCH (28.0-33.3) pg MCHC (31.6-35.5) g/dL RDW (11.5-14.5) % Plt Count (140-400) K/mcL MPV (9.4-12.4) fL Immature Gran % (0-4) % Seg Neutrophils % % Lymphocytes % % Monocytes % % Eosinophils % % Basophils % % Neutrophils # (1.6-8.9) K/mcL Lymphocytes # (0.6-4.6) K/mcL Monocytes # (0.0-1.3) K/mcL Eosinophils # (0.0-0.6) K/mcL Basophils # (0.0-0.2) K/mcL PT 11.1 (9.4-12.1) Seconds INR 1.0 APTT 30.7 (26.0-36.0) Seconds Sodium (136-145) mEq/L Potassium (3.5-5.1) mEq/L Chloride (98-107) mEq/L Carbon Dioxide (23-29) mEq/L BUN (8-23) mg/dL Creatinine (0.70-1.30) mg/dL Est GFR ( Amer) (> 60) Est GFR (Non-Af Amer) (> 60) BUN/Creatinine Ratio (6-26) Glucose (70-105) mg/dL Calculated Osmolality (280-300) Lactic Acid 1.2 (0.5-2.2) mmol/L Calcium (8.6-10.3) mg/dL Troponin I (< 0.04) ng/mL B-Natriuretic Peptide (Less than 100) pg/mL - Radiology Data Radiology results reviewed: Yes I reviewed the patient's radiology results. Chest X-Ray 10/28/18 05:29 IMPRESSION: Possible developing pulmonary edema. D/ / Bryon Ernandez MD / Bryon Ernandez MD Interpreting Provider: Bryon Ernandez MD - EKG Data EKG #1 EKG attestation: Yes I reviewed and interpreted this EKG. EKG results narrative: EKG shows a normal sinus rhythm with PVC. Ventricular rate 80. No ST segment elevation or depression. Critical Care Time Critical Care Time: Yes Total Critical Care Time: 35 Attestation: Critical care performed: Time is exclusive of separately billable procedures. Time includes: direct patie nt care, patient reassessment, coordination of patient care, interpretation of data (laboratory data, radiology data, and respiratory data), review of patient's medical records, medical consultation and documentation of patient care. Procedures included in critical care time: Procedures excluded from critical care time: Attestation Statement - Attestation Attestation: I, Mack Yo MD, personally evaluated this patient and discussed their management with the resident physician. I reviewed the resident's note and agree with the documented findings, medical decision making, and plan of care. 73-year-old male with history of coronary artery disease and coronary artery stents presents to the emergency department by ambulance with a complaint of severe mid chest pain which started about 45 minutes prior to arrival. He complains of shortness of breath and nausea with the pain. He states he has intermittent sharp shooting pains to the left shoulder and left arm and to his neck. Patient was just admitted to the hospital here one week ago for chest pain. Apparently between that admission and today he was admitted at another hospital in [place] for chest pain and had what sounds like a stress echocardiogram. He states the doctors there told him if he had any chest pains to get back to the emergency room as soon as possible. He did take nitroglycerin at home which helped the pain some but also gave him a bad headache. On examination patient is a well-developed well-nourished elderly male in no acute distress. He is alert and oriented 3. There is no cyanosis or diaphoresis. Chest is nontender to palpation. Breath sounds are equal bilaterally with just a few faint scattered expiratory wheezes. Heart regular rate and rhythm with occasional ectopy. Abdomen is soft and nontender with normal bowel sounds. Trace pedal edema. EKG shows a normal sinus rhythm with a rate of 80 with PVCs. No acute ischemic changes. Chest x-ray was read as possible early pulmonary edema. Labs reviewed. BNP normal. Troponin normal. Patient had continued chest pain and was placed on a nitroglycerin drip. The hospitalist, Dr. Sharma, was consulted and accepted admission of the [facility].
[2018-10-28] MEDS ORDERED: Nitroglycerin 25 MG/250 ML INFUS..BTL IVC SCH (07:00)
[2018-10-28] MEDS ORDERED: *HR* FentaNYL (PF) 100 MCG/2 ML VIAL IVP ONE (07:01)
[2018-10-28] MEDS ORDERED: Naloxone 0.4 MG/ML INJ IVP PRN (07:20)
--- NOTE | 2018-10-28 07:21 | Internal Med History&Physical ---
Date of Encounter: 10/28/18 Time of Encounter: 08:36 Internal Medicine - H&P: HPI Chief complaint: Chest pain Admitted From: Home Plans for Post Hospital Care: Home History of present illness: Mr. Edwards is a 73 year old male with history of coronary artery disease s/p 2stents, hyperlipidemia, hypertension, remote a smoker 2 and half Per day for 10 years but quit 30 years ago, GERD presents to the emergency department by ambulance with a complaint of severe left sided chest pain rating 10 x 10 started around 5:00 in the morning when he was getting ready to drive back home as he was a staying friend's house. Chest pain was associated with lightheadedness, shortness of breath, dizziness, nausea and radiating to left neck and shoulder. Patient took 3 nitroglycerin at home that held for 10 minutes but again reappeared therefore called the EMS. In ER initial troponin negative with no acute ischemic changes in EKG but chest x-ray possible early pulmonary edema. In ER nitro drip was restarted for persistent chest pain. During my interview patient has 4/10 chest pain and asking for pain medicine. Patient denies fever or chills nausea vomiting dizziness shortness of breath abdominal pain urinary complaint or diarrhea at this time. But he is complaining of headache as he is on nitroglycerin drip. Past Med Surg Social Fam HX - Past Medical History Medical history: coronary artery disease, GERD, hyperlipidemia, hypertension, myocardial infarction Additional medical history: back pain Psychiatric history: no psych history - Past Surgical History Surgical History: angioplasty/stent, appendectomy Additional surgical history: heart stents 07/2017,2015. loop recorder - Social History Smoking Status: Former smoker Smokeless Tobacco Status: No Alcohol use: none Drug use: none - Family History Father Hx Family Cancer: Yes Internal Medicine - H&P: Meds Aspirin [Lo-Dose Aspirin EC] 81 mg PO DAILY 03/20/17 [History] Clopidogrel [Plavix] 75 mg PO DAILY 03/20/17 [History] Metoprolol [Lopressor] 50 mg PO BID 03/20/17 [History] Atorvastatin Calcium [Lipitor] 40 mg PO DAILY 04/20/17 [History] Albuterol Sulfate [Albuterol Inhaler] 2 puff IH Q6HR PRN 05/10/17 [History] Furosemide [Lasix] 20 mg PO DAILY PRN 05/10/17 [History] Finasteride [Proscar] 5 mg PO DAILY 04/16/18 [History] Nitroglycerin [Nitrostat] 0.4 mg SL Q5M PRN 04/16/18 [History] Omeprazole [PriLOSEC] 20 mg PO DAILY 04/16/18 [History] cloNIDine HCl [CloNIDine HCl] 0.1 mg PO BID PRN 04/16/18 [History] Ferrous Sulfate 325 mg PO DAILY 06/04/18 [History] Isosorbide MONOnitrate (24 HR) [Imdur] 90 mg PO DAILY #30 tab.er.24h 08/27/18 [Rx] Lisinopril [Zestril] 30 mg PO DAILY #30 tablet 08/27/18 [Rx] Acetaminophen [Tylenol] 650 mg PO Q6H PRN #0 10/22/18 [Rx] Cyclobenzaprine [Flexeril] 10 mg PO HS 10/22/18 [History] Etodolac 300 mg PO BID 10/22/18 [History] Tamsulosin HCl [Flomax] 0.4 mg PO DAILY 10/22/18 [History] Triamterene/HCTZ 37.5/25mg [Dyazide] 1 tab PO DAILY 10/22/18 [History] Allergy/AdvReac Type Severity Reaction Status Date / Time No Known Allergies Allergy Verified 10/28/18 05:15 All Systems PM: A 10-system review of systems was performed and is negative for pertinent findings except as documented above in the HPI. - Constitutional Vitals: Temp Pulse Resp BP Pulse Ox 98.8 F 92 20 152/84 96 10/28/18 05:18 10/28/18 06:23 10/28/18 06:23 10/28/18 06:23 10/28/18 06:23 Exam: General appearance: No acute distress, A&O X 3 Head exam: Atraumatic Eye exam: EOMI, PERRLA ENT exam: Moist oral mucosa Neck nontender, supple Respiratory exam: Clear to auscultation bilaterally Cardiovascular exam: Regular rate and rhythm, no systolic murmur Abdominal exam: Soft, nontender, nondistended, positive bowel sounds Extremities exam: No calf tenderness, no pedal edema Present: Skin-no rash, warm, dry, intact Neurological exam: Alert, awake, oriented 3, CN II-XII intact, no focal deficits. No facial droop. Normal speech. Internal Med - H&P Results - Labs CBC & Chem 7: 10/28/18 05:28 10/28/18 05:28 Labs: Short CBC 10/28/18 Range/Units 05:28 WBC 6.1 (4.3-11.1) K/mcL Hgb 10.3 L (12.9-16.9) g/dL Hct 32.4 L (37.5-50.1) % Plt Count 243 (140-400) K/mcL Neutrophils # 3.8 (1.6-8.9) K/mcL BMP 10/28/18 05:28 Sodium 137 Potassium 3.9 Chloride 105 Carbon Dioxide 23 BUN 18 Creatinine 1.24 Glucose 109 H Calcium 9.5 Cardiac Enzymes 10/28/18 Range/Units 05:28 Troponin I < 0.03 (< 0.04) ng/mL - Impressions ITS Impressions Chest X-Ray 10/28/18 05:29 IMPRESSION: Possible developing pulmonary edema. D/ / Bryon Ernandez MD / Bryon Ernandez MD Interpreting Provider: Bryon Ernandez MD - Assessment and plan (1) Chest pain Current Visit: Yes Status: Acute Assessment and plan: Most likely unstable angina. Multiple risk factor CAD status post stent, remote a smoker, hypertension, hyperlipidemia. Had recent questionable a stress echo at [place] with some non-emergent concern by cardiology and advised to follow cardiology outpatient. He is really patient recently moved from [place] to [place] and trying to get hooked up with cardiology outpatient. Is still persistent chest pain though better on nitro drip. Will admit patient in telemetry bed, serial troponin, aspirin, statin, heparin drip, nitro drip. Will also start beta april. Echocardiogram ordered and consulted cardiology. Qualifiers: Chest pain type: unspecified Qualified Code(s): R07.9 - Chest pain, unspecified (2) Pulmonary edema Current Visit: Yes Status: Acute Assessment and plan: Early based on chest x-ray. Patient did not take his home dose of Lasix for 2 days. He takes 20 mg Lasix daily. IV Lasix 40 mg 1 ordered will continue to monitor I/O's. Further diuresis based on assessment Qualifiers: Chronicity: acute Qualified Code(s): J81.0 - Acute pulmonary edema (3) Anemia Current Visit: No Status: Chronic Assessment and plan: Has mild anemia but monitor hemoglobin. Hemoccult test ordered. Had recent colonoscopy with polyp Qualifiers: Anemia type: unspecified type Qualified Code(s): D64.9 - Anemia, unspecified (4) Anxiety Current Visit: No Status: Chronic Assessment and plan: Slight anxious. Continue home medicine with close monitoring. (5) CAD (coronary artery disease) Current Visit: No Status: Chronic Assessment and plan: Status post 2 stent possibly in 2017. Continue above-mentioned cardioprotective medicine Qualifiers: Coronary Disease-Associated Artery/Lesion type: [place] artery [place] vs. transplanted heart: [place] heart Associated angina: angina presence unspecified Qualified Code(s): I25.10 - Atherosclerotic heart disease of [place] coronary artery without angina pectoris (6) GERD (gastroesophageal reflux disease) Current Visit: No Status: Chronic Assessment and plan: Continue ranitidine Qualifiers: Esophagitis presence: without esophagitis Qualified Code(s): K21.9 - Gastro-esophageal reflux disease without esophagitis (7) HTN (hypertension) Current Visit: No Status: Chronic Assessment and plan: High blood pressure. At present nitro drip. Beta april is started. Will also add lisinopril. Close monitoring. Qualifiers: Hypertension type: essential hypertension Qualified Code(s): I10 - Essential (primary) hypertension (8) Hyperlipidemia Current Visit: No Status: Chronic Assessment and plan: Fasting lipid profile. Continue statin Qualifiers: Hyperlipidemia type: mixed hyperlipidemia Qualified Code(s): E78.2 - Mixed hyperlipidemia (9) DVT prophylaxis Current Visit: No Status: Acute Assessment and plan: Heparin drip - Time Spent With Patient Total time spent is greater than 50% in coordination of care (as documented) at patient's floor/unit and/or counseling patient: 25 - 35 minutes
[2018-10-28] MEDS ORDERED: *HR* Heparin 5,000 UNIT/ML VIAL IVP ONE (08:34)
[2018-10-28] MEDS ORDERED: *HR* Heparin 5,000 UNIT/ML VIAL IVP PRN ×2 (08:34)
[2018-10-28] MEDS ORDERED: Heparin 25,000 UNIT/500 ML D5W 25,000 UNIT/500 ML BAG IVC SCH (08:45)
[2018-10-28] MEDS ORDERED: Furosemide 40 MG/4 ML VIAL IVP ONE (08:46)
[2018-10-28 09:49] LABS: Hematocrit 32.3 % (37.5-50.1); Mean Corpuscular Hemoglobin 24.2 pg (28.0-33.3); Mean Platelet Volume 9.4 fL (9.4-12.4); Platelet Count 234 K/mcL (140-400); Red Blood Count 4.14 M/mcL (4.19-5.50); Red Cell Distribution Width 16.7 % (11.5-14.5)
[2018-10-28 09:58] LABS: Heparin anti-factor XA UFH 0.04 IU/mL (0.30-0.70)
[2018-10-28 09:59] LABS: Prothrombin Time 11.5 Seconds (9.4-12.1)
[2018-10-28] MEDS: Famotidine 20 MG TABLET PO SCH ×2 (10:00→20:56)
[2018-10-28] MEDS: *HR* FentaNYL (PF) 100 MCG/2 ML VIAL IVP PRN ×3 (10:36→23:29)
--- NOTE | 2018-10-28 11:58 | Cardiology Consult Note ---
Date of Encounter: 10/28/18 Time of Encounter: 11:54 Assessment and Plan (1) Chest pain Current Visit: No Status: Acute Chest pain with mostly atypical features. Last heart cath did not show high grade lesions. Would recommend empiric medical therapy and possible workup for noncardiac etiology. Qualifiers: Chest pain type: precordial pain Qualified Code(s): R07.2 - Precordial pain Discussion w patient/family: The assessment and plan as outlined above was discussed with the patient and/or family members who expressed understanding and agreement. All questions were answered. Thank you for involving us in the care of your patient. Please call with any questions. History of Present Illness Consult date: 10/28/18 Requesting physician: Wily Sharma Consult reason: chest pain Chief complaint: Chest pain History of present illness: Mr. Edwards is a 73 year old male with a history of CAD, S/P cath 05/31 with no intervention performed. Presents with recurrent chest pain. It is described as left sided and radiating to left arm and neck. There are no aggravating or relieving factors. Chest pain is improved somewhat by nitro but only resolved with pain medication. Past Med Surg Social Fam HX - Past Medical History Medical history: coronary artery disease, GERD, hyperlipidemia, hypertension, myocardial infarction Additional medical history: back pain Psychiatric history: no psych history - Past Surgical History Surgical History: angioplasty/stent, appendectomy Additional surgical history: heart stents 07/2017,2015. loop recorder - Social History Smoking Status: Former smoker Smokeless Tobacco Status: No Alcohol use: none Drug use: none - Family History Father Hx Family Cancer: Yes Medications and Allergies Aspirin [Lo-Dose Aspirin EC] 81 mg PO DAILY 03/20/17 [History] Clopidogrel [Plavix] 75 mg PO DAILY 03/20/17 [History] Metoprolol [Lopressor] 50 mg PO BID 03/20/17 [History] Atorvastatin Calcium [Lipitor] 40 mg PO DAILY 04/20/17 [History] Albuterol Sulfate [Albuterol Inhaler] 2 puff IH Q6HR PRN 05/10/17 [History] Furosemide [Lasix] 20 mg PO DAILY PRN 05/10/17 [History] Finasteride [Proscar] 5 mg PO DAILY 04/16/18 [History] Nitroglycerin [Nitrostat] 0.4 mg SL Q5M PRN 04/16/18 [History] Omeprazole [PriLOSEC] 20 mg PO DAILY 04/16/18 [History] cloNIDine HCl [CloNIDine HCl] 0.1 mg PO BID PRN 04/16/18 [History] Ferrous Sulfate 325 mg PO DAILY 06/04/18 [History] Isosorbide MONOnitrate (24 HR) [Imdur] 90 mg PO DAILY #30 tab.er.24h 08/27/18 [Rx] Lisinopril [Zestril] 30 mg PO DAILY #30 tablet 08/27/18 [Rx] Acetaminophen [Tylenol] 650 mg PO Q6H PRN #0 10/22/18 [Rx] Cyclobenzaprine [Flexeril] 10 mg PO HS 10/22/18 [History] Etodolac 300 mg PO BID 10/22/18 [History] Tamsulosin HCl [Flomax] 0.4 mg PO DAILY 10/22/18 [History] Triamterene/HCTZ 37.5/25mg [Dyazide] 1 tab PO DAILY 10/22/18 [History] Allergy/AdvReac Type Severity Reaction Status Date / Time No Known Allergies Allergy Verified 10/28/18 05:15 All Systems Review: The remainder of the systems were reviewed and are negative Physical Examination Vital Signs, Last 4 Hours Temp Pulse Resp BP Pulse Ox 10/28/18 11:07 98.2 F 79 16 151/83 96 10/28/18 08:05 97.6 F 75 18 157/97 94 General: Conversant, No Apparent Distress HEENT: Atraumatic, Normocephaly, Mucus Membranes Moist Neck: No JVD, Normal carotid pulses Cardiac: Reg Rate and Rhythm, Normal S1 and S2, No Murmur Lungs: Normal Breath Sounds, No Wheeze, Rales, Rhonchi Neuro: Alert and responsive, No focal deficits noted Abdomen: Soft, Non-Tender Skin: No rashes noted on visualized skin Musculoskeletal: No Chest Wall Tenderness Extremities: No Clubbing, No Cyanosis, No Edema, Normal Pulses Results 10/28/18 09:31 10/28/18 05:28 Lab Results 10/28/18 10/28/18 10/28/18 05:28 05:28 05:28 WBC 6.1 Hgb 10.3 L Hct 32.4 L Plt Count 243 INR APTT Sodium 137 Potassium 3.9 Chloride 105 Carbon Dioxide 23 BUN 18 Creatinine 1.24 Glucose 109 H Calcium 9.5 Troponin I < 0.03 B-Natriuretic Peptide 30 10/28/18 10/28/18 10/28/18 05:28 09:31 09:31 WBC 7.0 Hgb 10.0 L Hct 32.3 L Plt Count 234 INR 1.0 1.0 APTT 30.7 Sodium Potassium Chloride Carbon Dioxide BUN Creatinine Glucose Calcium Troponin I B-Natriuretic Peptide 10/28/18 10/28/18 10:54 10:54 WBC Hgb Hct Plt Count INR APTT 30.6 Sodium Potassium Chloride Carbon Dioxide BUN Creatinine Glucose Calcium Troponin I < 0.03 B-Natriuretic Peptide - EKG Interpretation EKG results cardiology: personally reviewed (No acute ST changes) Consult Discharge Plan - Plan [facility]errals: [facility] [Primary Care Provider] -
[2018-10-28 17:29] LABS: Basophils % 0.6 %; Eosinophils # 0.3 K/mcL (0.0-0.6); Eosinophils % 4.1 %; Hematocrit 34.9 % (37.5-50.1); Hemoglobin 10.9 g/dL (12.9-16.9); Immature Granulocytes % 0.3 % (0-4); Lymphocytes # 1.2 K/mcL (0.6-4.6); Lymphocytes % 18.1 %; Mean Corpuscular HGB Conc 31.2 g/dL (31.6-35.5); Mean Corpuscular Hemoglobin 24.2 pg (28.0-33.3); Mean Corpuscular Volume 77.6 fL (83.0-100.0); Mean Platelet Volume 9.6 fL (9.4-12.4); Monocytes # 0.7 K/mcL (0.0-1.3); Monocytes % 10.8 %; Neutrophils # 4.2 K/mcL (1.6-8.9); Platelet Count 247 K/mcL (140-400); Red Cell Distribution Width 16.6 % (11.5-14.5); Segmented Neutrophils % 66.1 %
[2018-10-28 23:55] LABS: Basophils % 0.5 %; Eosinophils # 0.3 K/mcL (0.0-0.6); Hematocrit 35.8 % (37.5-50.1); Hemoglobin 11.2 g/dL (12.9-16.9); Immature Granulocytes % 0.3 % (0-4); Lymphocytes # 1.2 K/mcL (0.6-4.6); Lymphocytes % 19.1 %; Mean Corpuscular HGB Conc 31.3 g/dL (31.6-35.5); Mean Corpuscular Hemoglobin 24.3 pg (28.0-33.3); Mean Corpuscular Volume 77.7 fL (83.0-100.0); Mean Platelet Volume 9.5 fL (9.4-12.4); Monocytes # 0.6 K/mcL (0.0-1.3); Neutrophils # 4.1 K/mcL (1.6-8.9); Platelet Count 263 K/mcL (140-400); Red Blood Count 4.61 M/mcL (4.19-5.50); Red Cell Distribution Width 16.8 % (11.5-14.5); Segmented Neutrophils % 66.1 %
[2018-10-29 03:09] LABS: BUN/Creatinine Ratio 13 (6-26); Blood Urea Nitrogen 17 mg/dL (8-23); Calcium 9.6 mg/dL (8.6-10.3); Carbon Dioxide 25 mEq/L (23-29); Chloride 104 mEq/L (98-107); Chol/HDL Ratio 2.4 (0-4.9); Cholesterol 126 mg/dL (< 200); Glucose 123 mg/dL (70-105); HDL Cholesterol 53 mg/dL (40-59); LDL Cholesterol,Calculated 56 mg/dL (0-99); Osmolality,Calculated 287 (280-300); Potassium 3.8 mEq/L (3.5-5.1); Sodium 137 mEq/L (136-145); Triglycerides 85 mg/dL (< 150); eGFR For Non-African Americans 55 (> 60)
[2018-10-29] MEDS ORDERED: *HR* Morphine 2 MG/ML SYRINGE IVP PRN ×2 (04:47→04:56)
[2018-10-29] MEDS ORDERED: Acetaminophen 325 MG TABLET PO PRN (04:49)
[2018-10-29] MEDS: *HR* OxyCODONE Immed Rel 5 MG TABLET PO PRN ×3 (05:10→13:43)
[2018-10-29] MEDS: Famotidine 20 MG TABLET PO SCH (08:08)
[2018-10-29] MEDS ORDERED: Aspirin 81 MG TAB.CHEW PO SCH (09:00)
[2018-10-29] MEDS ORDERED: Lisinopril 20 MG TABLET PO SCH (09:15)
[2018-10-29 11:04] VITALS: BP 128/89
[2018-10-29] MEDS ORDERED: Isosorbide MONOnitrate (24 HR) 30 MG TAB.ER.24H PO SCH (11:30)
--- NOTE | 2018-10-29 12:03 | Cardiology Progress Note ---
Date of Encounter: 10/29/18 Time of Encounter: 12:00 Assessment and Plan (1) Chest pain Current Visit: Yes Status: Acute Patient presented with atypical chest pain symptoms. Troponin negative, no acute ischemic ECG changes. Negative stress test earlier this year. Also [facility] May 2018 demonstrated mild, non-obstructive CAD. Also reports stress test within the past month at [facility] which was reportedly negative. Symptoms started after helping friend move homes which required lifting heavy boxes; he does report hx of "broken back" to lumbar and cervical regions. Would recommend continued work-up for non-cardiac cause of chest discomfort. Will stop IV Heparin gtt and IV ntg gtt. Start po nitrates. Recommend close follow-up with [facility]. Cardiology will sign-off, please call with questions. Qualifiers: Chest pain type: precordial pain Qualified Code(s): R07.2 - Precordial pain Discussion w patient/family: The assessment and plan as outlined above was discussed with the patient and/or family members who expressed understanding and agreement. All questions were answered. Thank you for involving us in the care of your patient. Please call with any questions. The patient will be discussed and reviewed with Dr. Jerry Leslie; changes to be made accordingly. Subjective Principal diagnosis: Chest pain Interval history: Seen and examined. Chest pain free upon exam today. Reports intermittent chest pain since admission. Objective Vital Signs, Last 4 Hours Temp Pulse Resp BP Pulse Ox 10/29/18 11:03 97.7 F 84 20 128/89 93 General: Conversant, No Apparent Distress HEENT: Atraumatic, Normocephaly, Mucus Membranes Moist Neck: No JVD, Normal carotid pulses Cardiac: Reg Rate and Rhythm, Normal S1 and S2, No Murmur Lungs: Normal Breath Sounds, No Wheeze, Rales, Rhonchi Neuro: Alert and responsive, No focal deficits noted Abdomen: Soft, Non-Tender Skin: No rashes noted on visualized skin Musculoskeletal: No Chest Wall Tenderness Extremities: No Clubbing, No Cyanosis, No Edema, Normal Pulses Results 10/28/18 23:32 10/29/18 02:31 Lab Results 10/28/18 10/28/18 10/28/18 17:16 17:16 23:32 WBC 6.4 Hgb 10.9 L Hct 34.9 L Plt Count 247 Sodium Potassium Chloride Carbon Dioxide BUN Creatinine Glucose Calcium Troponin I < 0.03 < 0.03 10/28/18 10/29/18 23:32 02:31 WBC 6.2 Hgb 11.2 L Hct 35.8 L Plt Count 263 Sodium 137 Potassium 3.8 Chloride 104 Carbon Dioxide 25 BUN 17 Creatinine 1.28 Glucose 123 H Calcium 9.6 Troponin I Active Medications Acetaminophen (Tylenol) 650 mg PO Q6HR PRN PRN Reason: Pain Stop: 04/30/19 04:50 Last Admin: 10/29/18 05:10 Dose: 650 mg Aspirin (Aspirin) 81 mg PO DAILY [facility] Stop: 04/30/19 09:01 Last Admin: 10/29/18 08:08 Dose: 81 mg Clopidogrel Bisulfate (Plavix) 75 mg PO DAILY [facility] Stop: 04/29/19 09:01 Last Admin: 10/29/18 08:08 Dose: 75 mg Famotidine (Pepcid) 20 mg PO BID [facility]; Protocol Stop: 04/29/19 09:01 Last Admin: 10/29/18 08:08 Dose: 20 mg Isosorbide Mononitrate (Imdur) 30 mg PO DAILY [facility] Stop: 04/30/19 11:31 Lisinopril (Zestril) 20 mg PO DAILY [facility]; Protocol Stop: 04/30/19 09:16 Metoprolol Tartrate (Lopressor) 50 mg PO BID [facility] Stop: 04/30/19 09:01 Last Admin: 10/29/18 08:08 Dose: 50 mg Naloxone HCl (Narcan) 0.4 mg IVP Q2MIN PRN PRN Reason: SEE COMMENTS Stop: 04/29/19 07:21 Oxycodone HCl (Roxicodone) 10 mg PO Q4H PRN PRN Reason: SEVERE PAIN (7-10) Stop: 04/30/19 04:53 Last Admin: 10/29/18 09:15 Dose: 10 mg Simvastatin (Zocor) 40 mg PO HS [facility]; Protocol Stop: 04/29/19 21:01 Last Admin: 10/28/18 20:56 Dose: 40 mg - Imaging and Cardiology Stress Test: report reviewed Echo: report reviewed Cardiac cath: report reviewed Other Results: 12 hour tele: avg HR=87 SR. Frequent PVCs - EKG Interpretation EKG results cardiology: personally reviewed Consult Discharge Plan - Plan [facility]errals: [facility] [Primary Care Provider] -
[2018-10-29] MEDS ORDERED: Isovue-370 500 ML INFUS..BTL IV ONE (13:26)
--- NOTE | 2018-10-29 15:15 | Discharge Summary ---
- NOTES TO OUTPATIENT PROVIDER Notes to Outpatient Provider: Follow with PCP in 3-5 days. Follow-up we have cardiology in 1-2 week Orders not resulted at time of discharge: Pending orders 10/28/18 05:29 ECG 12 lead ECG [ECG] Stat 10/28/18 07:26 Stool guiac [Occult Blood,Stool] [BF] Routine Date of Encounter: 10/29/18 Time of Encounter: 15:09 - Discharge Diagnosis (1) Chest pain Priority: Primary Status: Acute Assessment and Plan: Atypical. Multiple risk factor CAD status post stent, remote a smoker, hypertension, hyperlipidemia. Serial troponin has been negative. Consulted call worker person who does not appreciate acute cardiological event contributing for this chest pain and advised to stop heparin drip and nitro drip. Patient had ne gative stress test earlier this year [facility], non-obstructive CAD. Also reports stress test within the past month at [facility] which was reportedly negative. Echocardiogram with EF 60% mild concentric LVH mild LVEDD. Raised d-dimer therefore CT angiogram ordered that ruled out PE Now patient is chest pain-free. Okay to discharge from cardiology from cardiac standpoint. Patient needs to follow with [place] cardiology Qualifiers: Chest pain type: unspecified Qualified Code(s): R07.9 - Chest pain, unspecified (2) Pulmonary edema Priority: Primary Status: Acute Assessment and Plan: Early based on chest x-ray. Patient did not take his home dose of Lasix for 2 days. He takes 20 mg Lasix daily. IV Lasix 40 mg 1 given and patient had good diuresis. No shortness of breath. Continue home dose of Lasix Qualifiers: Chronicity: acute Qualified Code(s): J81.0 - Acute pulmonary edema (3) Anemia Priority: Secondary Status: Chronic Assessment and Plan: Has chronic mild anemia . Is stable and follow with PCP. Had recent colonoscopy with polyp Qualifiers: Anemia type: unspecified type Qualified Code(s): D64.9 - Anemia, unspecified (4) Anxiety Priority: Secondary Status: Chronic Assessment and Plan: Stable. Continue home medicine (5) CAD (coronary artery disease) Priority: Secondary Status: Chronic Assessment and Plan: Status post 2 stent possibly in 2017. Continue above-mentioned cardioprotective medicine Qualifiers: Coronary Disease-Associated Artery/Lesion type: [place] artery [place] vs. transplanted heart: [place] heart Associated angina: angina presence unspecified Qualified Code(s): I25.10 - Atherosclerotic heart disease of [place] coronary artery without angina pectoris (6) GERD (gastroesophageal reflux disease) Priority: Secondary Status: Chronic Assessment and Plan: Continue ranitidine Qualifiers: Esophagitis presence: without esophagitis Qualified Code(s): K21.9 - Gastro-esophageal reflux disease without esophagitis (7) HTN (hypertension) Priority: Secondary Status: Chronic Assessment and Plan: Well controlled. Continue home medicine Qualifiers: Hypertension type: essential hypertension Qualified Code(s): I10 - Essential (primary) hypertension (8) Hyperlipidemia Priority: Secondary Status: Chronic Assessment and Plan: Continue home medicine Qualifiers: Hyperlipidemia type: mixed hyperlipidemia Qualified Code(s): E78.2 - Mixed hyperlipidemia Hospital course: Mr. Edwards is a 73 year old male patient with multiple cardiac risk factor got admitted chest pain rule out ACS. Screw Down was consulted and okay to discharge patient home. Please see details in diagnosis section of discharge summary. At the time of discharge patient is ambulating him a tolerating oral diet, chest pain free with no shortness of breath. Discharge discussed with: patient, nurse - Time Spent with Patient Total time spent providing and/or coordinating discharge services: Less than 30 minutes - Discharge Medications Home Medications: Aspirin [Lo-Dose Aspirin EC] 81 mg PO DAILY 03/20/17 [History] Clopidogrel [Plavix] 75 mg PO DAILY 03/20/17 [History] Metoprolol [Lopressor] 50 mg PO BID 03/20/17 [History] Atorvastatin Calcium [Lipitor] 40 mg PO DAILY 04/20/17 [History] Albuterol Sulfate [Albuterol Inhaler] 2 puff IH Q6HR PRN 05/10/17 [History] Furosemide [Lasix] 20 mg PO DAILY PRN 05/10/17 [History] Finasteride [Proscar] 5 mg PO DAILY 04/16/18 [History] Nitroglycerin [Nitrostat] 0.4 mg SL Q5M PRN 04/16/18 [History] Omeprazole [PriLOSEC] 20 mg PO DAILY 04/16/18 [History] cloNIDine HCl [CloNIDine HCl] 0.1 mg PO BID PRN 04/16/18 [History] Ferrous Sulfate 325 mg PO DAILY 06/04/18 [History] Isosorbide MONOnitrate (24 HR) [Imdur] 90 mg PO DAILY #30 tab.er.24h 08/27/18 [Rx] Lisinopril [Zestril] 30 mg PO DAILY #30 tablet 08/27/18 [Rx] Acetaminophen [Tylenol] 650 mg PO Q6H PRN #0 10/22/18 [Rx] Cyclobenzaprine [Flexeril] 10 mg PO HS 10/22/18 [History] Etodolac 300 mg PO BID 10/22/18 [History] Tamsulosin HCl [Flomax] 0.4 mg PO DAILY 10/22/18 [History] Triamterene/HCTZ 37.5/25mg [Dyazide] 1 tab PO DAILY 10/22/18 [History] Allergies/Adverse Reactions: Allergy/AdvReac Type Severity Reaction Status Date / Time No Known Allergies Allergy Verified 10/28/18 05:15 Date of admission: 10/28/18 07:07 [facility] care physician: [facility] Consults: 10/28/18 08:33 Consult to Cardiology [CONS] Routine Comment: Consulting Provider: Cardiology [place] Reason for Consult: Rule out ACS. Persistent chest pain Call Completed: Yes - Constitutional Vitals: Temp Pulse Resp BP Pulse Ox 97.7 F 84 20 128/89 93 10/29/18 11:03 10/29/18 11:03 10/29/18 11:03 10/29/18 11:03 10/29/18 11:03 Exam: General appearance: No acute distress, A&O X 3 Head exam: Atraumatic Eye exam: EOMI, PERRLA ENT exam: Moist oral mucosa Neck nontender, supple Respiratory exam: Clear to auscultation bilaterally Cardiovascular exam: Regular rate and rhythm, no systolic murmur Abdominal exam: Soft, nontender, nondistended, positive bowel sounds Extremities exam: No calf tenderness, no pedal edema Present: Skin-no rash, warm, dry, intact Neurological exam: Alert, awake, oriented 3, CN II-XII intact, no focal deficits. No facial droop. Normal speech. Normal gait. Romberg sign negative - Patient Status Disposition: Home, Self-Care Condition: Good Overall status at discharge: patient is back to baseline - Discharge Instructions Follow Up With: [facility] [Primary Care Provider] - - Diet and Activity Diet: advance to your usual diet, low fat, low cholesterol, low salt diet
--- NOTE | 2018-10-30 14:11 | Electrocardiograph Report ---
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
== END 2018-10-29 16:26 | disposition home or self-care (01) ==
LOC: 2NENU 05:12 → EMEROOARM 05:12 → 2NENU 07:49
PROVIDERS: ADMIT Family Medicine; ATTEND Family Medicine

== ENCOUNTER 2018-11-14 08:44 | Observation (INO) ==
[2018-11-14 10:56] VITALS: BP 116/73
[2018-11-14] MEDS ORDERED: *HR* OxyCODONE Immed Rel 5 MG TABLET PO ONE (11:50)
[2018-11-14] MEDS ORDERED: Naloxone 0.4 MG/ML INJ IVP PRN (13:59)
[2018-11-14] MEDS ORDERED: Furosemide 20 MG TABLET PO PRN (14:01)
[2018-11-14] MEDS ORDERED: cloNIDine HCl 0.1 MG TABLET PO PRN (14:01)
[2018-11-14] MEDS ORDERED: Acetaminophen 325 MG TABLET PO PRN (14:01)
--- NOTE | 2018-11-14 14:38 | Internal Med History&Physical ---
Date of Encounter: 11/14/18 Time of Encounter: 13:00 Internal Medicine - H&P: HPI Chief complaint: chest pain History of present illness: Patient is a 73-year-old male with past medical history significant for coronary arterial disease with 2 stents placed in 2015 and 2016 with multiple admissions in the last year for chest pain who presents with the same. He reports while watching [employer] celebration earlier this morning around 3 AM he developed left-sided chest pain which he describes as achy which radiated up the left side of his neck. Patient denied any provoking or relieving factors. He was concerned so decided to go to [facility] ER for further evaluation and was subsequently transferred to [facility] for ACS rule out. Review of labs from [facility] revealed no ST/T-wave changes on EKG; troponins were not able to be identified therefore stat troponins were ordered. Patient was sent over on nitro drip which is controlling chest pain for now and will continue. Past Med Surg Social Fam HX - Past Medical History Medical history: coronary artery disease, GERD, hyperlipidemia, hypertension, myocardial infarction Additional medical history: back pain Psychiatric history: no psych history - Past Surgical History Surgical History: angioplasty/stent, appendectomy Additional surgical history: heart stents 07/2017,2015. loop recorder - Social History Smoking Status: Former smoker Smokeless Tobacco Status: No Alcohol use: none Drug use: none - Family History Father Hx Family Cancer: Yes Internal Medicine - H&P: Meds Aspirin [Lo-Dose Aspirin EC] 81 mg PO DAILY 03/20/17 [History] Clopidogrel [Plavix] 75 mg PO DAILY 03/20/17 [History] Metoprolol [Lopressor] 50 mg PO BID 03/20/17 [History] Atorvastatin Calcium [Lipitor] 40 mg PO DAILY 04/20/17 [History] Albuterol Sulfate [Albuterol Inhaler] 2 puff IH Q6HR PRN 05/10/17 [History] Furosemide [Lasix] 20 mg PO DAILY PRN 05/10/17 [History] Finasteride [Proscar] 5 mg PO DAILY 04/16/18 [History] Nitroglycerin [Nitrostat] 0.4 mg SL Q5M PRN 04/16/18 [History] Omeprazole [PriLOSEC] 20 mg PO DAILY 04/16/18 [History] cloNIDine HCl [CloNIDine HCl] 0.1 mg PO BID PRN 04/16/18 [History] Ferrous Sulfate 325 mg PO DAILY 06/04/18 [History] Isosorbide MONOnitrate (24 HR) [Imdur] 90 mg PO DAILY #30 tab.er.24h 08/27/18 [Rx] Lisinopril [Zestril] 30 mg PO DAILY #30 tablet 08/27/18 [Rx] Acetaminophen [Tylenol] 650 mg PO Q6H PRN #0 10/22/18 [Rx] Cyclobenzaprine [Flexeril] 10 mg PO HS 10/22/18 [History] Etodolac 300 mg PO BID 10/22/18 [History] Tamsulosin HCl [Flomax] 0.4 mg PO DAILY 10/22/18 [History] Triamterene/HCTZ 37.5/25mg [Dyazide] 1 tab PO DAILY 10/22/18 [History] Allergy/AdvReac Type Severity Reaction Status Date / Time No Known Allergies Allergy Verified 10/28/18 05:15 All Systems PM: A 10-system review of systems was performed and is negative for pertinent findings except as documented above in the HPI. - Constitutional Vitals: Temp Pulse Resp BP Pulse Ox 98.0 F 66 22 116/73 95 11/14/18 10:55 11/14/18 10:55 11/14/18 10:55 11/14/18 10:55 11/14/18 10:55 General appearance: Present: A&O X 3, no acute distress Exam: As above - Head Head exam: Present: normocephalic - Eye Eye exam: Present: normal appearance - Respiratory Respiratory exam: Present: CTAB. Absent: accessory muscle use, rales, rhonchi, wheezes - Cardiovascular Cardiovascular exam: Present: RRR, +S1, +S2. Absent: diastolic murmur, gallop, rubs, systolic murmur - GI/Abdominal GI/Abdominal exam: Present: normal bowel sounds, soft, no peritoneal signs. Absent: distended, tenderness - Extremities Exam Extremities exam: Absent: pedal edema - Neurological Exam Neurological exam: Present: oriented X3 - Psychiatric Psychiatric exam: Present: normal mood - Skin Skin exam: Present: normal color Internal Med - H&P Results - Labs Labs: Cardiac Enzymes 11/14/18 Range/Units 13:48 Troponin I < 0.03 (< 0.04) ng/mL - Assessment and plan (1) Chest pain Current Visit: No Status: Acute Assessment and plan: Patient with past medical history significant for coronary arterial disease with 2 stents placed in 2015 and 2016 with multiple admissions in the last year for chest pain who presents with the same. Patient has had 7 admissions for chest pain in the last year just at [facility]. Patient returns again for chest pain Patient had a nuclear medicine stress tests on 12/2017 which was negative, left heart catheterization on 05/2018 which showed mild coronary artery disease and a recent echocardiogram on 10/23/18 which showed LVEF of 60% with mild diastolic heart failure. EKG this admission with no ST/T-wave changes Will cycle troponins and monitor on telemetry Will continue nitro drip for chest pain control Discussed with desktop publishing associate who has been consulted and will see the patient in the a.m. Qualifiers: Chest pain type: precordial pain Qualified Code(s): R07.2 - Precordial pain (2) CAD (coronary artery disease) Current Visit: No Status: Chronic Assessment and plan: Patient with 2 coronary arterial stents as above and 2015 and 2016 Patient follows with [facility] for cardiology Qualifiers: Coronary Disease-Associated Artery/Lesion type: [place] artery [place] vs. transplanted heart: [place] heart Associated angina: angina presence unspecified Qualified Code(s): I25.10 - Atherosclerotic heart disease of [place] coronary artery without angina pectoris (3) Drug-seeking behavior Current Visit: No Status: Chronic Assessment and plan: Per staff, patient has exhibited drug seeking behavior in the past and this admission has requested narcotics for his chest pain. Discussed with patient in detail about his coronary arterial disease and the management and treatment for this which does not require narcotics but nitroglycerin as above and to rule out ACS. Patient verbalized understanding. (4) HTN (hypertension) Current Visit: No Status: Chronic Assessment and plan: Continue patient's home dose of beta april and ALBIN inhibitor in addition to triamterene/hydrochlorothiazide Qualifiers: Hypertension type: essential hypertension Qualified Code(s): I10 - Essential (primary) hypertension (5) Hyperlipidemia Current Visit: No Status: Chronic Qualifiers: Hyperlipidemia type: mixed hyperlipidemia Qualified Code(s): E78.2 - Mixed hyperlipidemia (6) DVT prophylaxis Current Visit: No Status: Acute Assessment and plan: Heparin subcutaneous - Time Spent With Patient Total time spent is greater than 50% in coordination of care (as documented) at patient's floor/unit and/or counseling patient:
[2018-11-14] MEDS ORDERED: Nitroglycerin 25 MG/250 ML INFUS..BTL IVC SCH (14:45)
--- NOTE | 2018-11-14 14:58 | Discharge Summary ---
Date of Encounter: 11/14/18 Time of Encounter: 14:00 - Discharge Diagnosis (1) Chest pain Priority: Primary Status: Acute Qualifiers: Chest pain type: precordial pain Qualified Code(s): R07.2 - Precordial pain (2) CAD (coronary artery disease) Priority: Secondary Status: Chronic Qualifiers: Coronary Disease-Associated Artery/Lesion type: [place] artery [place] vs. transplanted heart: [place] heart Associated angina: angina presence unspecifi ed Qualified Code(s): I25.10 - Atherosclerotic heart disease of [place] coronary artery without angina pectoris (3) Drug-seeking behavior Priority: Primary Status: Chronic (4) HTN (hypertension) Priority: Secondary Status: Chronic Qualifiers: Hypertension type: essential hypertension Qualified Code(s): I10 - Essential (primary) hypertension (5) Hyperlipidemia Priority: Secondary Status: Chronic Qualifiers: Hyperlipidemia type: mixed hyperlipidemia Qualified Code(s): E78.2 - Mixed hyperlipidemia Hospital course: Patient is a 73-year-old male with past medical history significant for coronary arterial disease with 2 stents placed in 2015 and 2016 with multiple admissions in the last year for chest pain who presents with the same. He reports while watching [employer] celebration earlier this morning around 3 AM he developed left-sided chest pain which he describes as achy which radiated up the left side of his neck. Patient denied any provoking or relieving factors. He was concerned so decided to go to [facility] ER for further evaluation and was subsequently transferred to [facility] for ACS rule out. Review of labs from [facility][note 3] revealed no ST/T-wave changes on EKG; troponins were not able to be identified therefore stat troponins were ordered. Patient was sent over on nitro drip which is controlling chest pain for now and will continue. Patient had a nuclear medicine stress tests on 12/2017 which was negative, left heart catheterization on 05/2018 which showed mild coronary artery disease and a recent echocardiogram on 10/23/18 which showed LVEF of 60% with mild diastolic heart failure. Discussed with room service supervisor who has been consulted and will see the patient in the a.m. Per staff, patient has exhibited drug seeking behavior in the past and this admission has requested narcotics for his chest pain. Discussed with patient in detail about his coronary arterial disease and the management and treatment for this which does not require narcotics but nitroglycerin as above and to rule out ACS. Patient verbalized understanding. Was informed by nursing staff however that patient wishes to sign out AGAINST MEDICAL ADVICE. - Time Spent with Patient Total time spent providing and/or coordinating discharge services: Less than 30 minutes - Discharge Medications Home Medications: Aspirin [Lo-Dose Aspirin EC] 81 mg PO DAILY 03/20/17 [History] Clopidogrel [Plavix] 75 mg PO DAILY 03/20/17 [History] Metoprolol [Lopressor] 50 mg PO BID 03/20/17 [History] Atorvastatin Calcium [Lipitor] 40 mg PO DAILY 04/20/17 [History] Albuterol Sulfate [Albuterol Inhaler] 2 puff IH Q6HR PRN 05/10/17 [History] Furosemide [Lasix] 20 mg PO DAILY PRN 05/10/17 [History] Finasteride [Proscar] 5 mg PO DAILY 04/16/18 [History] Nitroglycerin [Nitrostat] 0.4 mg SL Q5M PRN 04/16/18 [History] Omeprazole [PriLOSEC] 20 mg PO DAILY 04/16/18 [History] cloNIDine HCl [CloNIDine HCl] 0.1 mg PO BID PRN 04/16/18 [History] Ferrous Sulfate 325 mg PO DAILY 06/04/18 [History] Isosorbide MONOnitrate (24 HR) [Imdur] 90 mg PO DAILY #30 tab.er.24h 08/27/18 [Rx] Lisinopril [Zestril] 30 mg PO DAILY #30 tablet 08/27/18 [Rx] Acetaminophen [Tylenol] 650 mg PO Q6H PRN #0 10/22/18 [Rx] Cyclobenzaprine [Flexeril] 10 mg PO HS 10/22/18 [History] Etodolac 300 mg PO BID 10/22/18 [History] Tamsulosin HCl [Flomax] 0.4 mg PO DAILY 10/22/18 [History] Triamterene/HCTZ 37.5/25mg [Dyazide] 1 tab PO DAILY 10/22/18 [History] Allergies/Adverse Reactions: Allergy/AdvReac Type Severity Reaction Status Date / Time No Known Allergies Allergy Verified 10/28/18 05:15 Date of admission: 11/14/18 10:40 Primary care physician: PCP NONE Consults: 11/14/18 14:28 Consult to Cardiology [CONS] Routine Consulting Provider: Cardiology Y[facility] Comment: Reason for Consult: Chest pain Call Completed: Yes - Constitutional Vitals: Temp Pulse Resp BP Pulse Ox 98.0 F 66 22 116/73 95 11/14/18 10:55 11/14/18 10:55 11/14/18 10:55 11/14/18 10:55 11/14/18 10:55 General appearance: Present: A&O X 3, no acute distress Exam: Gen.: Nonacute distress, alert and oriented 3 ENT: Mucosal membranes moist Respiratory: Lungs are clear to auscultation bilaterally without any wheezing rhonchi or rales Cardiovascular: Normal S1 and S2 regular rate rhythm no murmurs rubs or gallops Abdomen: Soft, nontender and nondistended with positive bowel sounds Extremities: No lower extremity edema Skin: Normal color - Patient Status Disposition: Left Against Medical Advice - Discharge Instructions [facility]Primary Care Provider[facility] -
[2018-11-14] MEDS ORDERED: ETODOLAC 300 MG PO SCH (21:00)
[2018-11-15] MEDS ORDERED: Isosorbide MONOnitrate (24 HR) 30 MG TAB.ER.24H PO SCH (09:00)
[2018-11-15] MEDS ORDERED: Aspirin Enteric Coated 81 MG Tablet PO SCH (09:00)
[2018-11-15] MEDS ORDERED: Finasteride 5 MG TABLET PO SCH (09:00)
[2018-11-15] MEDS ORDERED: Lisinopril 20 MG TABLET PO SCH (09:00)
== END 2018-11-14 14:50 | disposition left against medical advice (07) ==
LOC: INTOOBSV 10:40 → 2ANU 10:40
PROVIDERS: ADMIT Internal Medicine; ATTEND Hospitalist